=== PATIENT | female | born 1990 | race Caucasian/White ===

== ENCOUNTER 2016-12-13 04:47 | Observation (INO) | payer OTHER, MEDICARE, MEDICAID ==
[~2016-12-13] VITALS: Ht 167.6 cm; Wt 111.0 kg
[~2016-12-13 04:47] MED LIST: AC325T PO; ACHD5005 PO; ALBU17AE23 IH; ALBU17AE3 IH; ALPR.25T PO; ALPR.5T; ALPR.5T PO; AMOX1TAB10 PO; AMOX400S7 PO; AMOX500C2; AMOX500C2 PO; AZIT250T PO; AZTH250C PO; BACL10TA; BARIATRIC VITAMIN PO; BIRTH CONTROL; CEFP500T4 PO; CEFU500T5 PO; CEPH500C PO; CLON0.5T3; CYCL10TA9 PO; DCS100C PO; DOXY100C2 PO; ESCI5SOL PO; ESOM20SU PO; FAMO1TAB21 PO; FLC100T1 PO; FLC150T PO; FLUC200T45 PO; HCT25T PO; HCTZ12.5T PO; HYDR-3454 PO; HYDR-3812; HYDR118S10 PO; HYDR1TAB PO; HYOS0.1216 PO; LEVO500T69 PO; LEXAPRO; LORA10TA7; LSNP10T PO; MDR10T PO; METF-380 PO; METH4TAB PO; METR500T PO; MTF500T PO; NAPR-243 PO; NEOM10SO20 RIGHT EAR; NFMET1000; NYST1000; NYST1POW15 TOP; ONDA-42 SL; ONDA4TAB8 PO; PANT40TA PO; PRCD5U PO; PRD20T PO; PRM25T PO; PROM25SU10 PR; ROBITUSSIN; RT-ALBUINH IH; SCR1T PO; SMV10T PO; SSD50T TOP; SULF1TAB38 PO; TOPAMAX; TRAM-21 PO; TRIA16.5 NSEACH; TRM50T PO; [UNRECOGNIZED DRUG - OTHER]
[2016-12-13 05:14] LABS: BILIRUBIN,URINE NEGATIVE (NEGATIVE); KETONES,URINE NEGATIVE (NEGATIVE); LEUKOCYTE ESTERASE ,URINE 3+ (NEGATIVE); NITRITE,URINE NEGATIVE (NEGATIVE); PH,URINE 5 (5-9); PROTEIN,URINE 2+ (NEGATIVE); UROBILINOGEN,URINE 1 MG/DL (NORMAL)
[2016-12-13 05:31] LABS: MEAN PLATELET VOLUME 10.8 FL (7.4-10.4); RED BLOOD COUNT 4.61 10^6/uL (4.35-5.85); RED CELL DISTRIBUTION WIDTH 12.9 % (10.0-14.5); WHITE BLOOD COUNT 9.3 10^3/uL (4.3-11.0)
[2016-12-13] MEDS ORDERED: NS IV 1000 ML 1,000 ML ONE (05:33)
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
[2016-12-13 05:34] LABS: WBC,URINE 25-50 /HPF
[2016-12-13] MEDS ORDERED: NS IV 1000 ML 1,000 ML IV ONE (05:36)
[2016-12-13] MEDS ORDERED: BUSP10TA95 (05:39)
[2016-12-13] MEDS ORDERED: TRAZODONE (05:39)
[2016-12-13 05:49] LABS: ALANINE AMINOTRANSFERASE 54 U/L (0-55); ALBUMIN 3.9 G/DL (3.2-4.5); ALCOHOL 30 MG/DL (<10); ANION GAP 11 MMOL/L (5-14); ASPARTATE AMINO TRANSFERASE 67 U/L (5-34); BILIRUBIN,DIRECT 0.2 MG/DL (0.0-0.3); BILIRUBIN,INDIRECT 0.3 MG/DL; BILIRUBIN,TOTAL 0.5 MG/DL (0.1-1.0); BLOOD UREA NITROGEN 8 MG/DL (7-18); BUN/CREATININE RATIO 12; CALCIUM 8.9 MG/DL (8.5-10.1); CARBON DIOXIDE 22 MMOL/L (21-32); CHLORIDE 107 MMOL/L (98-107); CREATININE SERUM 0.67 MG/DL (0.60-1.30); GFR ESTIMATED > 60; GLUCOSE 78 MG/DL (70-105); POTASSIUM 4.2 MMOL/L (3.6-5.0); SODIUM 140 MMOL/L (135-145); TOTAL PROTEIN 7.9 G/DL (6.4-8.2)
[2016-12-13 05:55] LABS: TROPONIN I < 0.30 NG/ML (<0.30)
[2016-12-13] MEDS ORDERED: fentaNYL INJECTION 100 MCG/2 ML AMP IVP ONE (06:30)
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
[2016-12-13 07:45] VITALS: BP 130/84
[2016-12-13] MEDS ORDERED: BUSP5TAB59 PO (08:09)
[2016-12-13] MEDS ORDERED: TRAZ150T72 PO (08:09)
[2016-12-13] MEDS ORDERED: BACL10TA PO (08:09)
[2016-12-13] MEDS ORDERED: DULO60CA6 PO (08:09)
[2016-12-13] MEDS ORDERED: HYDR-3812 PO (08:09)
[2016-12-13] MEDS ORDERED: fentaNYL INJECTION 100 MCG/2 ML AMP IV PRN (08:15)
[2016-12-13] MEDS ORDERED: CATHETER FLUSH 10 ML SYR IV PRN (08:15)
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
[2016-12-13] MEDS ORDERED: cefTRIAXone INJECTION 1,000 MG in NS (IVPB) 50 ML IV SCH (09:00)
[2016-12-13] MEDS ORDERED: ACET-2267 PO (09:04)
[2016-12-13] MEDS ORDERED: BARIATRIC ADVANTAGE PO (09:04)
[2016-12-13] MEDS ORDERED: BUSP10TA95 PO (09:04)
[2016-12-13] MEDS ORDERED: HYDROcodone/APAP 5 MG/325 MG (LORTAB) TAB PO PRN (09:45)
[2016-12-13] MEDS ORDERED: DULoxetine 30 MG (CYMBALTA) CAP PO SCH (10:00)
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
[2016-12-13] MEDS ORDERED: busPIRone 5 MG (BUSPAR) TAB PO SCH (13:00)
[2016-12-13] MEDS ORDERED: BACLOFEN 10 MG (LIORESAL) TAB PO SCH (13:00)
[2016-12-13] MEDS ORDERED: busPIRone 10 MG (BUSPAR) TAB PO SCH (13:00)
[2016-12-13] MEDS ORDERED: CATHETER FLUSH 10 ML SYR IV SCH (14:00)
[2016-12-13] MEDS ORDERED: traZODone 150 MG (DESYREL) TABLET PO SCH (21:00)
== END 2016-12-13 14:33 | disposition home or self-care (01) ==
LOC: EDUNIT# 04:47 → ER 04:49 → UNDOADMOB 07:15 → ICU 07:15 → UNDODISOB 14:55
PROVIDERS: ADMIT Family Medicine; ATTEND Family Medicine
DX: S30.1XXA Contusion of abdominal wall, initial encounter (principal); S80.02XA Contusion of left knee, initial encounter; S20.212A Contusion of left front wall of thorax, initial encounter; S20.211A Contusion of right front wall of thorax, initial encounter; J45.909 Unspecified asthma, uncomplicated; G47.30 Sleep apnea, unspecified; I10 Essential (primary) hypertension; E11.9 Type 2 diabetes mellitus without complications; E66.01 Morbid (severe) obesity due to excess calories; E03.9 Hypothyroidism, unspecified; F31.9 Bipolar disorder, unspecified; F20.9 Schizophrenia, unspecified; Z68.39 Body mass index [BMI] 39.0-39.9, adult; V48.5XXA Car driver injured in noncollision transport accident in traffic accident, initial encounter
CPT/HCPCS: 36415; 70450; 71010; 71260; 72125; 74177; 80048; 80076; 80320; 81000; 84484; 84703; 85027; 86850; 86900; 86901; 87088; 87186; 93005; 93041

== ENCOUNTER 2017-01-05 11:06 | Emergency (ER) | payer MEDICARE, MEDICAID ==
[~2017-01-05] VITALS: Ht 167.6 cm; Wt 111.0 kg
[~2017-01-05 11:06] MED LIST changes: +ACET-2267 PO; +BACL10TA PO; +BARIATRIC ADVANTAGE PO; +BUSP10TA95; +BUSP10TA95 PO; +BUSP5TAB59 PO; +DULO60CA6 PO; +HYDR-3812 PO; +TRAZ150T72 PO; +TRAZODONE
[2017-01-05] MEDS ORDERED: KETOROLAC 30 MG/ML VIAL ONE (11:32)
--- NOTE | 2017-01-05 11:37 | ED GU-Female ---
General Chief Complaint: -Female Stated Complaint: UTI, FEVER Nursing Triage Note: States having pain with urination times3 days, nausea vomiting. pain to low back and bilat flank area. Unable to give urine sample Nursing Sepsis Screen: Possible Sepsis Risk Source: patient Exam Limitations: no limitations History of Present Illness Time seen by provider: 11:36 Initial Comments To ER with a three-day history of nausea vomiting, midline low back pain, chills , urinary hesitancy and frequency. Timing/Duration: just prior to arrival Severity/Quality: moderate Radiation: none Activities at Onset: none Prior Genitourinary Problems: none Associated Symptoms: dysuria Allergies and Home Medications Allergies Coded Allergies: levofloxacin (Unverified Allergy, Mild, N/V, 01/05/17) Home Medications Acetaminophen 500 Mg Tablet, 500-1,000 MG PO Q4H PRN for PAIN-MILD, (Reported) Baclofen 10 Mg Tablet, 10 MG PO TID, (Reported) Buspirone HCl 5 Mg Tablet, 5 MG PO TID, (Reported) TAKES ALONG WITH 10MG TABLET FOR TOTAL DOSE OF 15MG Buspirone HCl 10 Mg Tablet, 10 MG PO TID, (Reported) TAKES ALONG WITH 5MG TABLET FOR TOTAL DAILY DOSE OF 15MG Duloxetine HCl 60 Mg Capsule.dr, 120 MG PO DAILY, (Reported) TAKES 2 (60MG) CAPSULES Hydrocodone/Acetaminophen 1 Each Tablet, 1 TAB PO BID PRN for PAIN-MODERATE, ( Reported) Ondansetron 8 Mg Tab.rapdis, 8 MG PO Q6H PRN for NAUSEA/VOMITING-1ST LINE, #10 Prescribed by: SHALINI POON on 01/05/17 1256 Sulfamethoxazole/Trimethoprim 1 Each Tablet, 1 EACH PO BID, #14 Prescribed by: SHALINI POON on 01/05/17 1256 Trazodone HCl 150 Mg Tablet, 300 MG PO HS, (Reported) TAKES 2 (150MG) TABLETS [Bariatric Advantage] , 1 TAB PO TID, (Reported) Constitutional: see HPI, chills, No fever, malaise EENTM: see HPI Respiratory: no symptoms reported Cardiovascular: no symptoms reported Gastrointestinal: nausea, vomiting Genitourinary: see HPI, burning, dysuria, frequency, flank pain Musculoskeletal: no symptoms reported Skin: no symptoms reported Psychiatric/Neurological: No Symptoms Reported Past [place]-Hwqexb-Awgnjh Hx Patient Social History Alcohol Use: Rarely Uses Recreational Drug Use: No Smoking Status: Never a Smoker 2nd Hand Smoke Exposure: No Recent Foreign Travel: No Contact w/Someone Who Travel: No Recent Infectious Disease Expo: No Recent Hopitalizations: No Immunizations Up To Date Tetanus Booster (TDap): Less than 5yrs PED Vaccines UTD: No Date of Influenza Vaccine: May 06, 2014 Seasonal Allergies Seasonal Allergies: No Surgeries HX Surgeries: Yes (LAP BAND , EAR TUBES, lap band removed, duodenal switch, EGD) Surgeries: Abdominal, Appendectomy, Ear Surgery, Gallbladder Respiratory Hx Respiratory Disorders: Yes (cpap at night) Respiratory Disorders: Asthma Cardiovascular Hx Cardiac Disorders: Yes Cardiac Disorders: Hypertension Neurological Hx Neurological Disorders: No Reproductive System Hx Reproductive Disorders: Yes (IRREGULAR PERIODS) Female Reproductive Disorders: Menstrual Problems Genitourinary Hx Genitourinary Disorders: Yes Genitourinary Disorders: UTI-Chronic Gastrointestinal Hx Gastrointestinal Disorders: Yes (03/25/14 Biliopancreatic Diversion with Duodenal Switch) Musculoskeletal Hx Musculoskeletal Disorders: No Endocrine Hx Endocrine Disorders: Yes (morbid obesity) Endocrine Disorders: Hypothyroidsim, Diabetes, Non-Insulin dep HEENT HX ENT Disorders: No Cancer Hx Cancer: No Psychosocial Hx Psychiatric Problems: Yes Behavioral Health Disorders: Bipolar, Schizophrenia, Depression Integumentary HX Skin/Integumentary Disorder: No Blood Transfusions Hx Blood Disorders: No Family Medical History Family Medial History: Family history: Arthritis 03 MOTHER Family history: Asthma 03 FATHER Family history: Diabetes mellitus 03 MOTHER HALF SISTER Family history: Glaucoma 03 MOTHER Family history: Hypertension 03 FATHER Family history: Osteoporosis 03 MOTHER Family history: Thyroid disorder 09 SISTER (THYROIDECTOMY) Headache 03 MOTHER 09 SISTER Hearing loss 03 MOTHER History of - respiratory disease 03 FATHER Hypercholesterolemia 03 FATHER No Family History of: Abdominal aortic aneurysm [place]'s disease Alcoholism Aphasia Cancer Cancer of colon Cataract Chest pain Congenital heart disease Congestive heart failure Cystic fibrosis Dementia Dysphagia Family history: Allergy Family history: Alzheimer's disease Family history: Breast disease Family history: Cardiovascular disease Family history: Coronary thrombosis Family history: Gastrointestinal disease Heart disease Hereditary disease History of - anemia History of - disorder History of drug abuse Human immunodeficiency virus (HIV) seropositivity Infertile Kidney disease Malignant neoplasm of lung Myocardial infarction Parkinson's disease Prostate cancer Psychotic disorder Seizure disorder Stroke Tuberculosis Visual impairment Physical Exam Vital Signs Vital Sign - Last 12Hours 01/05/17 11:15 Temp 99.2 Pulse 98 Resp 20 B/P (MAP) 129/69 Pulse Ox 96 Capillary Refill : Less Than 3 Seconds General Appearance: WD/WN, no apparent distress HEENT: PERRL/EOMI, normal ENT inspection Neck: non-tender, full range of motion Cardiovascular: regular rate, rhythm, no murmur Respiratory: no respiratory distress, no accessory muscle use Gastrointestinal: normal bowel sounds, non tender, soft Back: CVA tenderness (R), CVA tenderness (L) Extremities: normal range of motion, non-tender Neurologic/Psychiatric: alert, normal mood/affect, oriented x 3 Skin: normal color, warm/dry Progress/Results/Core Measures Results/Orders Lab Results Laboratory Tests Test 01/05/17 11:17 01/05/17 11:29 Range/Units Urine Color BROWN H Urine Clarity VERY CLOUDY H Urine pH 6 5-9 Urine Specific [place] 1.020 1.016-1.022 Urine Protein 2+ H NEGATIVE Urine Glucose (UA) NEGATIVE NEGATIVE Urine Ketones 1+ H NEGATIVE Urine Nitrite POSITIVE H NEGATIVE Urine Bilirubin NEGATIVE NEGATIVE Urine Urobilinogen NORMAL NORMAL MG/DL Urine Leukocyte Esterase 2+ H NEGATIVE Urine RBC (Auto) 1+ H NEGATIVE Urine RBC NONE /HPF Urine WBC 10-25 H /HPF Urine Squamous Epithelial Cells 2-5 /HPF Urine Crystals NONE /LPF Urine Bacteria LARGE H /HPF Urine Casts NONE /LPF Urine Mucus MODERATE H /LPF Urine Culture Indicated YES White Blood Count 15.2 H 4.3-11.0 10^3/uL Red Blood Count 4.10 L 4.35-5.85 10^6/uL Hemoglobin 12.6 11.5-16.0 G/DL Hematocrit 38 35-52 % Mean Corpuscular Volume 92 80-99 FL Mean Corpuscular Hemoglobin 31 25-34 PG Mean Corpuscular Hemoglobin Concent 33 32-36 G/DL Red Cell Distribution Width 12.9 10.0-14.5 % Platelet Count 125 L 130-400 10^3/uL Mean Platelet Volume 11.2 H 7.4-10.4 FL Neutrophils (%) (Auto) 90 H 42-75 % Lymphocytes (%) (Auto) 5 L 12-44 % Monocytes (%) (Auto) 5 0-12 % Eosinophils (%) (Auto) 0 0-10 % Basophils (%) (Auto) 0 0-10 % Neutrophils # (Auto) 13.8 H 1.8-7.8 X 10^3 Lymphocytes # (Auto) 0.8 L 1.0-4.0 X 10^3 Monocytes # (Auto) 0.7 0.0-1.0 X 10^3 Eosinophils # (Auto) 0.0 0.0-0.3 10^3/uL Basophils # (Auto) 0.0 0.0-0.1 10^3/uL Neutrophils % (Manual) 80 % Lymphocytes % (Manual) 5 % Monocytes % (Manual) 4 % Band Neutrophils 11 % Dohle Bodies SLIGHT Blood Morphology Comment NORMAL Sodium Level 135 135-145 MMOL/L Potassium Level 3.2 L 3.6-5.0 MMOL/L Chloride Level 104 98-107 MMOL/L Carbon Dioxide Level 22 21-32 MMOL/L Anion Gap 9 5-14 MMOL/L Blood Urea Nitrogen 8 7-18 MG/DL Creatinine 0.65 0.60-1.30 MG/DL Estimat Glomerular Filtration Rate > 60 BUN/Creatinine Ratio 12 Glucose Level 110 H 70-105 MG/DL Calcium Level 8.5 8.5-10.1 MG/DL Total Bilirubin 0.9 0.1-1.0 MG/DL Aspartate Amino Transf (AST/SGOT) 39 H 5-34 U/L Alanine Aminotransferase (ALT/SGPT) 34 0-55 U/L Alkaline Phosphatase 57 40-136 U/L Total Protein 6.5 6.4-8.2 GM/DL Albumin 3.1 L 3.2-4.5 GM/DL Serum Test, Qualitative NEGATIVE NEGATIVE My Orders Orders - SHALINI POON APRN Ua Culture If Indicated (01/05/17 11:14) Urine Bedside (01/05/17 11:14) Cbc With Automated Diff (01/05/17 11:31) Comprehensive Metabolic Panel (01/05/17 11:31) Hcg,Qualitative Serum (01/05/17 11:31) Ns Iv 1000 Ml (Sodium Chloride 0.9%) (01/05/17 11:45) Ondansetron Injection (Zofran Injectio (01/05/17 11:45) Ketorolac Injection (Toradol Injection) (01/05/17 11:45) Ketorolac Injection (Toradol Injection) (01/05/17 11:32) Manual Differential (01/05/17 11:29) Fentanyl Injection (Sublimaze Injection (01/05/17 12:15) Ns Iv 1000 Ml (Sodium Chloride 0.9%) (01/05/17 12:45) Urine Culture (01/05/17 11:17) Ceftriaxone Injection (Rocephin Injectio (01/05/17 13:00) Medications Given in ED Current Medications Medications Dose Ordered Sig/Tulio Route Start Time Stop Time Status Last Admin Dose Admin Ceftriaxone Sodium 1000 mg/ Sodium Chloride 50 ml @ 100 mls/hr ONCE ONCE IV 01/05/17 13:00 01/05/17 13:29 01/05/17 13:00 100 MLS/HR Fentanyl Citrate 50 mcg ONCE ONCE IVP 01/05/17 12:15 01/05/17 12:16 DC 01/05/17 12:07 50 MCG Ketorolac Tromethamine 30 mg STK-MED ONCE .ROUTE 01/05/17 11:32 01/05/17 11:38 DC 01/05/17 11:40 30 MG Ondansetron HCl 4 mg ONCE ONCE IVP 01/05/17 11:45 01/05/17 11:46 DC 01/05/17 11:37 4 MG Vital Signs/I&O Vital Sign - Last 12Hours 01/05/17 11:15 Temp 99.2 Pulse 98 Resp 20 B/P (MAP) 129/69 Pulse Ox 96 Blood Pressure Mean: 89 Departure Impression Impression: Primary Impression: Urinary tract infection Disposition: 01 HOME, SELF-CARE Condition: Stable Departure-Patient Inst. Decision time for Depature: 12:55 Referrals: GABINO GARCIA DO (PCP/Family) Primary Care Physician Patient Instructions: Urinary Tract Infection, Adult (DC) Add. Discharge Instructions: 1. Return to ER for any concerns 2. Follow-up with your doctor next week 3.antibiotics and nausea medication as directed All discharge instructions reviewed with patient and/or family. Voiced understanding. Scripts Sulfamethoxazole/Trimethoprim (Bactrim Ds Tablet) 1 Each Tablet 1 EACH PO BID, #14 TAB Prov: SHALINI POON APRN 01/05/17 Ondansetron (Zofran Odt) 8 Mg Tab.rapdis 8 MG PO Q6H Y for NAUSEA/VOMITING-1ST LINE, #10 TAB Prov: SHALINI POON APRN 01/05/17 SHALINI POON APRN Jan 05, 2017 11:37
[2017-01-05 11:39] LABS: BASOPHILS % (AUTO) 0 % (0-10); EOSINOPHILS % (AUTO) 0 % (0-10); LYMPHOCYTES # (AUTO) 0.8 X 10^3 (1.0-4.0); LYMPHOCYTES % (AUTO) 5 % (12-44); MEAN CORPUSCULAR HEMOGLOBIN 31 PG (25-34); MEAN CORPUSCULAR HGB CONC 33 G/DL (32-36); MEAN CORPUSCULAR VOLUME 92 FL (80-99); MEAN PLATELET VOLUME 11.2 FL (7.4-10.4); MONOCYTES # (AUTO) 0.7 X 10^3 (0.0-1.0); MONOCYTES % (AUTO) 5 % (0-12); NEUTROPHILS # (AUTO) 13.8 X 10^3 (1.8-7.8); NEUTROPHILS % (AUTO) 90 % (42-75); PLATELET COUNT 125 10^3/uL (130-400); RED CELL DISTRIBUTION WIDTH 12.9 % (10.0-14.5); WHITE BLOOD COUNT 15.2 10^3/uL (4.3-11.0)
[2017-01-05] MEDS ORDERED: ONDANSETRON 4 MG/2 ML (SDV) Z0FRAN IVP ONE (11:45)
[2017-01-05] MEDS ORDERED: KETOROLAC 30 MG/ML VIAL IVP ONE (11:45)
[2017-01-05] MEDS ORDERED: NS IV 1000 ML 1,000 ML IV SCH ×2 (11:45→12:45)
[2017-01-05 11:59] LABS: ALANINE AMINOTRANSFERASE 34 U/L (0-55); ALBUMIN 3.1 GM/DL (3.2-4.5); ANION GAP 9 MMOL/L (5-14); ASPARTATE AMINO TRANSFERASE 39 U/L (5-34); BILIRUBIN,TOTAL 0.9 MG/DL (0.1-1.0); BLOOD UREA NITROGEN 8 MG/DL (7-18); BUN/CREATININE RATIO 12; CALCIUM 8.5 MG/DL (8.5-10.1); CARBON DIOXIDE 22 MMOL/L (21-32); CHLORIDE 104 MMOL/L (98-107); CREATININE SERUM 0.65 MG/DL (0.60-1.30); GFR ESTIMATED > 60; GLUCOSE 110 MG/DL (70-105); POTASSIUM 3.2 MMOL/L (3.6-5.0); SODIUM 135 MMOL/L (135-145); TOTAL PROTEIN 6.5 GM/DL (6.4-8.2)
[2017-01-05] MEDS ORDERED: fentaNYL INJECTION 100 MCG/2 ML AMP IVP ONE (12:15)
[2017-01-05 12:33] LABS: BILIRUBIN,URINE NEGATIVE (NEGATIVE); KETONES,URINE 1+ (NEGATIVE); LEUKOCYTE ESTERASE ,URINE 2+ (NEGATIVE); NITRITE,URINE POSITIVE (NEGATIVE); PH,URINE 6 (5-9); PROTEIN,URINE 2+ (NEGATIVE); UROBILINOGEN,URINE NORMAL (NORMAL)
[2017-01-05 12:50] LABS: BAND NEUTROPHILS 11 %; LYMPHOCYTES % (MANUAL) 5 %; NEUTROPHILS % (MANUAL) 80 %
[2017-01-05] MEDS ORDERED: SULF1TAB35 PO (12:56)
[2017-01-05] MEDS ORDERED: ONDA8TAB9 PO (12:56)
[2017-01-05] MEDS ORDERED: cefTRIAXone INJECTION 1,000 MG in NS (IVPB) 50 ML IV ONE (13:00)
[2017-01-05 13:10] VITALS: BP 108/63
--- OUTSIDE RECORDS SUMMARY | 2017-01-08 04:13 | XMS REPORT | Continuity of Care Document ---
Author Author [facility] Organization [facility] Address Unknown Phone Unavailable Care Team Providers Care Oxygen Equipment Technician Name Role Phone Doug Tafoya PCP [phone] Source Comments Some departments are not documenting in the electronic medical record. If you do not see the information that you expected, contact Release of Information in the Health Information Management department at [phone] for further assistance in locating additional records.[facility] Active Allergies and Adverse Reactions No Known Allergies Current Medications Prescription Sig. Disp. Refills Start End Date Status Date LEXAPRO PO 08/12/19 Active 08 ABILIFY PO 08/12/19 Active 08 METFORMIN PO 08/12/19 Active 08 LASIX PO 08/12/19 Active 08 LAMICTAL PO 08/12/19 Active 08 ENALAPRIL MALEATE PO 08/12/19 Active 08 Active Problems Not on file Social History Tobacco Use Types Packs/Day Years Used Date Never Smoker Alcohol Use Drinks/Week oz/Week Comments No Last Filed Vital Signs Vital Sign Reading Time Taken Blood Pressure 172/94 08/12/2007 1:38 PM [employer] [employer] Pulse 122 08/12/2007 1:38 PM [employer] Temperature 38.2 C (100.8 F) 08/12/2007 1:37 PM [employer] [employer] Respiratory Rate - - Height - - Weight - - Body Mass Index - - Oxygen Saturation 97% 08/12/2007 1:37 PM [facility] [employer] Plan of Care Health Maintenance Due Date Last Done Comments Physical (Comprehensive) 12/17/1995 Exam Pertussis Vaccine 12/17/1999 Tetanus Vaccine 2005 Cervical Cancer Screening 2009 Influenza Vaccine 03/08/2017 Results from Last 3 Months Not on file
== END 2017-01-05 13:10 | disposition home or self-care (01) ==
LOC: EDUNIT# 11:06 → ER 11:07
DX: N39.0 Urinary tract infection, site not specified (principal); J45.909 Unspecified asthma, uncomplicated; I10 Essential (primary) hypertension; E03.9 Hypothyroidism, unspecified; F30.9 Manic episode, unspecified; F20.9 Schizophrenia, unspecified; E11.9 Type 2 diabetes mellitus without complications; Z90.49 Acquired absence of other specified parts of digestive tract
CPT/HCPCS: 36415; 80053; 81000; 84703; 85007; 85027; 87088; 87186; 96361; 96374; 96375

== ENCOUNTER 2017-05-07 15:22 | Emergency (ER) | payer MEDICARE, MEDICAID ==
[~2017-05-07] VITALS: Ht 167.6 cm; Wt 90.7 kg
[~2017-05-07 15:22] MED LIST changes: +ONDA8TAB9 PO; +SULF1TAB35 PO
[2017-05-07] MEDS ORDERED: ORPHENADRINE 60 MG/2 ML (NORFLEX) AMP IM ONE (15:45)
[2017-05-07] MEDS ORDERED: KETOROLAC 60 MG/2 ML VIAL IM ONE (15:45)
--- NOTE | 2017-05-07 15:46 | ED General ---
General Chief Complaint: General Problems/Pain Stated Complaint: BACK/HEAD/NECK PAIN Source of Information: Patient Exam Limitations: No Limitations History of Present Illness Time Seen by Provider: 15:45 Initial Comments To ER with head neck and back pain. This began 3-4 days ago. The pain seems to originate in the low back, go up her spine and terminates behind her eyes. No injury. No fevers or chills. No nausea or vomiting. No recent illness. She ran out of her hydrocodone yesterday. Timing/Duration: 3-4 Days Severity: Moderate Associated Systoms: Headaches Allergies and Home Medications Allergies Coded Allergies: levofloxacin (Unverified Allergy, Mild, N/V, 01/05/17) Home Medications Acetaminophen 500 Mg Tablet, 500-1,000 MG PO Q4H PRN for PAIN-MILD, (Reported) Baclofen 10 Mg Tablet, 10 MG PO TID, (Reported) Buspirone HCl 5 Mg Tablet, 5 MG PO TID, (Reported) TAKES ALONG WITH 10MG TABLET FOR TOTAL DOSE OF 15MG Buspirone HCl 10 Mg Tablet, 10 MG PO TID, (Reported) TAKES ALONG WITH 5MG TABLET FOR TOTAL DAILY DOSE OF 15MG Cyclobenzaprine HCl 5 Mg Tablet, 5 MG PO TID, #21 Prescribed by: SHALINI POON on 05/07/17 1629 Duloxetine HCl 60 Mg Capsule.dr, 120 MG PO DAILY, (Reported) TAKES 2 (60MG) CAPSULES Hydrocodone/Acetaminophen 1 Each Tablet, 1 TAB PO BID PRN for PAIN-MODERATE, ( Reported) Ondansetron 8 Mg Tab.rapdis, 8 MG PO Q6H PRN for NAUSEA/VOMITING-1ST LINE, #10 Prescribed by: SHALINI POON on 01/05/17 1256 Sulfamethoxazole/Trimethoprim 1 Each Tablet, 1 EACH PO BID, #14 Prescribed by: SHALINI POON on 01/05/17 1256 Trazodone HCl 150 Mg Tablet, 300 MG PO HS, (Reported) TAKES 2 (150MG) TABLETS [Bariatric Advantage] , 1 TAB PO TID, (Reported) Constitutional: see HPI EENTM: see HPI Respiratory: no symptoms reported Cardiovascular: no symptoms reported Genitourinary: no symptoms reported Musculoskeletal: see HPI, back pain Skin: no symptoms reported Psychiatric/Neurological: No Symptoms Reported Hematologic/Lymphatic: No Symptoms Reported Past Oxgfkmj-Mtktkt-Anrlyu Hx Patient Social History 2nd Hand Smoke Exposure: No Recent Foreign Travel: No Contact w/Someone Who Travel: No Recent Hopitalizations: No Immunizations Up To Date Tetanus Booster (TDap): Less than 5yrs PED Vaccines UTD: No Date of Influenza Vaccine: May 06, 2014 Seasonal Allergies Seasonal Allergies: No Surgeries History of Surgeries: Yes (LAP BAND , EAR TUBES, LAP BAND REMOVED, DUODENAL SWITCH, EGD) Surgeries: Abdominal, Appendectomy, Ear Surgery, Gallbladder Respiratory History of Respiratory Disorde: Yes Respiratory Disorders: Asthma Cardiovascular History of Cardiac Disorders: No Cardiac Disorders: Hypertension Neurological History of Neurological Disord: No Reproductive System Hx Reproductive Disorders: Yes (IRREGULAR PERIODS) Female Reproductive Disorders: Menstrual Problems Genitourinary Genitourinary Disorders: UTI-Chronic Gastrointestinal History of Gastrointestinal Di: Yes (03/25/14 Biliopancreatic Diversion with Duodenal Switch, hx feeding tube) Musculoskeletal History of Musculoskeletal Dis: No Endocrine History of Endocrine Disorders: No (prior to lap band) Endocrine Disorders: Hypothyroidsim, Diabetes, Non-Insulin dep HEENT History of HEENT Disorders: No Cancer History of Cancer: No Psychosocial History of Psychiatric Problem: Yes Behavioral Health Disorders: Bipolar, Schizophrenia, Depression Integumentary History of Skin or Integumenta: No Blood Transfusions History of Blood Disorders: No Family Medical History Family Medial History: Family history: Arthritis 03 MOTHER Family history: Asthma 03 FATHER Family history: Diabetes mellitus 03 MOTHER HALF SISTER Family history: Glaucoma 03 MOTHER Family history: Hypertension 03 FATHER Family history: Osteoporosis 03 MOTHER Family history: Thyroid disorder 09 SISTER (THYROIDECTOMY) Headache 03 MOTHER 09 SISTER Hearing loss 03 MOTHER History of - respiratory disease 03 FATHER Hypercholesterolemia 03 FATHER No Family History of: Abdominal aortic aneurysm Cristian's disease Alcoholism Aphasia Cancer Cancer of colon Cataract Chest pain Congenital heart disease Congestive heart failure Cystic fibrosis Dementia Dysphagia Family history: Allergy Family history: Alzheimer's disease Family history: Breast disease Family history: Cardiovascular disease Family history: Coronary thrombosis Family history: Gastrointestinal disease Heart disease Hereditary disease History of - anemia History of - disorder History of drug abuse Human immunodeficiency virus (HIV) seropositivity Infertile Kidney disease Malignant neoplasm of lung Myocardial infarction Parkinson's disease Prostate cancer Psychotic disorder Seizure disorder Stroke Tuberculosis Visual impairment Physical Exam Vital Signs Vital Sign - Last 12Hours 05/07/17 15:43 Temp 98.2 Pulse 88 Resp 16 B/P (MAP) 103/57 Pulse Ox 98 Capillary Refill : General Appearance: No Apparent Distress, WD/WN Eyes: Bilateral Eye Normal Inspection, Bilateral Eye PERRL, Bilateral Eye EOMI HEENT: PERRL/EOMI, TMs Normal Neck: Full Range of Motion, Normal Inspection Respiratory: Normal Breath Sounds, No Accessory Muscle Use, No Respiratory Distress Cardiovascular: Regular Rate, Rhythm, Normal Peripheral Pulses Gastrointestinal: Normal Bowel Sounds, Non Tender, Soft Extremity: Normal Capillary Refill, Normal Inspection Neurologic/Psychiatric: Alert, Oriented x3, No Motor/Sensory Deficits Skin: Normal Color, Warm/Dry Progress/Results/Core Measures Results/Orders Lab Results Laboratory Tests Test 05/07/17 15:35 05/07/17 16:11 Range/Units White Blood Count 5.5 4.3-11.0 10^3/uL Red Blood Count 4.33 L 4.35-5.85 10^6/uL Hemoglobin 13.1 11.5-16.0 G/DL Hematocrit 40 35-52 % Mean Corpuscular Volume 92 80-99 FL Mean Corpuscular Hemoglobin 30 25-34 PG Mean Corpuscular Hemoglobin Concent 33 32-36 G/DL Red Cell Distribution Width 13.1 10.0-14.5 % Platelet Count 177 130-400 10^3/uL Mean Platelet Volume 11.5 H 7.4-10.4 FL Neutrophils (%) (Auto) 47 42-75 % Lymphocytes (%) (Auto) 46 H 12-44 % Monocytes (%) (Auto) 6 0-12 % Eosinophils (%) (Auto) 1 0-10 % Basophils (%) (Auto) 1 0-10 % Neutrophils # (Auto) 2.5 1.8-7.8 X 10^3 Lymphocytes # (Auto) 2.5 1.0-4.0 X 10^3 Monocytes # (Auto) 0.3 0.0-1.0 X 10^3 Eosinophils # (Auto) 0.1 0.0-0.3 10^3/uL Basophils # (Auto) 0.0 0.0-0.1 10^3/uL Sodium Level 141 135-145 MMOL/L Potassium Level 4.1 3.6-5.0 MMOL/L Chloride Level 110 H 98-107 MMOL/L Carbon Dioxide Level 23 21-32 MMOL/L Anion Gap 8 5-14 MMOL/L Blood Urea Nitrogen 10 7-18 MG/DL Creatinine 0.60 0.60-1.30 MG/DL Estimat Glomerular Filtration Rate > 60 BUN/Creatinine Ratio 17 Glucose Level 91 70-105 MG/DL Calcium Level 8.5 8.5-10.1 MG/DL Urine Color YELLOW Urine Clarity SLIGHTLY CLOUDY Urine pH 6.5 5-9 Urine Specific Dalton 1.010 L 1.016-1.022 Urine Protein NEGATIVE NEGATIVE Urine Glucose (UA) NEGATIVE NEGATIVE Urine Ketones NEGATIVE NEGATIVE Urine Nitrite NEGATIVE NEGATIVE Urine Bilirubin NEGATIVE NEGATIVE Urine Urobilinogen NORMAL NORMAL MG/DL Urine Leukocyte Esterase NEGATIVE NEGATIVE Urine RBC (Auto) NEGATIVE NEGATIVE Urine RBC NONE /HPF Urine WBC NONE /HPF Urine Squamous Epithelial Cells 10-25 H /HPF Urine Crystals NONE /LPF Urine Bacteria NONE /HPF Urine Casts NONE /LPF Urine Mucus NEGATIVE /LPF Urine Culture Indicated NO My Orders Orders - SHALINI POON APRN Cbc With Automated Diff (05/07/17 15:43) Basic Metabolic Panel (05/07/17 15:43) Ua Culture If Indicated (05/07/17 15:43) Urine Bedside (05/07/17 15:43) Ketorolac Injection (Toradol Injection) (05/07/17 15:45) Orphenadrine Injection (Norflex Injectio (05/07/17 15:45) Medications Given in ED Current Medications Medications Dose Ordered Sig/Tulio Route Start Time Stop Time Status Last Admin Dose Admin Ketorolac Tromethamine 60 mg ONCE ONCE IM 05/07/17 15:45 05/07/17 15:46 DC 05/07/17 16:15 60 MG Orphenadrine Citrate 60 mg ONCE ONCE IM 05/07/17 15:45 05/07/17 15:46 DC 05/07/17 16:16 60 MG Vital Signs/I&O Vital Sign - Last 12Hours 05/07/17 05/07/17 05/07/17 15:43 16:15 16:16 Temp 98.2 98.2 98.2 Pulse 88 Resp 16 B/P (MAP) 103/57 Pulse Ox 98 Departure Impression Impression: Primary Impression: Musculoskeletal back pain Disposition: 01 HOME, SELF-CARE Condition: Stable Departure-Patient Inst. Decision time for Depature: 16:28 Referrals: GABINO GARCIA DO (PCP/Family) Primary Care Physician Patient Instructions: Low Back Pain (DC) Add. Discharge Instructions: 1. Medication as directed 2. Return to ER for any concerns 3. All discharge instructions reviewed with patient and/or family. Voiced understanding. Scripts Cyclobenzaprine HCl (Cyclobenzaprine HCl) 5 Mg Tablet 5 MG PO TID, #21 TAB Prov: SHALINI POON APRN 05/07/17 SHALINI POON APRN May 07, 2017 15:46
[2017-05-07 15:59] LABS: BASOPHILS % (AUTO) 1 % (0-10); EOSINOPHILS # (AUTO) 0.1 10^3/uL (0.0-0.3); EOSINOPHILS % (AUTO) 1 % (0-10); LYMPHOCYTES # (AUTO) 2.5 X 10^3 (1.0-4.0); LYMPHOCYTES % (AUTO) 46 % (12-44); MEAN CORPUSCULAR HEMOGLOBIN 30 PG (25-34); MEAN CORPUSCULAR HGB CONC 33 G/DL (32-36); MEAN CORPUSCULAR VOLUME 92 FL (80-99); MEAN PLATELET VOLUME 11.5 FL (7.4-10.4); MONOCYTES # (AUTO) 0.3 X 10^3 (0.0-1.0); MONOCYTES % (AUTO) 6 % (0-12); NEUTROPHILS # (AUTO) 2.5 X 10^3 (1.8-7.8); NEUTROPHILS % (AUTO) 47 % (42-75); PLATELET COUNT 177 10^3/uL (130-400); RED BLOOD COUNT 4.33 10^6/uL (4.35-5.85); RED CELL DISTRIBUTION WIDTH 13.1 % (10.0-14.5); WHITE BLOOD COUNT 5.5 10^3/uL (4.3-11.0)
[2017-05-07 16:10] LABS: ANION GAP 8 MMOL/L (5-14); BLOOD UREA NITROGEN 10 MG/DL (7-18); BUN/CREATININE RATIO 17; CALCIUM 8.5 MG/DL (8.5-10.1); CARBON DIOXIDE 23 MMOL/L (21-32); CHLORIDE 110 MMOL/L (98-107); GFR ESTIMATED > 60; GLUCOSE 91 MG/DL (70-105); POTASSIUM 4.1 MMOL/L (3.6-5.0); SODIUM 141 MMOL/L (135-145)
[2017-05-07 16:18] LABS: BILIRUBIN,URINE NEGATIVE (NEGATIVE); KETONES,URINE NEGATIVE (NEGATIVE); LEUKOCYTE ESTERASE ,URINE NEGATIVE (NEGATIVE); NITRITE,URINE NEGATIVE (NEGATIVE); PH,URINE 6.5 (5-9); PROTEIN,URINE NEGATIVE (NEGATIVE); UROBILINOGEN,URINE NORMAL (NORMAL)
[2017-05-07] MEDS ORDERED: CYCL5TAB PO (16:29)
[2017-05-07 16:35] VITALS: BP 118/70
== END 2017-05-07 16:35 | disposition home or self-care (01) ==
LOC: EDUNIT# 15:22 → ER 15:24
DX: M79.1 Myalgia (principal); M54.2 Cervicalgia; M54.5 Low back pain; E03.9 Hypothyroidism, unspecified; E11.9 Type 2 diabetes mellitus without complications; F31.9 Bipolar disorder, unspecified; F20.9 Schizophrenia, unspecified; Z90.49 Acquired absence of other specified parts of digestive tract; Z96.22 Myringotomy tube(s) status
CPT/HCPCS: 36415; 80048; 81000; 84703; 85025; 96372; 99284

== ENCOUNTER 2017-07-01 22:03 | Emergency (ER) | payer MEDICARE, MEDICAID ==
[~2017-07-01] VITALS: Ht 167.6 cm; Wt 108.9 kg
[~2017-07-01 22:03] MED LIST changes: +ACHD5005; +CYCL5TAB PO; -HYDR-3812; -HYDR-3812 PO
--- NOTE | 2017-07-01 22:19 | ED Back Pain ---
General Stated Complaint: BACK/LT SHOULDER PAIN AFTER FALL Source of Information: Patient Exam Limitations: No Limitations History of Present Illness Time Seen by Provider: 22:17 Initial Comments To ER with pain down her entire back from her neck to her low back and the left scapula. This began 5 days ago after she fell landing on this side. No shortness of breath or cough. No abdominal pain. Did not strike her head. No other injury. Location: C-Spine, Paraspinous Muscles Timing/Duration: 1 Week Severity: Moderate Allergies and Home Medications Allergies Coded Allergies: levofloxacin (Unverified Allergy, Mild, N/V, 01/05/17) Home Medications Acetaminophen 500 Mg Tablet, 500-1,000 MG PO Q4H PRN for PAIN-MILD, (Reported) Baclofen 10 Mg Tablet, 10 MG PO TID, (Reported) Buspirone HCl 5 Mg Tablet, 5 MG PO TID, (Reported) TAKES ALONG WITH 10MG TABLET FOR TOTAL DOSE OF 15MG Buspirone HCl 10 Mg Tablet, 10 MG PO TID, (Reported) TAKES ALONG WITH 5MG TABLET FOR TOTAL DAILY DOSE OF 15MG Cyclobenzaprine HCl 5 Mg Tablet, 5 MG PO TID, #21 Prescribed by: SHALINI POON on 05/07/17 1629 Duloxetine HCl 60 Mg Capsule.dr, 120 MG PO DAILY, (Reported) TAKES 2 (60MG) CAPSULES Hydrocodone/Acetaminophen 1 Each Tablet, 1 TAB PO BID PRN for PAIN-MODERATE, ( Reported) Ondansetron 8 Mg Tab.rapdis, 8 MG PO Q6H PRN for NAUSEA/VOMITING-1ST LINE, #10 Prescribed by: SHALINI POON on 01/05/17 1256 Sulfamethoxazole/Trimethoprim 1 Each Tablet, 1 EACH PO BID, #14 Prescribed by: SHALINI POON on 01/05/17 1256 Trazodone HCl 150 Mg Tablet, 300 MG PO HS, (Reported) TAKES 2 (150MG) TABLETS [Bariatric Advantage] , 1 TAB PO TID, (Reported) Constitutional: see HPI EENTM: see HPI Respiratory: no symptoms reported Cardiovascular: no symptoms reported Genitourinary: no symptoms reported Musculoskeletal: see HPI, back pain, muscle pain Skin: no symptoms reported Psychiatric/Neurological: No Symptoms Reported Past Yxqyczx-Tiokal-Sqoobo Hx Patient Social History 2nd Hand Smoke Exposure: No Recent Foreign Travel: No Contact w/Someone Who Travel: No Recent Hopitalizations: No Immunizations Up To Date Tetanus Booster (TDap): Less than 5yrs PED Vaccines UTD: No Date of Influenza Vaccine: May 06, 2014 Seasonal Allergies Seasonal Allergies: No Surgeries History of Surgeries: Yes (LAP BAND , EAR TUBES, LAP BAND REMOVED, DUODENAL SWITCH, EGD) Surgeries: Abdominal, Appendectomy, Ear Surgery, Gallbladder Respiratory History of Respiratory Disorde: Yes Respiratory Disorders: Asthma Cardiovascular History of Cardiac Disorders: No Cardiac Disorders: Hypertension Neurological History of Neurological Disord: Yes Neurological Disorders: Headaches /Migraines Reproductive System Hx Reproductive Disorders: Yes (IRREGULAR PERIODS) Female Reproductive Disorders: Menstrual Problems Genitourinary History of Genitourinary Disor: Yes Genitourinary Disorders: UTI-Chronic Gastrointestinal History of Gastrointestinal Di: Yes (03/25/14 Biliopancreatic Diversion with Duodenal Switch, hx feeding tube) Musculoskeletal History of Musculoskeletal Dis: No Endocrine History of Endocrine Disorders: No (prior to lap band) Endocrine Disorders: Hypothyroidsim, Diabetes, Non-Insulin dep HEENT History of HEENT Disorders: No Cancer History of Cancer: No Psychosocial History of Psychiatric Problem: Yes Behavioral Health Disorders: Bipolar, Schizophrenia, Depression Integumentary History of Skin or Integumenta: No Blood Transfusions History of Blood Disorders: No Family Medical History Family Medial History: Family history: Arthritis 03 MOTHER Family history: Asthma 03 FATHER Family history: Diabetes mellitus 03 MOTHER HALF SISTER Family history: Glaucoma 03 MOTHER Family history: Hypertension 03 FATHER Family history: Osteoporosis 03 MOTHER Family history: Thyroid disorder 09 SISTER (THYROIDECTOMY) Headache 03 MOTHER 09 SISTER Hearing loss 03 MOTHER History of - respiratory disease 03 FATHER Hypercholesterolemia 03 FATHER No Family History of: Abdominal aortic aneurysm Oracle's disease Alcoholism Aphasia Cancer Cancer of colon Cataract Chest pain Congenital heart disease Congestive heart failure Cystic fibrosis Dementia Dysphagia Family history: Allergy Family history: Alzheimer's disease Family history: Breast disease Family history: Cardiovascular disease Family history: Coronary thrombosis Family history: Gastrointestinal disease Heart disease Hereditary disease History of - anemia History of - disorder History of drug abuse Human immunodeficiency virus (HIV) seropositivity Infertile Kidney disease Malignant neoplasm of lung Myocardial infarction Parkinson's disease Prostate cancer Psychotic disorder Seizure disorder Stroke Tuberculosis Visual impairment Physical Exam Vital Signs Capillary Refill : General Appearance: No Apparent Distress, WD/WN HEENT: PERRL/EOMI, TMs Normal Neck: Full Range of Motion, Normal Inspection Respiratory: No Accessory Muscle Use, No Respiratory Distress Gastrointestinal: Non Tender, Soft Back: Normal Inspection Extremity: Normal Capillary Refill, Normal Inspection, Normal Range of Motion, Non Tender, Other (full range of motion to the left arm and shoulder. The scapula is nontender to palpation. There is tenderness to palpation to the medial border of the scapula between the medial border of the scapula and the thoracic spine. Pain to the left side of the cervical spine but no midline pain. No paresthesias.) Neurologic/Psychiatric: Alert, Oriented x3, No Motor/Sensory Deficits Skin: Normal Color Progress/Results/Core Measures Results/Orders My Orders Orders - SHALINI POON APRN Rx-Hydrocodone/Apap 5-325 Mg (Rx-Vicodin (07/01/17 22:30) Departure Impression Impression: Primary Impression: Muscle strain Additional Impression: Thoracic back pain Disposition: 01 HOME, SELF-CARE Condition: Stable Departure-Patient Inst. Decision time for Depature: 22:18 Referrals: GABINO GARCIA DO (PCP/Family) Primary Care Physician Patient Instructions: Upper Back Pain Add. Discharge Instructions: 1. Medication as directed. Follow-up with your doctor tomorrow for any persistent pain. Return to the emergency room for any worsening pain. SHALINI POON APRN Jul 01, 2017 22:19
[2017-07-01 22:24] VITALS: BP 172/72
[2017-07-01] MEDS ORDERED: RX-HYDROCODONE/APAP 5/325 MG #4 TAB PK PO PRN (22:30)
== END 2017-07-01 22:23 | disposition home or self-care (01) ==
LOC: EDUNIT# 22:03 → ER 22:06
DX: S23.3XXA Sprain of ligaments of thoracic spine, initial encounter (principal); J45.909 Unspecified asthma, uncomplicated; I10 Essential (primary) hypertension; G40.909 Epilepsy, unspecified, not intractable, without status epilepticus; E11.9 Type 2 diabetes mellitus without complications; F41.9 Anxiety disorder, unspecified; F31.9 Bipolar disorder, unspecified; F20.9 Schizophrenia, unspecified; E03.9 Hypothyroidism, unspecified; Z87.440 Personal history of urinary (tract) infections; Z98.84 Bariatric surgery status; Z90.49 Acquired absence of other specified parts of digestive tract; W18.30XA Fall on same level, unspecified, initial encounter
CPT/HCPCS: 99283

== ENCOUNTER 2017-11-01 13:15 | Emergency (ER) | payer MEDICARE, MEDICAID ==
[~2017-11-01] VITALS: Ht 167.6 cm; Wt 113.4 kg
--- NOTE | 2017-11-01 15:25 | ED GI ---
General Chief Complaint: Rect Problems Stated Complaint: RECTAL PAIN Nursing Triage Note: pt reports rectal pain x 2 days. Pt reports has hx of hemrroids but never pain this bad. Pt reports she fluctuates between constipation and diahrrea. Sepsis Screen: No Definite Risk Source of Information: Patient Exam Limitations: No Limitations History of Present Illness Date Seen by Provider: Nov 01, 2017 Time Seen by Provider: 15:19 Initial Comments To ER with reports of rectal pain mostly with bowel movements. This is been going on for about 2 days. She denies any blood in the toilet. She has a history of hemorrhoids. She states that she had gastric bypass surgery and temporarily had a PEG tube placed. She has had subsequent troubles with constipation. She states that when she has a bowel movement she does have a protrusion from the anus which she believes to be a hemorrhoid. Timing/Duration: 1-2 Days Severity/Quality: Moderate Radiation: No Radiation Activities at Onset: None Allergies and Home Medications Allergies Coded Allergies: levofloxacin (Unverified Allergy, Mild, N/V, 01/05/17) Home Medications Acetaminophen 500 Mg Tablet, 500-1,000 MG PO Q4H PRN for PAIN-MILD, (Reported) Baclofen 10 Mg Tablet, 10 MG PO TID, (Reported) Buspirone HCl 5 Mg Tablet, 5 MG PO TID, (Reported) TAKES ALONG WITH 10MG TABLET FOR TOTAL DOSE OF 15MG Buspirone HCl 10 Mg Tablet, 10 MG PO TID, (Reported) TAKES ALONG WITH 5MG TABLET FOR TOTAL DAILY DOSE OF 15MG Cyclobenzaprine HCl 5 Mg Tablet, 5 MG PO TID Prescribed by: SHALINI POON on 05/07/17 1629 Duloxetine HCl 60 Mg Capsule.dr, 120 MG PO DAILY, (Reported) TAKES 2 (60MG) CAPSULES Hydrocodone Bit/Acetaminophen 1 Each Tablet, 1 TAB PO BID PRN for PAIN-MODERATE, (Reported) Hydrocortisone Acetate 25 Mg Supp.rect, 25 MG RC BID Prescribed by: SHALINI POON on 11/01/17 1529 Ondansetron 8 Mg Tab.rapdis, 8 MG PO Q6H PRN for NAUSEA/VOMITING-1ST LINE Prescribed by: SHALINI POON on 01/05/17 1256 Sulfamethoxazole/Trimethoprim 1 Each Tablet, 1 EACH PO BID Prescribed by: SHALINI POON on 01/05/17 1256 Trazodone HCl 150 Mg Tablet, 300 MG PO HS, (Reported) TAKES 2 (150MG) TABLETS [Bariatric Advantage] , 1 TAB PO TID, (Reported) Patient Home Medication List Home Medication List Reviewed: Yes Review of Systems Constitutional: see HPI EENTM: No Symptoms Reported Respiratory: No Symptoms Reported Cardiovascular: No Symptoms Reported Gastrointestinal: See HPI, Constipated Genitourinary: No Symptoms Reported Musculoskeletal: no symptoms reported Skin: no symptoms reported Psychiatric/Neurological: No Symptoms Reported Endocrine: No Symptoms Reported Past Wyiuyfp-Jrkoof-Qoybgq Hx Patient Social History Alcohol Use: Rarely Uses Recreational Drug Use: No Smoking Status: Never a Smoker 2nd Hand Smoke Exposure: No Recent Foreign Travel: No Contact w/Someone Who Travel: No Recent Infectious Disease Expo: No Recent Hopitalizations: No Physical Abuse: No Sexual Abuse: No Mistreated: No Fear: No Immunizations Up To Date Tetanus Booster (TDap): Less than 5yrs PED Vaccines UTD: No Date of Influenza Vaccine: May 06, 2014 Seasonal Allergies Seasonal Allergies: No Past Medical History Surgeries: Yes (LAP BAND , EAR TUBES, LAP BAND REMOVED, DUODENAL SWITCH, EGD) Abdominal, Appendectomy, Ear Surgery, Gallbladder Respiratory: Yes Asthma Cardiac: No Hypertension Neurological: Yes Headaches /Migraines Reproductive Disorders: Yes (IRREGULAR PERIODS) Female Reproductive Disorders: Menstrual Problems Genitourinary: Yes UTI-Chronic Gastrointestinal: Yes (03/25/14 Biliopancreatic Diversion with Duodenal Switch , hx feeding tube) Musculoskeletal: No Endocrine: No (prior to lap band) Hypothyroidsim, Diabetes, Non-Insulin dep HEENT: No Cancer: No Psychosocial: Yes Bipolar, Schizophrenia, Depression Nursing Suicide Risk Score: 0 Integumentary: No Blood Disorders: No Family Medical History Family history: Arthritis 03 MOTHER Family history: Asthma 03 FATHER Family history: Diabetes mellitus 03 MOTHER HALF SISTER Family history: Glaucoma 03 MOTHER Family history: Hypertension 03 FATHER Family history: Osteoporosis 03 MOTHER Family history: Thyroid disorder 09 SISTER (THYROIDECTOMY) Headache 03 MOTHER 09 SISTER Hearing loss 03 MOTHER History of - respiratory disease 03 FATHER Hypercholesterolemia 03 FATHER No Family History of: Abdominal aortic aneurysm Cristian's disease Alcoholism Aphasia Cancer Cancer of colon Cataract Chest pain Congenital heart disease Congestive heart failure Cystic fibrosis Dementia Dysphagia Family history: Allergy Family history: Alzheimer's disease Family history: Breast disease Family history: Cardiovascular disease Family history: Coronary thrombosis Family history: Gastrointestinal disease Heart disease Hereditary disease History of - anemia History of - disorder History of drug abuse Human immunodeficiency virus (HIV) seropositivity Infertile Kidney disease Malignant neoplasm of lung Myocardial infarction Parkinson's disease Prostate cancer Psychotic disorder Seizure disorder Stroke Tuberculosis Visual impairment Physical Exam Vital Signs Vital Signs - First Documented 11/01/17 14:18 Temp 97.3 Pulse 75 Resp 20 B/P (MAP) 137/91 (106) Pulse Ox 99 Capillary Refill : Less Than 3 Seconds General Appearance: WD/WN HEENT: PERRL/EOMI, normal ENT inspection Neck: non-tender, full range of motion Cardiovascular: regular rate, rhythm Gastrointestinal: normal bowel sounds, non tender, soft Rectal: other (Rectal exam done with female vocational nursing instructor Yanira at the bedside. There is no external hemorrhoid visualized, there is question of a shallow fissure at the anterior midline of the anus.) Extremities: normal range of motion, non-tender Neurologic/Psychiatric: alert, normal mood/affect, oriented x 3 Skin: normal color, warm/dry Progress/Results/Core Measures My Orders Orders - SHALINI POON APRN Lidocaine 2% Viscous 15 Ml (Xylocaine Vi (11/01/17 15:45) Medications Given in ED Current Medications Medications Dose Ordered Sig/Tulio Route Start Time Stop Time Status Last Admin Dose Admin Lidocaine HCl 15 ml ONCE ONCE MM 11/01/17 15:45 11/01/17 15:46 DC 11/01/17 14:40 15 ML Vital Signs/I&O 11/01/17 14:18 Temp 97.3 Pulse 75 Resp 20 B/P (MAP) 137/91 (106) Pulse Ox 99 Blood Pressure Mean: 106 Departure Communication (Admissions) Her description of something protruding from her anus with bowel movements would support a thrombosed internal hemorrhoid as possibility. Impression Primary Impression: Anal pain Disposition: 01 HOME, SELF-CARE Condition: Stable Departure-Patient Inst. Decision time for Depature: 15:23 Referrals: GABINO GARCIA DO (PCP/Family) Primary Care Physician Patient Instructions: Anal Fissure (DC), Hemorrhoids (DC) Add. Discharge Instructions: 1. Apply a topical lidocaine cream as necessary for pain control, call Dr. Recinos or Dr. Del Rosario today to make an appointment to be seen as soon as they can schedule U next week for further evaluation. Return to ER for any intolerable pain. Start taking a Colace stool softener 2 tablets with at least 2 bottles of water daily All discharge instructions reviewed with patient and/ or family. Voiced understanding. Scripts Hydrocortisone Acetate (Anusol-Hc) 25 Mg Supp.rect 25 MG RC BID, #10 SUPP.RECT Prov: SHALINI POON APRN 11/01/17 Copy Copies To 1: ELLIOT DIAZ DO; HALLE RECINOS DO SHALINI POON APRN Nov 01, 2017 15:25
[2017-11-01] MEDS ORDERED: HYDR25SU28 RC (15:29)
[2017-11-01] MEDS ORDERED: LIDOCAINE 2% VISCOUS 15 ML UDC MM ONE (15:45)
[2017-11-01 15:47] VITALS: BP 135/71
== END 2017-11-01 15:47 | disposition home or self-care (01) ==
LOC: EDUNIT# 13:15 → ER 13:20
DX: J45.909 Unspecified asthma, uncomplicated (principal); I10 Essential (primary) hypertension; K62.89 Other specified diseases of anus and rectum; G43.909 Migraine, unspecified, not intractable, without status migrainosus; E03.9 Hypothyroidism, unspecified; E11.9 Type 2 diabetes mellitus without complications; F31.9 Bipolar disorder, unspecified; F20.9 Schizophrenia, unspecified; Z82.49 Family history of ischemic heart disease and other diseases of the circulatory system; Z87.440 Personal history of urinary (tract) infections; Z87.19 Personal history of other diseases of the digestive system; Z98.84 Bariatric surgery status; Z88.1 Allergy status to other antibiotic agents; Z79.52 Long term (current) use of systemic steroids; Z90.49 Acquired absence of other specified parts of digestive tract
CPT/HCPCS: 99282

== ENCOUNTER 2018-01-19 13:28 | Emergency (ER) | payer MEDICARE, MEDICAID ==
[~2018-01-19] VITALS: Ht 167.6 cm; Wt 113.4 kg
[~2018-01-19 13:28] MED LIST changes: +CLON0.5T13; -CLON0.5T3; +HYDR25SU28 RC
[2018-01-19] MEDS ORDERED: HYDROcodone/APAP 5 MG/325 MG (LORTAB) TAB PO ONE (13:45)
--- NOTE | 2018-01-19 13:48 | ED Upper Extremity ---
General Chief Complaint: Upper Extremity Stated Complaint: INJ HAND SWOLLEN Source: patient Exam Limitations: no limitations History of Present Illness Date Seen by Provider: Jan 19, 2018 Time Seen by Provider: 13:45 Initial Comments This 27-year-old white female presents after she sustained an injury to her right hand when she punched the ground last night. She is complaining of pain and swelling over the lateral aspect of the right hand suggestive of a boxer's fracture. She denies other injury. Allergies and Home Medications Allergies Coded Allergies: levofloxacin (Unverified Allergy, Mild, N/V, 01/19/18) Home Medications Acetaminophen 500 Mg Tablet, 500-1,000 MG PO Q4H PRN for PAIN-MILD, (Reported) Baclofen 10 Mg Tablet, 10 MG PO TID, (Reported) Buspirone HCl 5 Mg Tablet, 5 MG PO TID, (Reported) TAKES ALONG WITH 10MG TABLET FOR TOTAL DOSE OF 15MG Buspirone HCl 10 Mg Tablet, 10 MG PO TID, (Reported) TAKES ALONG WITH 5MG TABLET FOR TOTAL DAILY DOSE OF 15MG Cyclobenzaprine HCl 5 Mg Tablet, 5 MG PO TID Prescribed by: SHALINI POON on 05/07/17 1629 Duloxetine HCl 60 Mg Capsule.dr, 120 MG PO DAILY, (Reported) TAKES 2 (60MG) CAPSULES Hydrocodone Bit/Acetaminophen 1 Each Tablet, 1 TAB PO BID PRN for PAIN-MODERATE, (Reported) Hydrocortisone Acetate 25 Mg Supp.rect, 25 MG RC BID Prescribed by: SHALINI POON on 11/01/17 1529 Ondansetron 8 Mg Tab.rapdis, 8 MG PO Q6H PRN for NAUSEA/VOMITING-1ST LINE Prescribed by: SHALINI POON on 01/05/17 1256 Sulfamethoxazole/Trimethoprim 1 Each Tablet, 1 EACH PO BID Prescribed by: SHALINI POON on 01/05/17 1256 Trazodone HCl 150 Mg Tablet, 300 MG PO HS, (Reported) TAKES 2 (150MG) TABLETS [Bariatric Advantage] , 1 TAB PO TID, (Reported) Patient Home Medication List Home Medication List Reviewed: Yes Constitutional: No chills EENTM: No ear pain Respiratory: No dyspnea on exertion Cardiovascular: No chest pain Gastrointestinal: No abdominal pain Genitourinary: no symptoms reported Musculoskeletal: see HPI; No back pain; joint pain Skin: No rash Psychiatric/Neurological: No Symptoms Reported Past Earuxhg-Jwleti-Aryjbk Hx Past Med/Social Hx: Reviewed Nursing Past Med/Soc Hx Patient Social History 2nd Hand Smoke Exposure: No Recent Foreign Travel: No Contact w/Someone Who Travel: No Recent Hopitalizations: No Immunizations Up To Date Tetanus Booster (TDap): Less than 5yrs PED Vaccines UTD: No Date of Influenza Vaccine: May 06, 2014 Seasonal Allergies Seasonal Allergies: No Past Medical History Surgeries: Yes (LAP BAND , EAR TUBES, LAP BAND REMOVED, DUODENAL SWITCH, EGD) Abdominal, Appendectomy, Ear Surgery, Gallbladder Respiratory: Yes Asthma Cardiac: No Hypertension Neurological: Yes Headaches /Migraines Reproductive Disorders: Yes (IRREGULAR PERIODS) Female Reproductive Disorders: Menstrual Problems Genitourinary: Yes UTI-Chronic Gastrointestinal: Yes (03/25/14 Biliopancreatic Diversion with Duodenal Switch , hx feeding tube) Musculoskeletal: No Endocrine: No (prior to lap band) Hypothyroidsim, Diabetes, Non-Insulin dep HEENT: No Cancer: No Psychosocial: Yes Bipolar, Schizophrenia, Depression Integumentary: No Blood Disorders: No Family Medical History Family history: Arthritis 03 MOTHER Family history: Asthma 03 FATHER Family history: Diabetes mellitus 03 MOTHER HALF SISTER Family history: Glaucoma 03 MOTHER Family history: Hypertension 03 FATHER Family history: Osteoporosis 03 MOTHER Family history: Thyroid disorder 09 SISTER (THYROIDECTOMY) Headache 03 MOTHER 09 SISTER Hearing loss 03 MOTHER History of - respiratory disease 03 FATHER Hypercholesterolemia 03 FATHER No Family History of: Abdominal aortic aneurysm [place]'s disease Alcoholism Aphasia Cancer Cancer of colon Cataract Chest pain Congenital heart disease Congestive heart failure Cystic fibrosis Dementia Dysphagia Family history: Allergy Family history: Alzheimer's disease Family history: Breast disease Family history: Cardiovascular disease Family history: Coronary thrombosis Family history: Gastrointestinal disease Heart disease Hereditary disease History of - anemia History of - disorder History of drug abuse Human immunodeficiency virus (HIV) seropositivity Infertile Kidney disease Malignant neoplasm of lung Myocardial infarction Parkinson's disease Prostate cancer Psychotic disorder Seizure disorder Stroke Tuberculosis Visual impairment Physical Exam Vital Signs Vital Signs - First Documented 01/19/18 13:36 Pulse 81 Resp 14 B/P (MAP) 148/79 (102) Pulse Ox 97 Capillary Refill : Height, Weight, BMI Height: 5'6.00" Weight: 250lbs. 0oz. 113.525607np; 39.5 BMI Method:Stated General Appearance: WD/WN, mild distress HEENT: normal ENT inspection Neck: normal inspection Cardiovascular: regular rate, rhythm Respiratory: lungs clear Gastrointestinal: non tender Back: normal inspection Shoulder: normal inspection Elbow/Forearm: normal inspection Wrist: Yes normal inspection Hand: Right, soft tissue tenderness, swelling Neurologic/Psychiatric: no motor/sensory deficits, alert, normal mood/affect Skin: normal color, warm/dry Progress/Results/Core Measures Results/Orders My Orders Orders - CHRISTOPHE ESPITIA MD Hydrocodone/Apap 5/325 Tablet (Lortab 5 (01/19/18 13:45) Hand, Right, 3 Views (01/19/18 13:43) Hand, Right, 3 Views (01/19/18 15:42) Fentanyl Injection (Sublimaze Injection (01/19/18 15:45) Medications Given in ED Current Medications Medications Dose Ordered Sig/Tulio Route Start Time Stop Time Status Last Admin Dose Admin Acetaminophen/ Hydrocodone Bitart 2 tab ONCE ONCE PO 01/19/18 13:45 01/19/18 13:46 DC 01/19/18 13:50 2 TAB Fentanyl Citrate 50 mcg ONCE ONCE IVP 01/19/18 15:45 01/19/18 15:46 DC 01/19/18 15:47 50 MCG Vital Signs/I&O 01/19/18 13:36 Pulse 81 Resp 14 B/P (MAP) 148/79 (102) Pulse Ox 97 Progress Progress Note : Time: 16:26 Progress Note The patient's injury was treated acutely on arrival with hydrocodone. X-ray demonstrated a mildly angulated fracture of the little finger metacarpal head. After discussion with patient and her of treatment options the patient agreed to an attempted reduction. A short arm fiberglass splint was applied with 4 inch OCL. The fracture was reduced and splint was applied. Post reduction film demonstrated satisfactory alignment of the fifth metacarpal fracture of the right hand. Patient received 50 g of fentanyl IM prior to discharge. Departure Impression Primary Impression: Fracture of metacarpal of right hand, closed Qualified Codes: S62.366A - Nondisplaced fracture of neck of fifth metacarpal bone, right hand, initial encounter for closed fracture Disposition: 01 HOME, SELF-CARE Condition: Improved Departure-Patient Inst. Decision time for Depature: 16:29 Referrals: GABINO GARCIA DO (PCP/Family) Primary Care Physician MADISON,ANDREW F DO Patient Instructions: Hand Fracture (DC) Add. Discharge Instructions: Follow-up with Dr. Michelle this week. Call Dr. Michelle's office in the morning. Vicodin for pain. Ice and elevate hand. Return of any problems or questions. Discharge instructions reviewed with patient and/or family. Voiced understanding. CHRISTOPHE ESPITIA MD Jan 19, 2018 13:48
--- NOTE | 2018-01-19 14:31 | Diagnostic Imaging Report ---
INDICATION: Injury to right hand. Time of exam 2:02 PM 3 views of the right hand demonstrate an acute fracture of the distal fifth metacarpal. There is mild volar angulation of the distal fracture fragment. No significant displacement is seen. Remaining metacarpals and phalanges are intact. IMPRESSION: Mildly angulated distal fifth metacarpal fracture. Dictated by: Dictated on workstation # [id number]
[2018-01-19] MEDS ORDERED: fentaNYL INJECTION 100 MCG/2 ML AMP IVP ONE (15:45)
--- NOTE | 2018-01-19 16:46 | Diagnostic Imaging Report ---
INDICATION: Post reduction. TECHNIQUE: Three views of the right hand, 4:20 p.m. CORRELATION STUDY: 01/19/2018. FINDINGS: Splint material has been placed along the ulnar aspect of the hand. A fracture involving the distal fifth metacarpal shaft is again demonstrated. Alignment appears to be nearly anatomic apart from mild unchanged volar angulation. No new bony abnormality. IMPRESSION: Splint material has been placed transfixing the mildly angulated distal fifth metacarpal fracture. Dictated by: Dictated on workstation # [id number]
[2018-01-19 19:14] VITALS: BP 131/81
== END 2018-01-19 16:47 | disposition home or self-care (01) ==
LOC: EDUNIT# 13:28 → ER 13:30
DX: S62.366A Nondisplaced fracture of neck of fifth metacarpal bone, right hand, initial encounter for closed fracture (principal); J45.909 Unspecified asthma, uncomplicated; I10 Essential (primary) hypertension; G43.909 Migraine, unspecified, not intractable, without status migrainosus; E03.9 Hypothyroidism, unspecified; E11.9 Type 2 diabetes mellitus without complications; F31.9 Bipolar disorder, unspecified; F20.9 Schizophrenia, unspecified; Z88.1 Allergy status to other antibiotic agents; Z90.49 Acquired absence of other specified parts of digestive tract; Z87.19 Personal history of other diseases of the digestive system; W22.09XA Striking against other stationary object, initial encounter
CPT/HCPCS: 29125; 73130; 96374

== ENCOUNTER 2018-01-21 10:20 | Emergency (ER) | payer MEDICARE, MEDICAID ==
[~2018-01-21] VITALS: Ht 167.6 cm; Wt 113.4 kg
[2018-01-21] MEDS ORDERED: HYDROcodone/APAP 7.5 MG/325 MG (LORTAB, LORCET PLUS) TABLET PO ONE (11:15)
--- NOTE | 2018-01-21 11:23 | ED Upper Extremity ---
General Chief Complaint: Upper Extremity Stated Complaint: RT ARM STILL HURTING Nursing Triage Note: pt presents to ed with complaints of r arm pain increasing since last night. pt reports injury to r arm/hand on saturday. pt was seen in ed and placed in temporary splint. pt has appt with coty tomorrow at 2:30. Pt reports she ran out of her Hydrocodone this morning. Nursing Sepsis Screen: No Definite Risk Source: patient, family Exam Limitations: no limitations History of Present Illness Date Seen by Provider: Jan 21, 2018 Time Seen by Provider: 11:17 Initial Comments Patient is a 27-year-old female who presents to emergency room with complaints of increasing right hand/wrist pain that started last night. She was seen on in the emergency room for a boxer's fracture of the right hand, she states that last night she felt a popping sensation in the wrist and the pain has become worse ever since. She also reports that she took her last hydrocodone 11/07/24 this morning at 0600. Onset: yesterday Pain/Injury Location: right wrist Method of Injury: direct blow Modifying Factors: Improves With Immobilization; Worse With Movement; Improves With Pain Medication Allergies and Home Medications Allergies Coded Allergies: levofloxacin (Unverified Allergy, Mild, N/V, 01/19/18) Home Medications Acetaminophen 500 Mg Tablet, 500-1,000 MG PO Q4H PRN for PAIN-MILD, (Reported) Baclofen 10 Mg Tablet, 10 MG PO TID, (Reported) Buspirone HCl 5 Mg Tablet, 5 MG PO TID, (Reported) TAKES ALONG WITH 10MG TABLET FOR TOTAL DOSE OF 15MG Buspirone HCl 10 Mg Tablet, 10 MG PO TID, (Reported) TAKES ALONG WITH 5MG TABLET FOR TOTAL DAILY DOSE OF 15MG Cyclobenzaprine HCl 5 Mg Tablet, 5 MG PO TID Prescribed by: SHALINI POON on 05/07/17 1629 Duloxetine HCl 60 Mg Capsule.dr, 120 MG PO DAILY, (Reported) TAKES 2 (60MG) CAPSULES Hydrocodone Bit/Acetaminophen 1 Each Tablet, 1 TAB PO BID PRN for PAIN-MODERATE, (Reported) Hydrocodone Bit/Acetaminophen 1 Tab Tab, 1 EACH PO Q4H PRN for PAIN Prescribed by: SILVER CONTI on 01/21/18 1149 Hydrocortisone Acetate 25 Mg Supp.rect, 25 MG RC BID Prescribed by: SHALINI POON on 11/01/17 1529 Ondansetron 8 Mg Tab.rapdis, 8 MG PO Q6H PRN for NAUSEA/VOMITING-1ST LINE Prescribed by: SHALINI POON on 01/05/17 1256 Sulfamethoxazole/Trimethoprim 1 Each Tablet, 1 EACH PO BID Prescribed by: SHALINI POON on 01/05/17 1256 Trazodone HCl 150 Mg Tablet, 300 MG PO HS, (Reported) TAKES 2 (150MG) TABLETS [Bariatric Advantage] , 1 TAB PO TID, (Reported) Patient Home Medication List Home Medication List Reviewed: Yes Constitutional: see HPI; No chills, No diaphoresis EENTM: see HPI; No no symptoms reported, No ear discharge, No hearing loss, No ear pain, No blurred vision Respiratory: see HPI; No cough, No dyspnea on exertion Cardiovascular: see HPI; No chest pain, No edema Gastrointestinal: see HPI; No abdominal pain, No constipation Genitourinary: see HPI; No decreased output, No discharge, No dysuria, No frequency Musculoskeletal: see HPI, joint pain (right wrist) Skin: see HPI, change in color Psychiatric/Neurological: See HPI; Denies Anxiety, Denies Depressed, Denies Emotional Problems All Other Systems Reviewed Negative Unless Noted: Yes Past Yotkesd-Vnnhor-Ckyqnc Hx Past Med/Social Hx: Reviewed Nursing Past Med/Soc Hx Patient Social History Alcohol Use: Occasionally Uses Recreational Drug Use: No Drug of Choice: THC Smoking Status: Never a Smoker 2nd Hand Smoke Exposure: No Recent Foreign Travel: No Contact w/Someone Who Travel: No Recent Infectious Disease Expo: No Recent Hopitalizations: No Physical Abuse: No Sexual Abuse: No Mistreated: No Fear: No Immunizations Up To Date Tetanus Booster (TDap): Less than 5yrs PED Vaccines UTD: No Date of Influenza Vaccine: May 06, 2014 Seasonal Allergies Seasonal Allergies: No Past Medical History Surgeries: Yes (LAP BAND 2006/JANUARY, EAR TUBES, LAP BAND REMOVED, DUODENAL SWITCH, EGD) Abdominal, Appendectomy, Ear Surgery, Gallbladder, Tonsillectomy Respiratory: Yes Asthma Cardiac: No (hx of hypertension-no meds since loosing weight) Hypertension Neurological: Yes Headaches /Migraines Reproductive Disorders: Yes (IRREGULAR PERIODS) Female Reproductive Disorders: Menstrual Problems Genitourinary: Yes UTI-Chronic Gastrointestinal: Yes (03/25/14 Biliopancreatic Diversion with Duodenal Switch , hx feeding tube) Musculoskeletal: No Endocrine: No (prior to lap band) Hypothyroidsim, Diabetes, Non-Insulin dep HEENT: No Cancer: No Psychosocial: Yes Bipolar, Schizophrenia, Depression Nursing Suicide Risk Score: 0 Integumentary: No Blood Disorders: No Family Medical History Reviewed Nursing Family Hx Family history: Arthritis 03 MOTHER Family history: Asthma 03 FATHER Family history: Diabetes mellitus 03 MOTHER HALF SISTER Family history: Glaucoma 03 MOTHER Family history: Hypertension 03 FATHER Family history: Osteoporosis 03 MOTHER Family history: Thyroid disorder 09 SISTER (THYROIDECTOMY) Headache 03 MOTHER 09 SISTER Hearing loss 03 MOTHER History of - respiratory disease 03 FATHER Hypercholesterolemia 03 FATHER No Family History of: Abdominal aortic aneurysm Cristian's disease Alcoholism Aphasia Cancer Cancer of colon Cataract Chest pain Congenital heart disease Congestive heart failure Cystic fibrosis Dementia Dysphagia Family history: Allergy Family history: Alzheimer's disease Family history: Breast disease Family history: Cardiovascular disease Family history: Coronary thrombosis Family history: Gastrointestinal disease Heart disease Hereditary disease History of - anemia History of - disorder History of drug abuse Human immunodeficiency virus (HIV) seropositivity Infertile Kidney disease Malignant neoplasm of lung Myocardial infarction Parkinson's disease Prostate cancer Psychotic disorder Seizure disorder Stroke Tuberculosis Visual impairment Physical Exam Vital Signs Vital Signs - First Documented 01/21/18 10:36 Temp 96.1 Pulse 75 Resp 20 B/P (MAP) 126/59 (81) Pulse Ox 96 Capillary Refill : Less Than 3 Seconds Height, Weight, BMI Height: 5'6.00" Weight: 250lbs. 0oz. 113.545655yn; 39.5 BMI Method:Stated General Appearance: WD/WN, no apparent distress HEENT: PERRL/EOMI, normal ENT inspection, TMs normal Neck: non-tender, full range of motion, supple Cardiovascular: regular rate, rhythm, no edema, no gallop, no JVD, no murmur Respiratory: chest non-tender, lungs clear, normal breath sounds, no respiratory distress, no accessory muscle use Gastrointestinal: normal bowel sounds, non tender, soft, no organomegaly, no pulsatile mass Back: normal inspection, no CVA tenderness, no vertebral tenderness Shoulder: normal inspection, non-tender, no evidence of injury, normal ROM Elbow/Forearm: normal inspection, non-tender, no evidence of injury, normal ROM , Bilateral Wrist: Yes ecchymosis (to the right wrist), Yes pain (right wrist), Yes soft tissue tenderness (right wrist) Hand: Right, ecchymosis, soft tissue tenderness Neurologic/Tendon: normal sensation, normal motor functions, normal tendon functions, responds to pain Neurologic/Psychiatric: alert, normal mood/affect, oriented x 3 Skin: normal color, warm/dry Lymphatic: no adenopathy Progress/Results/Core Measures Results/Orders My Orders Orders - SILVER CONTI Hydrocodone/Apap 7.5/325 Tab (Lortab 7. (01/21/18 11:15) Wrist, Right, 3 Views Or More (01/21/18 11:14) Vital Signs/I&O 01/21/18 10:36 Temp 96.1 Pulse 75 Resp 20 B/P (MAP) 126/59 (81) Pulse Ox 96 Blood Pressure Mean: 81 Departure Impression Primary Impression: Fracture of hand Disposition: 01 HOME, SELF-CARE Condition: Stable/Unchanged Departure-Patient Inst. Decision time for Depature: 11:47 Referrals: GABINO GARCIA DO (PCP/Family) Primary Care Physician ANDREW MICHELLE DO Patient Instructions: Hand Fracture (DC) Add. Discharge Instructions: Wear the splint at all times. Keep your appointment with Dr. Michelle tomorrow morning. Take medications as directed. Return back to emergency room for any increased pain, numbness, swelling, or any other concerns as needed. All discharge instructions reviewed with patient and/or family. Voiced understanding. Scripts Hydrocodone Bit/Acetaminophen (Hydrocodone/Acetaminophen 5/325mg Tablet) 1 Tab Tab 1 EACH PO Q4H PRN for PAIN, #10 TAB Prov: SILVER CONTI 01/21/18 SILVER CONTI Jan 21, 2018 11:23
[2018-01-21] MEDS ORDERED: ACHD5005 PO (11:49)
--- NOTE | 2018-01-21 12:13 | Diagnostic Imaging Report ---
INDICATION: Fall. Pain. COMPARISON: 01/19/2018. FINDINGS: Three views of the right wrist are obtained. There is a comminuted mild angulated fracture of the distal fifth metacarpal which appears fairly similar in alignment to the prior study with slight increase in callus. The cast seen on the prior exam has been removed. No new discrete fracture is seen. IMPRESSION: Fracture of the distal fifth metacarpal is again demonstrated. No new or acute abnormality is seen when compared to the prior exam. Dictated by: Dictated on workstation # [id number]
[2018-01-21 12:16] VITALS: BP 132/78
== END 2018-01-21 12:16 | disposition home or self-care (01) ==
LOC: EDUNIT# 10:20 → ER 10:21
DX: S62.396A Other fracture of fifth metacarpal bone, right hand, initial encounter for closed fracture (principal); J45.909 Unspecified asthma, uncomplicated; I10 Essential (primary) hypertension; G43.909 Migraine, unspecified, not intractable, without status migrainosus; E03.9 Hypothyroidism, unspecified; E11.9 Type 2 diabetes mellitus without complications; F31.9 Bipolar disorder, unspecified; F20.9 Schizophrenia, unspecified; Z87.440 Personal history of urinary (tract) infections; Z90.49 Acquired absence of other specified parts of digestive tract; Z90.89 Acquired absence of other organs; Z88.1 Allergy status to other antibiotic agents; W22.8XXA Striking against or struck by other objects, initial encounter
CPT/HCPCS: 73110

== ENCOUNTER 2018-06-15 01:51 | Emergency (ER) | payer MEDICARE, MEDICAID ==
[~2018-06-15] VITALS: Ht 167.6 cm; Wt 112.5 kg
--- NOTE | 2018-06-15 02:48 | ED Cough/URI ---
General Chief Complaint: Cough/Cold/Flu Symptoms Stated Complaint: SINSUS;CHEST CONGESTION;COUGH Nursing Triage Note: PT AMB TO ROOM #5 W/O DIFFICULTY. A&OX4. C/O COUGH, CONGESTION, BODY ACHES, NAUSEA, AND DIARRHEA FOR APPROX 3 DAYS. PT REPORTS TO BE TREATING SYMTPOMS WITH MUCINEX WITH NO RELIEF. DRY/HACKING COUGH NOTED. DENIES SPUTUM PRODUCTION WITH COUGH. Source: patient, family Exam Limitations: no limitations History of Present Illness Date Seen by Provider: Jun 15, 2018 Time Seen by Provider: 02:28 Initial Comments Patient presents to ER by private conveyance with her significant other chief complaint for 3 days now she's had cough nonproductive and upper respiratory tract congestion. She denies any fevers chills. She does have a history of asthma and has tried her albuterol inhaler but said it did not help. She went to the urgent care and was given some Tessalon Perles which she said also did not help. She has to work today. She has a history of tonsils and adenoids removed as well as ear tubes when she was much younger. Allergies and Home Medications Allergies Coded Allergies: levofloxacin (Unverified Allergy, Mild, N/V, 01/19/18) Home Medications Acetaminophen 500 Mg Tablet, 500-1,000 MG PO Q4H PRN for PAIN-MILD, (Reported) Baclofen 10 Mg Tablet, 10 MG PO TID, (Reported) Buspirone HCl 5 Mg Tablet, 5 MG PO TID, (Reported) TAKES ALONG WITH 10MG TABLET FOR TOTAL DOSE OF 15MG Buspirone HCl 10 Mg Tablet, 10 MG PO TID, (Reported) TAKES ALONG WITH 5MG TABLET FOR TOTAL DAILY DOSE OF 15MG Cyclobenzaprine HCl 5 Mg Tablet, 5 MG PO TID Prescribed by: SHALINI POON on 05/07/17 1629 Duloxetine HCl 60 Mg Capsule.dr, 120 MG PO DAILY, (Reported) TAKES 2 (60MG) CAPSULES Hydrocodone Bit/Acetaminophen 1 Each Tablet, 1 TAB PO BID PRN for PAIN-MODERATE, (Reported) Hydrocodone Bit/Acetaminophen 1 Tab Tab, 1 EACH PO Q4H PRN for PAIN Prescribed by: SILVER CONTI on 01/21/18 1149 Hydrocortisone Acetate 25 Mg Supp.rect, 25 MG RC BID Prescribed by: SHALINI POON on 11/01/17 1529 Ondansetron 8 Mg Tab.rapdis, 8 MG PO Q6H PRN for NAUSEA/VOMITING-1ST LINE Prescribed by: SHALINI POON on 01/05/17 1256 Sulfamethoxazole/Trimethoprim 1 Each Tablet, 1 EACH PO BID Prescribed by: SHALINI POON on 01/05/17 1256 Trazodone HCl 150 Mg Tablet, 300 MG PO HS, (Reported) TAKES 2 (150MG) TABLETS [Bariatric Advantage] , 1 TAB PO TID, (Reported) Patient Home Medication List Home Medication List Reviewed: Yes Review of Systems Review of Systems Constitutional: No chills, No diaphoresis, No fever EENTM: No ear discharge, No hearing loss Respiratory: cough; No phlegm, No short of breath Cardiovascular: No chest pain, No Hx of Intervention, No palpitations Gastrointestinal: No abdominal pain, No constipation, No nausea Genitourinary: No discharge, No dysuria Past Fbkpktu-Nvbrav-Dbsmhd Hx Patient Social History Alcohol Use: Occasionally Uses Recreational Drug Use: No Drug of Choice: THC Smoking Status: Never a Smoker 2nd Hand Smoke Exposure: No Recent Foreign Travel: No Contact w/Someone Who Travel: No Recent Infectious Disease Expo: No Recent Hopitalizations: No Immunizations Up To Date Tetanus Booster (TDap): Less than 5yrs PED Vaccines UTD: No Date of Influenza Vaccine: May 06, 2014 Seasonal Allergies Seasonal Allergies: No Past Medical History Surgeries: Yes (LAP BAND 2006/JANUARY, EAR TUBES, LAP BAND REMOVED, DUODENAL SWITCH, EGD) Abdominal, Appendectomy, Ear Surgery, Gallbladder, Tonsillectomy Respiratory: Yes Asthma Cardiac: No (hx of hypertension-no meds since loosing weight) Hypertension Neurological: Yes Headaches /Migraines Reproductive Disorders: Yes (IRREGULAR PERIODS) Female Reproductive Disorders: Menstrual Problems Genitourinary: Yes UTI-Chronic Gastrointestinal: Yes (03/25/14 Biliopancreatic Diversion with Duodenal Switch , hx feeding tube) Musculoskeletal: No Endocrine: No (prior to lap band) Hypothyroidsim, Diabetes, Non-Insulin dep HEENT: No Cancer: No Psychosocial: Yes Bipolar, Schizophrenia, Depression Integumentary: No Blood Disorders: No Family Medical History Family history: Arthritis 03 MOTHER Family history: Asthma 03 FATHER Family history: Diabetes mellitus 03 MOTHER HALF SISTER Family history: Glaucoma 03 MOTHER Family history: Hypertension 03 FATHER Family history: Osteoporosis 03 MOTHER Family history: Thyroid disorder 09 SISTER (THYROIDECTOMY) Headache 03 MOTHER 09 SISTER Hearing loss 03 MOTHER History of - respiratory disease 03 FATHER Hypercholesterolemia 03 FATHER No Family History of: Abdominal aortic aneurysm Porter's disease Alcoholism Aphasia Cancer Cancer of colon Cataract Chest pain Congenital heart disease Congestive heart failure Cystic fibrosis Dementia Dysphagia Family history: Allergy Family history: Alzheimer's disease Family history: Breast disease Family history: Cardiovascular disease Family history: Coronary thrombosis Family history: Gastrointestinal disease Heart disease Hereditary disease History of - anemia History of - disorder History of drug abuse Human immunodeficiency virus (HIV) seropositivity Infertile Kidney disease Malignant neoplasm of lung Myocardial infarction Parkinson's disease Prostate cancer Psychotic disorder Seizure disorder Stroke Tuberculosis Visual impairment Physical Exam Vital Signs - First Documented 06/15/18 01:58 Temp 98.1 Pulse 82 Resp 20 B/P (MAP) 118/73 (88) Pulse Ox 98 O2 Delivery Room Air Capillary Refill : Less Than 3 Seconds Height: 5'6.00" Weight: 248lbs. 0oz. 112.659690to; 39.5 BMI Method:Stated General Appearance: WD/WN, no apparent distress Eyes: Bilateral Eye Normal Inspection, Bilateral Eye PERRL, Bilateral Eye EOMI HEENT: PERRL/EOMI, normal ENT inspection, TMs normal, pharynx normal, other ( bilateral TM otosclerosis without loss of landmarks, erythema, injection or exudate) Neck: non-tender, full range of motion, supple, normal inspection Respiratory: chest non-tender, lungs clear, normal breath sounds, no respiratory distress, no accessory muscle use Cardiovascular: normal peripheral pulses, regular rate, rhythm Neurologic/Psychiatric: alert, oriented x 3 Progress/Results/Core Measures Suspected Sepsis Recent Fever Within 48 Hours: No Infection Criteria Present: Suspected New Infection New/Unexplained Altered Menta: No Sepsis Screen: No Definite Risk SIRS Temperature:98.1 Pulse: 82 Respiratory Rate: 20 Blood Pressure 118 /73 Mean: 88 Results/Orders Lab Results Laboratory Tests Test 06/15/18 02:24 Range/Units Group A Streptococcus Screen NEGATIVE NEGATIVE My Orders Orders - RICARDO PHAN Rapid Strep A Screen (06/15/18 02:23) Vital Signs/I&O 06/15/18 01:58 Temp 98.1 Pulse 82 Resp 20 B/P (MAP) 118/73 (88) Pulse Ox 98 O2 Delivery Room Air Capillary Refill : Less Than 3 Seconds Blood Pressure Mean: 88 Departure Impression Primary Impression: Bronchitis Additional Impression: Cough Disposition: 01 HOME, SELF-CARE Condition: Stable Departure-Patient Inst. Decision time for Depature: 02:46 Referrals: PATRICE DURÁN APRN (PCP) Primary Care Physician [facility] (Family) Primary Care Physician Patient Instructions: Acute Bronchitis, Adult (DC) Add. Discharge Instructions: Humidifiers, vapor rubs such as Vicks as well as drink plenty fluids. 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 Tylenol and Motrin for body aches or fever. Follow-up if her symptoms have not improved by Saturday or of this week. All discharge instructions reviewed with patient and/or family. Voiced understanding. Scripts Codeine Phosphate/Guaifenesin (Guaifen-Codeine 200-20 mg/10Ml) 10 Ml Liquid 10 ML PO Q6H PRN for COUGH, #200 ML 0 Refills Prov: RICARDO PHAN 06/15/18 Work/School Note: Work Release Form Date Seen in the Emergency Department: Jun 15, 2018 Return to Work: Jun 16, 2018 Restrictions: No Restrictions RICARDO PHAN Jun 15, 2018 02:48
[2018-06-15] MEDS ORDERED: CODE10LI PO (02:50)
[2018-06-15 02:56] VITALS: BP 118/73
== END 2018-06-15 02:56 | disposition home or self-care (01) ==
LOC: EDUNIT# 01:51 → ER 01:53
DX: J45.909 Unspecified asthma, uncomplicated (principal); I10 Essential (primary) hypertension; G43.909 Migraine, unspecified, not intractable, without status migrainosus; E11.9 Type 2 diabetes mellitus without complications; E03.9 Hypothyroidism, unspecified; F31.9 Bipolar disorder, unspecified; F20.9 Schizophrenia, unspecified; F32.9 Major depressive disorder, single episode, unspecified; Z82.49 Family history of ischemic heart disease and other diseases of the circulatory system; Z87.440 Personal history of urinary (tract) infections; Z98.84 Bariatric surgery status; Z98.890 Other specified postprocedural states; Z90.49 Acquired absence of other specified parts of digestive tract; Z90.89 Acquired absence of other organs; Z79.51 Long term (current) use of inhaled steroids; Z88.8 Allergy status to other drugs, medicaments and biological substances
CPT/HCPCS: 87430; 99284

== ENCOUNTER 2018-07-02 17:19 | Emergency (ER) | payer MEDICARE, MEDICAID ==
[~2018-07-02 17:19] MED LIST changes: +CODE10LI PO
== END 2018-07-02 17:50 | disposition left against medical advice (07) ==
LOC: EDUNIT# 17:19 → ER 17:20
DX: S31.159A Open bite of abdominal wall, unspecified quadrant without penetration into peritoneal cavity, initial encounter (principal); R11.0 Nausea; W57.XXXA Bitten or stung by nonvenomous insect and other nonvenomous arthropods, initial encounter

== ENCOUNTER 2018-07-04 01:50 | Emergency (ER) | payer MEDICARE, MEDICAID ==
[~2018-07-04] VITALS: Ht 167.6 cm; Wt 110.7 kg
[2018-07-04] MEDS ORDERED: ALBU18HF2 (02:18)
[2018-07-04] MEDS ORDERED: SERT50TA9 (02:18)
[2018-07-04] MEDS ORDERED: cefTRIAXone 1,000 MG/2.86 ml vial (IM ONLY) IM STA (02:26)
[2018-07-04] MEDS ORDERED: LIDOCAINE 1% INJ 20 ML 20 ML VIAL INJ ONE ×2 (02:30→03:30)
[2018-07-04] MEDS ORDERED: cefTRIAXone 1 GM/10 ML for IV (ROCEPHIN) ONE (02:32)
--- NOTE | 2018-07-04 02:33 | ED Integumentary General ---
General Chief Complaint: Skin/Wound Problems Stated Complaint: RT SIDE ABCESS Nursing Triage Note: right lower abdominal abcess Source: patient, spouse Exam Limitations: no limitations History of Present Illness Date Seen by Provider: Jul 04, 2018 Time Seen by Provider: 02:21 Initial Comments Patient presents to ER by private conveyance with chief complaint that 3 days ago she had an abscess lanced on her right anterior abdomen at [place] repacked it put her on Bactrim DS twice a day and she been taking that antibiotic but now she's having more redness around the base of the abscess and a new abscess is informed about 5 cm superior to the old abscess. She's not having any fevers chills nausea vomiting or systemic symptoms. Allergies and Home Medications Allergies Coded Allergies: levofloxacin (Unverified Allergy, Mild, N/V, 01/19/18) Home Medications Baclofen 10 Mg Tablet, 10 MG PO TID, (Reported) Patient Home Medication List Home Medication List Reviewed: Yes Review of Systems Review of Systems Constitutional: No chills, No diaphoresis EENTM: No ear discharge, No ear pain Respiratory: No cough, No short of breath Cardiovascular: No chest pain, No edema Gastrointestinal: No abdominal pain, No constipation, No diarrhea Genitourinary: No discharge, No dysuria Past Ujqfsda-Rfwucg-Tyxvih Hx Patient Social History Alcohol Use: Occasionally Uses Recreational Drug Use: Yes Drug of Choice: cannibus Smoking Status: Never a Smoker 2nd Hand Smoke Exposure: No Recent Foreign Travel: No Contact w/Someone Who Travel: No Recent Infectious Disease Expo: No Recent Hopitalizations: No Immunizations Up To Date Tetanus Booster (TDap): Less than 5yrs PED Vaccines UTD: No Date of Influenza Vaccine: May 06, 2014 Seasonal Allergies Seasonal Allergies: No Past Medical History Surgeries: Yes (LAP BAND , EAR TUBES, LAP BAND REMOVED, DUODENAL SWITCH, EGD) Abdominal, Appendectomy, Ear Surgery, Gallbladder, Tonsillectomy Respiratory: Yes Asthma Cardiac: No Hypertension Neurological: Yes Headaches /Migraines : No Reproductive Disorders: Yes (IRREGULAR PERIODS) Female Reproductive Disorders: Menstrual Problems Genitourinary: Yes UTI-Chronic Gastrointestinal: Yes (03/25/14 Biliopancreatic Diversion with Duodenal Switch , hx feeding tube) Musculoskeletal: No Endocrine: No Hypothyroidsim, Diabetes, Non-Insulin dep HEENT: No Cancer: No Psychosocial: Yes Bipolar, Schizophrenia, Depression Integumentary: No Blood Disorders: No Family Medical History Family history: Arthritis 03 MOTHER Family history: Asthma 03 FATHER Family history: Diabetes mellitus 03 MOTHER HALF SISTER Family history: Glaucoma 03 MOTHER Family history: Hypertension 03 FATHER Family history: Osteoporosis 03 MOTHER Family history: Thyroid disorder 09 SISTER (THYROIDECTOMY) Headache 03 MOTHER 09 SISTER Hearing loss 03 MOTHER History of - respiratory disease 03 FATHER Hypercholesterolemia 03 FATHER No Family History of: Abdominal aortic aneurysm [place]ning[place]'s disease Alcoholism Aphasia Cancer Cancer of colon Cataract Chest pain Congenital heart disease Congestive heart failure Cystic fibrosis Dementia Dysphagia Family history: Allergy Family history: Alzheimer's disease Family history: Breast disease Family history: Cardiovascular disease Family history: Coronary thrombosis Family history: Gastrointestinal disease Heart disease Hereditary disease History of - anemia History of - disorder History of drug abuse Human immunodeficiency virus (HIV) seropositivity Infertile Kidney disease Malignant neoplasm of lung Myocardial infarction Parkinson's disease Prostate cancer Psychotic disorder Seizure disorder Stroke Tuberculosis Visual impairment Physical Exam Vital Signs Vital Signs - First Documented 07/04/18 02:05 Temp 98.1 Pulse 62 Resp 16 B/P (MAP) 144/88 (106) Pulse Ox 99 O2 Delivery Room Air Capillary Refill : Less Than 3 Seconds General Appearance: WD/WN, no apparent distress Cardiovascular: normal peripheral pulses, regular rate, rhythm Respiratory: no respiratory distress, no accessory muscle use Gastrointestinal: normal bowel sounds, non tender, soft Neurologic/Psychiatric: alert, normal mood/affect, oriented x 3 Skin: other (faint erythematous base around the site of a recent abscess I&D packed with 1/8 inch iodoform. 5 cm superior to this site is another small 2 cm base of erythema with about a 5 mm induration and white pointing consistent with early abscess.) Procedures/Interventions I&D : Blade Size: 11 Progress the wound was cleansed with alcohol thoroughly and then infiltrated with 1-1/2 cc of 1% lidocaine without epinephrine. When the skin was ascertained to be numb we used an 11 blade scapula make a half centimeter by half centimeter cross bautista incision over the pointing area of the upper abscess. Approximately 2 -3 cc of purulent drainage was expressed easily. The wound was then thoroughly flushed with 50 cc of sterile saline. The previous wound was unpacked and had a good granulation base without any significant purulence so was flushed thoroughly using 50 cc of normal saline. The patient tolerated the procedure well. We will put light gauze dressings over the wound and have her follow-up primary care. Progress/Results/Core Measures Results/Orders My Orders Orders - RICARDO PHAN Urine Bedside (07/04/18 02:26) Lidocaine 1% Inj 20 Ml (Xylocaine 1% Inj (07/04/18 02:30) Ceftriaxone For Im Use (Rocephin For Im (07/04/18 02:26) Ceftriaxone For Iv Use (Rocephin For I (07/04/18 02:32) Lidocaine 1% Inj 20 Ml (Xylocaine 1% Inj (07/04/18 03:30) Medications Given in ED Current Medications Medications Dose Ordered Sig/Tulio Route Start Time Stop Time Status Last Admin Dose Admin Ceftriaxone Sodium 1,000 mg STK-MED ONCE .ROUTE 07/04/18 02:32 07/04/18 02:35 DC 07/04/18 02:52 1,000 MG Lidocaine HCl 20 ml ONCE ONCE INJ 07/04/18 02:30 07/04/18 02:31 DC 07/04/18 02:51 2.1 ML Lidocaine HCl 20 ml ONCE ONCE INJ 07/04/18 03:30 07/04/18 03:31 DC 07/04/18 03:34 20 ML Vital Signs/I&O 07/04/18 02:05 Temp 98.1 Pulse 62 Resp 16 B/P (MAP) 144/88 (106) Pulse Ox 99 O2 Delivery Room Air Blood Pressure Mean: 106 Progress Progress Note : Time: 02:33 Progress Note Plan to I&D the second abscess, obtain culture and double her Bactrim up. We'll have her discontinue packing the first abscess. Rocephin 1 g IM. Departure Impression Primary Impression: Abscess Disposition: 01 HOME, SELF-CARE Condition: Stable Departure-Patient Inst. Decision time for Depature: 03:39 Referrals: [facility] (PCP) Primary Care Physician PATRICE DURÁN APRN (Family) Primary Care Physician Patient Instructions: Abscess Incision and Drainage (DC) Add. Discharge Instructions: Keep the wound clean with regular soap and water. Allow them to drain and slowly heal from the inside out. Double up on your antibiotics 2 capsules of Bactrim twice a day with food. Follow-up with primary care if your symptoms are not improving. Expect improvement in 3-4 days. All discharge instructions reviewed with patient and/or family. Voiced understanding. Scripts Sulfamethoxazole/Trimethoprim (Bactrim Ds Tablet) 1 Each Tablet 2 EACH PO BID for 7 Days, #14 TAB 0 Refills Prov: RICARDO PHAN 07/04/18 RICARDO PHAN Jul 04, 2018 02:33
[2018-07-04] MEDS ORDERED: SULF1TAB35 PO (03:41)
[2018-07-04 03:46] VITALS: BP 136/84
== END 2018-07-04 03:46 | disposition home or self-care (01) ==
LOC: EDUNIT# 01:50 → ER 01:52
DX: L02.211 Cutaneous abscess of abdominal wall (principal); J45.909 Unspecified asthma, uncomplicated; I10 Essential (primary) hypertension; E03.9 Hypothyroidism, unspecified; E11.9 Type 2 diabetes mellitus without complications; F41.9 Anxiety disorder, unspecified; F31.9 Bipolar disorder, unspecified; G43.909 Migraine, unspecified, not intractable, without status migrainosus; Z87.440 Personal history of urinary (tract) infections; Z88.8 Allergy status to other drugs, medicaments and biological substances; Z82.49 Family history of ischemic heart disease and other diseases of the circulatory system; Z77.22 Contact with and (suspected) exposure to environmental tobacco smoke (acute) (chronic); Z98.890 Other specified postprocedural states; Z90.49 Acquired absence of other specified parts of digestive tract; Z90.89 Acquired absence of other organs; Z98.84 Bariatric surgery status
CPT/HCPCS: 10060; 84703

== ENCOUNTER 2018-07-31 08:42 | Emergency (ER) | payer MEDICARE, MEDICAID | END 2018-07-31 09:09 | disposition home or self-care (01) | LOC: ER 08:42 ==

== ENCOUNTER 2018-09-22 11:17 | Emergency (ER) | payer MEDICARE, MEDICAID ==
[~2018-09-22] VITALS: Ht 167.6 cm; Wt 106.6 kg
[~2018-09-22 11:17] MED LIST changes: +ALBU18HF2; +BENZ-13 PO; +SERT50TA9
--- NOTE | 2018-09-22 12:04 | ED Abdominal Pain ---
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 Stated Complaint: 7 WEEKS ;VAGINAL BLEEDING Source of Information: Patient Exam Limitations: No Limitations History of Present Illness Date Seen by Provider: Sep 22, 2018 Time Seen by Provider: 11:50 Allergies and Home Medications Allergies Coded Allergies: levofloxacin (Unverified Allergy, Mild, N/V, 01/19/18) Home Medications Baclofen 10 Mg Tablet, 10 MG PO TID, (Reported) Benzonatate 100 Mg Capsule, 100 MG PO Q6H PRN for COUGH Prescribed by: RICARDO PHAN on 07/31/18 0858 Sulfamethoxazole/Trimethoprim 1 Each Tablet, 2 EACH PO BID Prescribed by: RICARDO PHAN on 07/04/18 0341 Past Vijdmqp-Vpoqza-Bpaint Hx Patient Social History Drug of Choice: cannibus 2nd Hand Smoke Exposure: No Recent Foreign Travel: No Contact w/Someone Who Travel: No Recent Hopitalizations: No Immunizations Up To Date Tetanus Booster (TDap): Less than 5yrs PED Vaccines UTD: No Date of Influenza Vaccine: May 06, 2014 Seasonal Allergies Seasonal Allergies: No Past Medical History Surgeries: Yes (LAP BAND , EAR TUBES, LAP BAND REMOVED, DUODENAL SWITCH, EGD) Abdominal, Appendectomy, Ear Surgery, Gallbladder, Tonsillectomy Respiratory: Yes Asthma Cardiac: No Hypertension Neurological: Yes Headaches /Migraines Reproductive Disorders: Yes (IRREGULAR PERIODS) Female Reproductive Disorders: Menstrual Problems Genitourinary: Yes UTI-Chronic Gastrointestinal: Yes (03/25/14 Biliopancreatic Diversion with Duodenal Switch , hx feeding tube) Musculoskeletal: No Endocrine: No Hypothyroidsim, Diabetes, Non-Insulin dep HEENT: No Cancer: No Psychosocial: Yes Bipolar, Schizophrenia, Depression Integumentary: No Blood Disorders: No Family Medical History Family history: Arthritis 03 MOTHER Family history: Asthma 03 FATHER Family history: Diabetes mellitus 03 MOTHER HALF SISTER Family history: Glaucoma 03 MOTHER Family history: Hypertension 03 FATHER Family history: Osteoporosis 03 MOTHER Family history: Thyroid disorder 09 SISTER (THYROIDECTOMY) Headache 03 MOTHER 09 SISTER Hearing loss 03 MOTHER History of - respiratory disease 03 FATHER Hypercholesterolemia 03 FATHER No Family History of: Abdominal aortic aneurysm Cristian's disease Alcoholism Aphasia Cancer Cancer of colon Cataract Chest pain Congenital heart disease Congestive heart failure Cystic fibrosis Dementia Dysphagia Family history: Allergy Family history: Alzheimer's disease Family history: Breast disease Family history: Cardiovascular disease Family history: Coronary thrombosis Family history: Gastrointestinal disease Heart disease Hereditary disease History of - anemia History of - disorder History of drug abuse Human immunodeficiency virus (HIV) seropositivity Infertile Kidney disease Malignant neoplasm of lung Myocardial infarction Parkinson's disease Prostate cancer Psychotic disorder Seizure disorder Stroke Tuberculosis Visual impairment Physical Exam Vital Signs Vital Signs - First Documented 09/22/18 11:50 Temp 97.9 Pulse 71 Resp 18 B/P (MAP) 128/77 (94) Pulse Ox 100 Capillary Refill : Height/Weight/BMI Height: 5'6.00" Weight: 243lbs. 0oz. 110.626565yx; 39.5 BMI Method:Stated Progress/Results/Core Measures Results/Orders Lab Results Laboratory Tests Test 09/22/18 12:05 09/22/18 12:15 Range/Units Urine Color PINK Urine Clarity CLEAR Urine pH 6.5 5-9 Urine Specific [place] 1.010 L 1.016-1.022 Urine Protein 2+ H NEGATIVE Urine Glucose (UA) NEGATIVE NEGATIVE Urine Ketones NEGATIVE NEGATIVE Urine Nitrite NEGATIVE NEGATIVE Urine Bilirubin NEGATIVE NEGATIVE Urine Urobilinogen NORMAL NORMAL MG/DL Urine Leukocyte Esterase 1+ H NEGATIVE Urine RBC (Auto) 5+ H NEGATIVE Urine RBC 25-50 H /HPF Urine WBC 2-5 /HPF Urine Squamous Epithelial Cells 5-10 /HPF Urine Crystals NONE /LPF Urine Bacteria TRACE /HPF Urine Casts NONE /LPF Urine Mucus NEGATIVE /LPF Urine Culture Indicated NO White Blood Count 4.7 4.3-11.0 10^3/uL Red Blood Count 4.10 L 4.35-5.85 10^6/uL Hemoglobin 12.0 11.5-16.0 G/DL Hematocrit 37 35-52 % Mean Corpuscular Volume 90 80-99 FL Mean Corpuscular Hemoglobin 29 25-34 PG Mean Corpuscular Hemoglobin Concent 33 32-36 G/DL Red Cell Distribution Width 15.2 H 10.0-14.5 % Platelet Count 200 130-400 10^3/uL Mean Platelet Volume 11.1 H 7.4-10.4 FL Neutrophils (%) (Auto) 53 42-75 % Lymphocytes (%) (Auto) 38 12-44 % Monocytes (%) (Auto) 8 0-12 % Eosinophils (%) (Auto) 1 0-10 % Basophils (%) (Auto) 0 0-10 % Neutrophils # (Auto) 2.5 1.8-7.8 X 10^3 Lymphocytes # (Auto) 1.8 1.0-4.0 X 10^3 Monocytes # (Auto) 0.4 0.0-1.0 X 10^3 Eosinophils # (Auto) 0.0 0.0-0.3 10^3/uL Basophils # (Auto) 0.0 0.0-0.1 10^3/uL Sodium Level 137 135-145 MMOL/L Potassium Level 4.0 3.6-5.0 MMOL/L Chloride Level 108 H 98-107 MMOL/L Carbon Dioxide Level 23 21-32 MMOL/L Anion Gap 6 5-14 MMOL/L Blood Urea Nitrogen 8 7-18 MG/DL Creatinine 0.62 0.60-1.30 MG/DL Estimat Glomerular Filtration Rate > 60 BUN/Creatinine Ratio 13 Glucose Level 69 L 70-105 MG/DL Calcium Level 8.6 8.5-10.1 MG/DL Corrected Calcium 8.7 8.5-10.1 MG/DL Total Bilirubin 0.4 0.1-1.0 MG/DL Aspartate Amino Transf (AST/SGOT) 22 5-34 U/L Alanine Aminotransferase (ALT/SGPT) 28 0-55 U/L Alkaline Phosphatase 78 40-136 U/L Total Protein 7.0 6.4-8.2 GM/DL Albumin 3.9 3.2-4.5 GM/DL Human Chorionic Gonadotropin, Quant 2833 H <5 MIU/ML My Orders Orders - SILVER CONTI Cbc With Automated Diff (09/22/18 11:57) Hcg,Quantitative (09/22/18 11:57) Abo Rh Type (09/22/18 11:57) Comprehensive Metabolic Panel (09/22/18 11:57) Ua Culture If Indicated (09/22/18 11:57) Us Ob Transvaginal [id number] (09/22/18 12:58) Vital Signs/I&O 09/22/18 11:50 Temp 97.9 Pulse 71 Resp 18 B/P (MAP) 128/77 (94) Pulse Ox 100 Departure Impression Primary Impression: Threatened miscarriage in early Disposition: 01 HOME, SELF-CARE Condition: Stable/Unchanged Departure-Patient Inst. Decision time for Depature: 15:20 Referrals: [facility] (PCP) Primary Care Physician PATRICE DURÁN APRN (Family) Primary Care Physician Patient Instructions: Threatened Miscarriage (DC) Add. Discharge Instructions: Call today to schedule an appointment time with [facility] to follow-up with ultrasound or repeat of your beta hCG levels. Return back to the emergency room for worsening symptoms, increased vaginal bleeding, pain, or any other concerns as needed. All discharge instructions reviewed with patient and/or family. Voiced understanding. SILVER CONTI Sep 22, 2018 12:04
[2018-09-22 12:12] LABS: BILIRUBIN,URINE NEGATIVE (NEGATIVE); CLARITY,URINE CLEAR; GLUCOSE, URINE (UA) NEGATIVE (NEGATIVE); KETONES,URINE NEGATIVE (NEGATIVE); LEUKOCYTE ESTERASE ,URINE 1+ (NEGATIVE); NITRITE,URINE NEGATIVE (NEGATIVE); PH,URINE 6.5 (5-9); PROTEIN,URINE 2+ (NEGATIVE); UROBILINOGEN,URINE NORMAL (NORMAL)
[2018-09-22 12:23] LABS: BACTERIA,URINE TRACE /HPF; COLOR,URINE PINK; RBC,URINE 25-50 /HPF
[2018-09-22 12:26] LABS: BASOPHILS % (AUTO) 0 % (0-10); EOSINOPHILS % (AUTO) 1 % (0-10); HEMATOCRIT 37 % (35-52); LYMPHOCYTES # (AUTO) 1.8 X 10^3 (1.0-4.0); LYMPHOCYTES % (AUTO) 38 % (12-44); MEAN CORPUSCULAR HEMOGLOBIN 29 PG (25-34); MEAN CORPUSCULAR HGB CONC 33 G/DL (32-36); MEAN CORPUSCULAR VOLUME 90 FL (80-99); MEAN PLATELET VOLUME 11.1 FL (7.4-10.4); MONOCYTES # (AUTO) 0.4 X 10^3 (0.0-1.0); MONOCYTES % (AUTO) 8 % (0-12); NEUTROPHILS # (AUTO) 2.5 X 10^3 (1.8-7.8); NEUTROPHILS % (AUTO) 53 % (42-75); PLATELET COUNT 200 10^3/uL (130-400); RED CELL DISTRIBUTION WIDTH 15.2 % (10.0-14.5); WHITE BLOOD COUNT 4.7 10^3/uL (4.3-11.0)
[2018-09-22 12:48] LABS: ALANINE AMINOTRANSFERASE 28 U/L (0-55); ALBUMIN 3.9 GM/DL (3.2-4.5); ALKALINE PHOSPHATASE 78 U/L (40-136); BILIRUBIN,TOTAL 0.4 MG/DL (0.1-1.0); BUN/CREATININE RATIO 13; CALCIUM 8.6 MG/DL (8.5-10.1); CARBON DIOXIDE 23 MMOL/L (21-32); CHLORIDE 108 MMOL/L (98-107); CREATININE SERUM 0.62 MG/DL (0.60-1.30); GFR ESTIMATED > 60; GLUCOSE 69 MG/DL (70-105); SODIUM 137 MMOL/L (135-145)
--- NOTE | 2018-09-22 15:08 | Diagnostic Imaging Report ---
INDICATION: 7 weeks . Patient has vaginal bleeding. FINDINGS: The uterus measures 8.8 x 4.2 x 5.4 cm. There is a tiny cystic structure within the endometrium suggestive of a very small gestational sac. No definite pole is seen at this time. No perigestational sac hemorrhage is detected. The right ovary measures 4.1 x 2.2 x 1.7 cm and the left ovary measures 3.3 x 2.0 x 2.0 cm. There is blood flow to the ovaries. No adnexal mass or free fluid is seen. IMPRESSION: There is a tiny intrauterine gestational sac without evidence of pole. A followup ultrasound and/or correlation with serial beta hCG levels could be performed to confirm viability. Dictated by: Dictated on workstation # [id number]
[2018-09-22 15:27] VITALS: BP 128/77
== END 2018-09-22 15:32 | disposition home or self-care (01) ==
LOC: EDUNIT# 11:17 → ER 11:19
DX: O20.0 Threatened abortion (principal); O99.511 Diseases of the respiratory system complicating pregnancy, first trimester; J45.909 Unspecified asthma, uncomplicated; O16.1 Unspecified maternal hypertension, first trimester; O99.351 Diseases of the nervous system complicating pregnancy, first trimester; G43.909 Migraine, unspecified, not intractable, without status migrainosus; O99.281 Endocrine, nutritional and metabolic diseases complicating pregnancy, first trimester; E03.9 Hypothyroidism, unspecified; O24.911 Unspecified diabetes mellitus in pregnancy, first trimester; O99.341 Other mental disorders complicating pregnancy, first trimester; F31.9 Bipolar disorder, unspecified; F20.9 Schizophrenia, unspecified; Z87.440 Personal history of urinary (tract) infections; Z82.49 Family history of ischemic heart disease and other diseases of the circulatory system; Z3A.01 Less than 8 weeks gestation of pregnancy; Z88.8 Allergy status to other drugs, medicaments and biological substances; Z90.49 Acquired absence of other specified parts of digestive tract; Z98.890 Other specified postprocedural states; Z90.89 Acquired absence of other organs; Z96.22 Myringotomy tube(s) status
CPT/HCPCS: 36415; 76817; 80053; 81000; 84702; 85025; 86900; 86901

== ENCOUNTER 2018-10-20 05:36 | Outpatient (CLI) | payer MEDICARE, MEDICAID ==
[~2018-10-20] VITALS: Ht 167.6 cm; Wt 106.6 kg
[~2018-10-20 05:36] MED LIST changes: -SERT50TA9; +SERT50TA9 PO
[2018-10-20] MEDS ORDERED: CHOL500049 PO (15:06)
== END 2018-10-20 15:31 | disposition home or self-care (01) ==
LOC: PREOP 05:36
PROVIDERS: ATTEND Surgery
DX: Z01.818 Encounter for other preprocedural examination (principal)

== ENCOUNTER 2018-10-22 07:46 | Day surgery (SDC) | payer MEDICAID, MEDICARE ==
[~2018-10-22] VITALS: Ht 167.6 cm; Wt 112.7 kg
[~2018-10-22 07:46] MED LIST changes: +CHOL500049 PO
[2018-10-22 07:58] VITALS: BP 125/65
[2018-10-22] MEDS ORDERED: ceFAZolin 2 GM IV Premixed 50 ML IV ONE (08:15)
[2018-10-22] MEDS: LACTATED RINGERS 1,000 ML IV PRN ×2 (08:18→10:12)
[2018-10-22] MEDS ORDERED: LIDOCAINE 1% INJ 20 ML 20 ML VIAL ONE (08:25)
[2018-10-22] MEDS ORDERED: BUP/EPI 0.5% 1:200,000 (SENSORCAINE) 30 ML VIAL ONE (08:25)
--- NOTE | 2018-10-22 08:28 | NUR ---
LUZ ELENA FROM LAB PHONED AND INFORMED URINE HCG WAS POSITIVE. AT [address] DIAZ AND ANDREW MCKEON. BLOOD HCG QN ORDERED. THIS RN PHONED GUADALUPE ROMAN AT DR. RAMOS OFFICE AT 0838 TO REQUEST RESULTS FROM LAST HCG TOTAL QN BE FAXED OVER. FAXED RECEIVED AND VALUE WAS 1320. GUADALUPE INMAN INFORMED THAT SHE WAS SUPPOSE TO RETURN 2 WEEKS AFTER 10/03 RESULT BUT HAD NOT RETURNED OF YET.
--- NOTE | 2018-10-22 08:40 | Progress Note-Pre Operative ---
Pre-Operative Progress Note H&P Reviewed The H&P was reviewed, patient examined and no changes noted. Time Seen by Provider: 08:26 Date H&P Reviewed: Oct 22, 2018 Time H&P Reviewed: 08:28 Pre-Operative Diagnosis: right lower quadrant abdominal mass ELLIOT DIAZ DO Oct 22, 2018 08:40
[2018-10-22] MEDS ORDERED: fentaNYL INJECTION 100 MCG/2 ML AMP ONE (09:42)
[2018-10-22] MEDS ORDERED: LIDOCAINE PF 2% 5 ML (XYLOCAINE) VIAL ONE (09:42)
[2018-10-22] MEDS ORDERED: ONDANSETRON 4 MG/2 ML (SDV) Z0FRAN ONE (09:42)
[2018-10-22] MEDS ORDERED: proPOfol 200 MG/20 ML (DIPRIVAN) VIAL IV ONE (09:42)
[2018-10-22] MEDS ORDERED: MIDAZOLAM 2 MG/2 ML (VERSED) VIAL ONE (09:43)
[2018-10-22] MEDS ORDERED: DEXAMETHASONE 10 MG/ML (DECADRON) 1 ML VIAL ONE (09:46)
[2018-10-22] MEDS ORDERED: SEVOFLURANE (ULTANE) 15 ML INHAL SOLN ONE ×4 (09:46→10:30)
[2018-10-22] MEDS ORDERED: morphine INJ 10 MG/ML 1ML (SYR OR VIAL) IVP ONE (10:00)
[2018-10-22] MEDS ORDERED: fentaNYL INJECTION 100 MCG/2 ML AMP IVP ONE (10:00)
[2018-10-22] MEDS ORDERED: ONDANSETRON 4 MG/2 ML (SDV) Z0FRAN IVP PRN (10:00)
--- NOTE | 2018-10-22 10:30 | Progress Note-Post Operative ---
Post-Operative Progess Note Surgeon (s)/Certified Physician Assistant (s) Surgeon ELLIOT DIAZ DO Certified Physician Assistant: none Pre-Operative Diagnosis right lower quadrant abdominal mass Post-Operative Diagnosis same pending pathology Procedure & Operative Findings Date of Procedure 10/22/18 Procedure Performed/Findings Exc RLQ mass, appx 8cm incision Anesthesia Type GET Estimated Blood Loss Estimated blood loss (mL): scant Specimens/Packing Specimens Removed skin and mass ELLIOT DIAZ DO Oct 22, 2018 10:30
[2018-10-22] MEDS ORDERED: ACHD5005 PO (10:32)
--- NOTE | 2018-10-22 10:33 | Discharge Inst-Surgical ---
Discharge Inst-Surgical Depart Medication/Instructions New, Converted or Re-Newed RX: RX Given to Pt/Family Patient Instructions Follow up Appt: Make appointment for 1 week. [phone] Instructions: No strenuous activity. May shower in 24 hours, no tub bath or soaking. Use incentive spirometer at home as directed. No Smoking Skin/Wound Care: May remove bandages in am. You need to leave the Dermabond on incision it will fall off on it's own. Symptoms to Report: Appetite Changes, Extremity Discoloration, Numbness/Tingling, Swelling Increased , Bleeding Excessive, Eyesight Changes, Pain Increased, Urine Color Change, Constipation(Persistent), Fever over 101 degree F, Pain/Pressure in chest, Urinating Difficulty, Cough Up/Vomit Blood, Heart Beat Irreg/Pounding, Pain/ Pressure in jaw, Cramps in feet or legs, Lightheadedness, Pain/Pressure in shoulder, Diarrhea(Persistent), Memory Changes Suddenly, Questions/Concerns, Weight gain consecutive days, Dizziness/Fainting, Nausea/Vomiting, Shortness of Breath, Weight gain over 2 pounds If questions or concerns contact your physician Or seek help at emergency department. Activity Activity as Tolerated: Yes Activity Instructions: Avoid Stress to Incision Driving Instructions: No Driving/Refer to Diet Discharge Diet: No Restrictions Diet After 24 Hours: Clear Liquid if Nauseous If Any Problems/Questions/Issu: Contact Your Physician, Go to Emergency Room Skin/Wound Care Infection Signs and Symptoms: Increased Redness, Foul Odor of Wound, Increased Drainage, Skin Itchy or Has a Rash, Increased Swelling, Temperature Above 101 F Bathing Instructions: Shower Stitches/Donny/Dermabond Dis: Dermabond Ice Pack: Ice On and Off Site (as needed for pain) ELLIOT DIAZ DO Oct 22, 2018 10:33
[2018-10-22 10:45] VITALS: BP 123/75
--- NOTE | 2018-10-22 11:45 | Anesthesia-General Post-Op ---
General Patient Condition Mental Status/LOC: Same as Preop Cardiovascular: Satisfactory Nausea/Vomiting: Absent Respiratory: Satisfactory Pain: Controlled Complications: Absent Post Op Complications Complications None Follow Up Care/Instructions Patient Instructions None needed. Anesthesia/Patient Condition Patient Condition Patient is doing well, no complaints, stable vital signs, no apparent adverse anesthesia problems. No complications reported per nursing. D/C home per [facility] [place] [facility] [place] Criteria: Yes LINDA VEGA CRNA Oct 22, 2018 11:45
[2018-10-22 11:50] VITALS: BP 116/68
[2018-10-22 12:20] VITALS: BP 109/62
--- NOTE | 2018-10-22 14:06 | OPERATIVE REPORT ---
DATE OF SERVICE: 10/22/2018 PREOPERATIVE DIAGNOSIS: Right lower quadrant abdominal mass. POSTOPERATIVE DIAGNOSIS: Right lower quadrant abdominal mass, pending pathology. PROCEDURE: Excision of right lower quadrant abdominal mass, approximately 8 cm incision into the subcutaneous tissue. SURGEON: David Regalado DO BROWNING PROCESSOR: None. ANESTHESIA: General endotracheal tube. BLOOD LOSS: Scant. FLUIDS: Per anesthesia. POSTOPERATIVE CONDITION: Stable. INDICATION FOR PROCEDURE: The patient is a 27-year-old female, who has a mass that drained, it was an abscess, but continues to drain in the right lower quadrant, came back as a MRSA, will not go away and she wants to get this removed. FINDINGS: The patient had a right lower quadrant abdominal mass removed and sent to pathology. PROCEDURE NOTE: After informed consent was obtained, the patient was brought to the operating room, placed on the operating table in supine position. She was sterilely prepped and draped in normal fashion. Local lidocaine was used to infiltrate around the right lower quadrant mass and open the tissue. We made an incision with a #15 blade an elliptical incision measuring about 8 cm, carried down through the skin into subcutaneous tissue, then deepened down to subcutaneous tissue with Bovie electrocautery, going down under this area of fullness and mass. Cut this completely out with Bovie electrocautery and hemostasis was obtained using Bovie electrocautery, then elected to close the incision in two layers, closing the subcutaneous tissue with 3-0 Vicryl, four interrupted subcutaneous stitches and then closed the skin with a 4-0 undyed Monocryl in running subcuticular fashion. The area was cleaned and dried. Dermabond was placed as well as a pressure dressing. The patient was then transferred to recovery room in stable condition. Sponge, instrument and needle counts were correct at the end of the case. Job ID: [id number] DocumentID: [id number] Dictated Date: 10/22/2018 10:35:22 Vocational Aide Date: 10/22/2018 14:05:48 Dictated By: DAVID REGALADO DO
== END 2018-10-22 12:40 | disposition home or self-care (01) ==
LOC: SDC 07:46
PROVIDERS: ATTEND Surgery
DX: L72.0 Epidermal cyst (principal); E66.01 Morbid (severe) obesity due to excess calories; Z68.41 Body mass index [BMI] 40.0-44.9, adult; I10 Essential (primary) hypertension; G47.33 Obstructive sleep apnea (adult) (pediatric); F41.9 Anxiety disorder, unspecified; F33.41 Major depressive disorder, recurrent, in partial remission; Z79.899 Other long term (current) drug therapy
CPT/HCPCS: 36415; 84702; 84703; 87081

== ENCOUNTER 2019-04-28 14:32 | Emergency (ER) | payer MEDICAID ==
[~2019-04-28] VITALS: Ht 167 cm; Wt 115.0 kg
--- NOTE | 2019-04-28 15:35 | NUR ---
NOTIFIED OF BUSY ER WITH POSSIBLE LONG WAIT TIME.
--- NOTE | 2019-04-28 17:07 | NUR ---
BROUGHT BACK INTO TRIAGE FOR VITALS CHECK. [id number]%RA- 117/79. NOTIFIED THAT ER CONTINUED TO BE BUSY AND SOMEONE WOULD BE TO GET HER SOON THEY COULD.
--- NOTE | 2019-04-28 17:38 | ED Headache ---
General Chief Complaint: Head/Cervical Problems Stated Complaint: HEAD PAIN;VISION ISSUES;7WKS PREG. Nursing Triage Note: ARRIVED VIA AMB TO TRIAGE WITH COMPAINTS OF A MIGRAINE STARTING 2 DAYS AGO ET NOW STATES ITS THE WORSE ONE SHE HAS EVER HAD. ALSO COMPLAINS OF N/V. PT IS 7 WEEKS GESTATION. Nursing Sepsis Screen: No Definite Risk Source: patient History of Present Illness Date Seen by Provider: Apr 28, 2019 Time Seen by Provider: 17:34 Initial Comments The patient is a 28-year-old white female known to me for some years. She reports that she got a headache beginning on Saturday. It is mostly posterior. She feels nauseated and has vomited. She has not taken any migraine-related me dications and she is 7 weeks . Severity/Quality: severe Location: occipital Prior Headaches/Recent Trauma: frequent headaches Modifying Factors: improves with exposure to light Associated Symptoms: nausea/vomiting Allergies and Home Medications Allergies Coded Allergies: levofloxacin (Unverified Allergy, Mild, N/V, 10/20/18) Home Medications Cholecalciferol (Vitamin D3) 50,000 Unit Capsule, 50,000 UNIT PO Mo, (Reported) Hydrocodone Bit/Acetaminophen 1 Tab Tab, 1 TAB PO Q6H PRN for PAIN-MODERATE Prescribed by: ELLIOT DIAZ on 10/22/18 1032 Sertraline HCl 50 Mg Tablet, 50 MG PO HS, (Reported) Patient Home Medication List Home Medication List Reviewed: Yes Review of Systems Review of Systems Constitutional: see HPI Eyes: No Symptoms Reported Ears, Nose, Mouth, Throat: no symptoms reported Respiratory: no symptoms reported Cardiovascular: no symptoms reported Expected Date of Delivery: Dec 18, 2019 Musculoskeletal: no symptoms reported Skin: no symptoms reported Psychiatric/Neurological: No Symptoms Reported Past Utzhyok-Kfjhdb-Taozlz Hx Patient Social History Alcohol Use: Denies Use Recreational Drug Use: No Drug of Choice: cannibus Smoking Status: Former Smoker 2nd Hand Smoke Exposure: Yes Recent Foreign Travel: No Contact w/Someone Who Travel: No Recent Infectious Disease Expo: No Recent Hopitalizations: No Immunizations Up To Date Tetanus Booster (TDap): Less than 5yrs PED Vaccines UTD: No Date of Influenza Vaccine: May 06, 2014 Seasonal Allergies Seasonal Allergies: No Past Medical History Surgeries: Yes (LAP BAND /REMOVAL, EAR TUBES, DUODENAL SWITCH, EGD, PEG TUBE/REMOVAL) Abdominal, Adenoidectomy, Appendectomy, Ear Surgery, Gallbladder, Tonsillectomy Respiratory: Yes (NO ISSUES UNLESS HAS A COLD) Asthma Cardiac: No Hypertension Neurological: Yes (SEIZURES AT FROM MENINGITIS) Headaches /Migraines, Seizure Disorder : Yes Expected Date of Delivery: Dec 18, 2019 Reproductive Disorders: Yes (IRREGULAR PERIODS) Female Reproductive Disorders: Menstrual Problems Sexually Transmitted Disease: No HIV/AIDS: No Genitourinary: No UTI-Chronic Gastrointestinal: Yes (03/25/14 Biliopancreatic Diversion with Duodenal Switch, hx feeding tube) Musculoskeletal: Yes (LUMBAR) Chronic Back Pain Endocrine: No Hypothyroidsim, Diabetes, Non-Insulin dep HEENT: No Loss of Vision: Denies Hearing Impairment: Denies Cancer: No Psychosocial: Yes Bipolar, Schizophrenia, Depression Integumentary: No Blood Disorders: No Adverse Reaction/Blood Tranf: No (N/A) Family Medical History Family history: Arthritis 03 MOTHER Family history: Asthma 03 FATHER Family history: Diabetes mellitus 03 MOTHER HALF SISTER Family history: Glaucoma 03 MOTHER Family history: Hypertension 03 FATHER Family history: Osteoporosis 03 MOTHER Family history: Thyroid disorder 09 SISTER (THYROIDECTOMY) Headache 03 MOTHER 09 SISTER Hearing loss 03 MOTHER History of - respiratory disease 03 FATHER Hypercholesterolemia 03 FATHER No Family History of: Abdominal aortic aneurysm Cristian's disease Alcoholism Aphasia Cancer Cancer of colon Cataract Chest pain Congenital heart disease Congestive heart failure Cystic fibrosis Dementia Dysphagia Family history: Allergy Family history: Alzheimer's disease Family history: Breast disease Family history: Cardiovascular disease Family history: Coronary thrombosis Family history: Gastrointestinal disease Heart disease Hereditary disease History of - anemia History of - disorder History of drug abuse Human immunodeficiency virus (HIV) seropositivity Infertile Kidney disease Malignant neoplasm of lung Myocardial infarction Parkinson's disease Prostate cancer Psychotic disorder Seizure disorder Stroke Tuberculosis Visual impairment Physical Exam Vital Signs Vital Signs - First Documented 04/28/19 15:01 Temp 36.8 Pulse 73 Resp 16 B/P (MAP) 113/78 (90) Pulse Ox 99 O2 Delivery Room Air Capillary Refill : Less Than 3 Seconds Height, Weight, BMI Height: 5'6.00" Weight: 248lbs. 8.0oz. [phone]; 41.00 BMI Method:Stated General Appearance: mild distress, moderate distress HEENT: normal ENT inspection Neck: full range of motion Cardiovascular: normal peripheral pulses, regular rate, rhythm, no edema, no gallop, no JVD, no murmur Respiratory: chest non-tender, lungs clear, normal breath sounds, no respiratory distress, no accessory muscle use Gastrointestinal: normal bowel sounds, non tender Extremities: normal range of motion, non-tender, normal inspection, no pedal edema, no calf tenderness, normal capillary refill, pelvis stable Comments No pedal edema by virtue of ophthalmoscopy Progress/Results/Core Measures Results/Orders My Orders Orders - YAJAIRA FLETCHER MD Iv 1000 Ml (Sodium Chloride 0.9%) (04/28/19 17:45) Ondansetron Injection (Zofran Injectio (04/28/19 17:45) Diphenhydramine Injection (Benadryl Inje (04/28/19 17:45) Promethazine Injection (Phenergan Injec (04/28/19 20:00) Medications Given in ED Current Medications Medications Dose Ordered Sig/Tulio Route Start Time Stop Time Status Last Admin Dose Admin Diphenhydramine HCl 25 mg ONCE ONCE IM 04/28/19 17:45 04/28/19 17:46 DC 04/28/19 18:35 25 MG Ondansetron HCl 8 mg ONCE ONCE IVP 04/28/19 17:45 04/28/19 17:46 DC 04/28/19 18:31 8 MG Promethazine HCl 25 mg ONCE ONCE IVP 04/28/19 20:00 04/28/19 20:01 DC 04/28/19 20:46 25 MG Vital Signs/I&O 04/28/19 15:01 Temp 36.8 Pulse 73 Resp 16 B/P (MAP) 113/78 (90) Pulse Ox 99 O2 Delivery Room Air Blood Pressure Mean: 90 Departure Communication (Admissions) 1929 reevaluated the patient she reported no real improvement. At that point she had received 1 L of normal saline 8 mg of Zofran and 25 mg of Benadryl 25 mg of Phenergan was ordered. 2129 patient reports that the Phenergan has been of some value and she believes this is all that she can expect in her state. Impression Primary Impression: migraine headache Disposition: HOME, SELF-CARE Condition: Stable/Unchanged Departure-Patient Inst. Decision time for Depature: 21:45 Referrals: [facility]/ (PCP) Primary Care Physician PATRICE DURÁN APRN (Family) Primary Care Physician Patient Instructions: Migraine Headache (DC) Add. Discharge Instructions: All discharge instructions reviewed with patient and/or family. Voiced understanding. Make contact with your provider and her OB to get a program for headache management and safety in . Scripts Ondansetron (Ondansetron Odt) 8 Mg Tab.rapdis 8 MG PO EVERY 4 HOURS, #20 TAB Prov: YAJAIRA FLETCHER MD 04/28/19 YAJAIRA FLETCHER MD Apr 28, 2019 17:38
[2019-04-28] MEDS ORDERED: NS IV 1000 ML 1,000 ML IV SCH (17:45)
[2019-04-28] MEDS ORDERED: ONDANSETRON 4 MG/2 ML (SDV) Z0FRAN IVP ONE (17:45)
[2019-04-28] MEDS ORDERED: diphenhydrAMINE 50 MG/ML INJ (BENADRYL) IM ONE (17:45)
--- NOTE | 2019-04-28 18:35 | NUR ---
Pt's benedryl given IV per Dr. Vazquez
--- NOTE | 2019-04-28 19:15 | NUR ---
Pt reports no change in symptoms at this time. Dr. Vazquez notified.
[2019-04-28] MEDS ORDERED: PROMETHAZINE INJ 25 MG/ML (PHENERGAN) AMP IVP ONE (20:00)
--- NOTE | 2019-04-28 21:26 | NUR ---
Pt reports feeling the best she thinks she's going to feel at this time. George notified.
[2019-04-28] MEDS ORDERED: ONDA8TAB13 PO (21:47)
[2019-04-28 22:15] VITALS: BP 104/54
== END 2019-04-28 22:15 | disposition home or self-care (01) ==
LOC: EDUNIT# 14:32 → ER 14:33
DX: O99.351 Diseases of the nervous system complicating pregnancy, first trimester (principal); G43.909 Migraine, unspecified, not intractable, without status migrainosus; O16.1 Unspecified maternal hypertension, first trimester; O99.511 Diseases of the respiratory system complicating pregnancy, first trimester; J45.909 Unspecified asthma, uncomplicated; G40.909 Epilepsy, unspecified, not intractable, without status epilepticus; O99.341 Other mental disorders complicating pregnancy, first trimester; F31.9 Bipolar disorder, unspecified; F20.9 Schizophrenia, unspecified; O24.911 Unspecified diabetes mellitus in pregnancy, first trimester; O99.281 Endocrine, nutritional and metabolic diseases complicating pregnancy, first trimester; E03.9 Hypothyroidism, unspecified; Z3A.01 Less than 8 weeks gestation of pregnancy; Z87.440 Personal history of urinary (tract) infections; Z88.1 Allergy status to other antibiotic agents; Z87.891 Personal history of nicotine dependence; Z77.22 Contact with and (suspected) exposure to environmental tobacco smoke (acute) (chronic); Z90.49 Acquired absence of other specified parts of digestive tract; Z90.89 Acquired absence of other organs; Z82.49 Family history of ischemic heart disease and other diseases of the circulatory system

== ENCOUNTER 2020-01-12 15:11 | Inpatient (IN) | payer BC ==
[~2020-01-12] VITALS: Ht 167.6 cm; Wt 126.0 kg
[~2020-01-12 15:11] MED LIST changes: -CLON0.5T13; +CLON0.5T4; +IBUP-1780 PO; +IRON18TA PO; +LORA5TAB9 PO; +ONDA8TAB13 PO; +OXYC1TAB12 PO; +PREN-53 PO
--- NOTE | 2020-01-12 15:30 | NUR ---
PT STATES HAD BABY 1 MONTH AGO
[2020-01-12 16:06] LABS: BASOPHILS % (AUTO) 0 % (0-10); EOSINOPHILS % (AUTO) 0 % (0-10); HEMATOCRIT 37 % (35-52); HEMOGLOBIN 11.3 G/DL (11.5-16.0); LYMPHOCYTES # (AUTO) 0.8 X 10^3 (1.0-4.0); LYMPHOCYTES % (AUTO) 9 % (12-44); MEAN CORPUSCULAR HEMOGLOBIN 25 PG (25-34); MEAN CORPUSCULAR HGB CONC 31 G/DL (32-36); MEAN CORPUSCULAR VOLUME 83 FL (80-99); MEAN PLATELET VOLUME 10.9 FL (7.4-10.4); MONOCYTES # (AUTO) 0.6 X 10^3 (0.0-1.0); MONOCYTES % (AUTO) 6 % (0-12); NEUTROPHILS # (AUTO) 7.5 X 10^3 (1.8-7.8); NEUTROPHILS % (AUTO) 84 % (42-75); PLATELET COUNT 216 10^3/uL (130-400); RED CELL DISTRIBUTION WIDTH 19.5 % (10.0-14.5); WHITE BLOOD COUNT 8.9 10^3/uL (4.3-11.0)
--- NOTE | 2020-01-12 16:13 | Diagnostic Imaging Report ---
CLINICAL INDICATION: Patient with Covid symptoms and shortness of air. EXAM: Portable chest x-ray upright view. COMPARISONS: Chest x-ray dated 12/11/2016. CT scan of the chest, abdomen, and pelvis with contrast dated 12/13/2016. FINDINGS: Lungs/pleura: There is minimal discoid atelectasis in the lingular region. Nodular area in the right lung base likely correlates to a partially calcified nodule seen on prior chest CT scan. There is no interval lung infiltrate. There is no pneumothorax. There is no pleural effusion. Mediastinum: Unremarkable. Pulmonary vasculature: Unremarkable. Heart: Unremarkable. Bones/extrathoracic soft tissue: Unremarkable. IMPRESSION: 1: There is no interval radiographic evidence of acute cardiopulmonary process. 2: Minimal discoid atelectasis in the lingular region. Dictated by: Dictated on workstation # [id number]
[2020-01-12 16:17] LABS: ALBUMIN 3.7 GM/DL (3.2-4.5)
[2020-01-12] MEDS ORDERED: ONDANSETRON 4 MG/2 ML (SDV) Z0FRAN ONE (16:17)
[2020-01-12 16:18] LABS: CHLORIDE 108 MMOL/L (98-107); POTASSIUM 3.9 MMOL/L (3.6-5.0); SODIUM 139 MMOL/L (135-145)
[2020-01-12 16:19] LABS: CALCIUM 8.1 MG/DL (8.5-10.1)
[2020-01-12 16:20] LABS: GLUCOSE 97 MG/DL (70-105); TOTAL PROTEIN 7.3 GM/DL (6.4-8.2)
[2020-01-12 16:21] LABS: CARBON DIOXIDE 19 MMOL/L (21-32)
[2020-01-12 16:22] LABS: BILIRUBIN,TOTAL 0.3 MG/DL (0.1-1.0)
[2020-01-12 16:23] LABS: ALKALINE PHOSPHATASE 104 U/L (40-136)
[2020-01-12 16:24] LABS: CREATININE SERUM 0.61 MG/DL (0.60-1.30); GFR ESTIMATED > 60
[2020-01-12 16:25] LABS: BUN/CREATININE RATIO 13
[2020-01-12 16:27] LABS: ALANINE AMINOTRANSFERASE 16 U/L (0-55)
[2020-01-12 16:29] LABS: BILIRUBIN,URINE NEGATIVE (NEGATIVE); CLARITY,URINE CLEAR; COLOR,URINE YELLOW; GLUCOSE, URINE (UA) NEGATIVE (NEGATIVE); KETONES,URINE TRACE (NEGATIVE); LEUKOCYTE ESTERASE ,URINE 1+ (NEGATIVE); NITRITE,URINE NEGATIVE (NEGATIVE); PH,URINE 5.5 (5-9); PROTEIN,URINE TRACE (NEGATIVE)
[2020-01-12 16:36] LABS: BACTERIA,URINE LARGE /HPF; RBC,URINE 0-2 /HPF; WBC,URINE 25-50 /HPF
--- NOTE | 2020-01-12 16:37 | ED General ---
General Chief Complaint: Fever-Adult/Adol Stated Complaint: FEVER Nursing Triage Note: PT TO ED PT CO OF FEVER UP TO 103 STARTED LAST PM. DENIES COUGH. STATES HAS CHILLS WEAKNESS AND BODY ACHES Nursing Sepsis Screen: Possible Sepsis Risk Source of Information: Patient Exam Limitations: No Limitations History of Present Illness Date Seen by Provider: Jan 12, 2020 Time Seen by Provider: 15:34 Initial Comments To ER with fever up to 103 that began during the night. No cough no shortness of breath. She does have weakness and general body aches and headache and diarrhea. Vaginal delivery 1 month ago. Timing/Duration: 1-2 Days Severity: Moderate Associated Systoms: No Cough Allergies and Home Medications Allergies Coded Allergies: levofloxacin (Unverified Allergy, Mild, N/V, 10/20/18) Home Medications Ibuprofen 800 Mg Tablet, 800 MG PO Q6H Prescribed by: JUAN ANTONIO ZHANG on 12/14/19 0756 Sertraline HCl 50 Mg Tablet, 50 MG PO HS, (Reported) Patient Home Medication List Home Medication List Reviewed: Yes Review of Systems Review of Systems Constitutional: see HPI EENTM: see HPI Respiratory: no symptoms reported Cardiovascular: no symptoms reported Genitourinary: no symptoms reported Musculoskeletal: no symptoms reported Skin: no symptoms reported Psychiatric/Neurological: No Symptoms Reported Past Edpvpcn-Ocflqg-Mnqsly Hx Patient Social History Alcohol Use: Denies Use Recreational Drug Use: No Drug of Choice: cannibus Smoking Status: Never a Smoker 2nd Hand Smoke Exposure: Yes Recent Foreign Travel: No Contact w/Someone Who Travel: No Recent Infectious Disease Expo: No Recent Hopitalizations: Yes ( DECEMBER 12) Physical Abuse: No Sexual Abuse: No Immunizations Up To Date Tetanus Booster (TDap): Less than 5yrs PED Vaccines UTD: No Date of Influenza Vaccine: May 06, 2014 Seasonal Allergies Seasonal Allergies: No Past Medical History Surgeries: Yes (LAP BAND /REMOVAL, EAR TUBES, DUODENAL SWITCH, EGD, PEG TUBE/REMOVAL) Abdominal, Adenoidectomy, Appendectomy, Ear Surgery, Gallbladder, Tonsillectomy Respiratory: Yes (NO ISSUES UNLESS HAS A COLD) Asthma Currently Using CPAP: No Currently Using BIPAP: No Cardiac: No Hypertension Neurological: Yes (SEIZURES AT FROM MENINGITIS) Headaches /Migraines, Seizure Disorder Reproductive Disorders: Yes (IRREGULAR PERIODS) Female Reproductive Disorders: Menstrual Problems Sexually Transmitted Disease: No HIV/AIDS: No Genitourinary: No UTI-Chronic Gastrointestinal: Yes (03/25/14 Biliopancreatic Diversion with Duodenal Switch, hx feeding tube) Musculoskeletal: Yes (LUMBAR) Chronic Back Pain Endocrine: No Hypothyroidsim, Diabetes, Non-Insulin dep HEENT: No Loss of Vision: Denies Hearing Impairment: Denies Cancer: No Psychosocial: Yes Bipolar, Schizophrenia, Depression Integumentary: No Blood Disorders: No Adverse Reaction/Blood Tranf: No (N/A) Family Medical History Family history: Arthritis 03 MOTHER Family history: Asthma 03 FATHER Family history: Diabetes mellitus 03 MOTHER HALF SISTER Family history: Glaucoma 03 MOTHER Family history: Hypertension 03 FATHER Family history: Osteoporosis 03 MOTHER Family history: Thyroid disorder 09 SISTER (THYROIDECTOMY) Headache 03 MOTHER 09 SISTER Hearing loss 03 MOTHER History of - respiratory disease 03 FATHER Hypercholesterolemia 03 FATHER No Family History of: Abdominal aortic aneurysm Lavaca's disease Alcoholism Aphasia Cancer Cancer of colon Cataract Chest pain Congenital heart disease Congestive heart failure Cystic fibrosis Dementia Dysphagia Family history: Allergy Family history: Alzheimer's disease Family history: Breast disease Family history: Cardiovascular disease Family history: Coronary thrombosis Family history: Gastrointestinal disease Heart disease Hereditary disease History of - anemia History of - disorder History of drug abuse Human immunodeficiency virus (HIV) seropositivity Infertile Kidney disease Malignant neoplasm of lung Myocardial infarction Parkinson's disease Prostate cancer Psychotic disorder Seizure disorder Stroke Tuberculosis Visual impairment Physical Exam Vital Signs Vital Signs - First Documented 01/12/20 16:04 Temp 37.5 Pulse 120 Resp 18 B/P (MAP) 137/70 (92) Pulse Ox 94 Capillary Refill : Less Than 3 Seconds Height, Weight, BMI Height: 5'6.00" Weight: 248lbs. 8.0oz. 112.785280ub; 39.00 BMI Method:Stated General Appearance: No Apparent Distress, WD/WN, Other (no distress oxygen 95- 97% on room air) Eyes: Bilateral Eye Normal Inspection, Bilateral Eye PERRL, Bilateral Eye EOMI HEENT: PERRL/EOMI, TMs Normal Neck: Full Range of Motion, Normal Inspection Respiratory: Normal Breath Sounds, No Accessory Muscle Use, No Respiratory Distress Cardiovascular: Normal Peripheral Pulses, Tachycardia Gastrointestinal: Normal Bowel Sounds, Non Tender, Soft Extremity: Normal Capillary Refill, Normal Inspection Neurologic/Psychiatric: Alert, Oriented x3 Skin: Normal Color, Warm/Dry Focused Exam Lactate Level 01/12/20 15:33: Lactic Acid Level 1.01 Lactic Acid Level Laboratory Tests Test 01/12/20 15:33 Lactic Acid Level 1.01 MMOL/L (0.50-2.00) Progress/Results/Core Measures Suspected Sepsis Recent Fever Within 48 Hours: Yes Infection Criteria Present: Suspected New Infection New/Unexplained Altered Menta: No Sepsis Screen: Possible Sepsis Risk SIRS Temperature: Pulse: 120 Respiratory Rate: 18 Laboratory Tests 01/12/20 15:33: White Blood Count 8.9 Blood Pressure 137 /70 Mean: 92 01/12/20 15:33: Lactic Acid Level 1.01 Laboratory Tests 01/12/20 15:33: Creatinine 0.61, Platelet Count 216, Total Bilirubin 0.3 Results/Orders Lab Results Laboratory Tests Test 01/12/20 15:33 01/12/20 16:14 01/12/20 16:15 Range/Units White Blood Count 8.9 4.3-11.0 10^3/uL Red Blood Count 4.47 4.35-5.85 10^6/uL Hemoglobin 11.3 L 11.5-16.0 G/DL Hematocrit 37 35-52 % Mean Corpuscular Volume 83 80-99 FL Mean Corpuscular Hemoglobin 25 25-34 PG Mean Corpuscular Hemoglobin Concent 31 L 32-36 G/DL Red Cell Distribution Width 19.5 H 10.0-14.5 % Platelet Count 216 130-400 10^3/uL Mean Platelet Volume 10.9 H 7.4-10.4 FL Neutrophils (%) (Auto) 84 H 42-75 % Lymphocytes (%) (Auto) 9 L 12-44 % Monocytes (%) (Auto) 6 0-12 % Eosinophils (%) (Auto) 0 0-10 % Basophils (%) (Auto) 0 0-10 % Neutrophils # (Auto) 7.5 1.8-7.8 X 10^3 Lymphocytes # (Auto) 0.8 L 1.0-4.0 X 10^3 Monocytes # (Auto) 0.6 0.0-1.0 X 10^3 Eosinophils # (Auto) 0.0 0.0-0.3 10^3/uL Basophils # (Auto) 0.0 0.0-0.1 10^3/uL Sodium Level 139 135-145 MMOL/L Potassium Level 3.9 3.6-5.0 MMOL/L Chloride Level 108 H 98-107 MMOL/L Carbon Dioxide Level 19 L 21-32 MMOL/L Anion Gap 12 5-14 MMOL/L Blood Urea Nitrogen 8 7-18 MG/DL Creatinine 0.61 0.60-1.30 MG/DL Estimat Glomerular Filtration Rate > 60 BUN/Creatinine Ratio 13 Glucose Level 97 70-105 MG/DL Lactic Acid Level 1.01 0.50-2.00 MMOL/L Calcium Level 8.1 L 8.5-10.1 MG/DL Corrected Calcium 8.3 L 8.5-10.1 MG/DL Total Bilirubin 0.3 0.1-1.0 MG/DL Aspartate Amino Transf (AST/SGOT) 19 5-34 U/L Alanine Aminotransferase (ALT/SGPT) 16 0-55 U/L Alkaline Phosphatase 104 40-136 U/L C-Reactive Protein High Sensitivity 1.64 H 0.00-0.50 MG/DL Total Protein 7.3 6.4-8.2 GM/DL Albumin 3.7 3.2-4.5 GM/DL Urine Color YELLOW Urine Clarity CLEAR Urine pH 5.5 5-9 Urine Specific [place] 1.025 H 1.016-1.022 Urine Protein TRACE H NEGATIVE Urine Glucose (UA) NEGATIVE NEGATIVE Urine Ketones TRACE H NEGATIVE Urine Nitrite NEGATIVE NEGATIVE Urine Bilirubin NEGATIVE NEGATIVE Urine Urobilinogen 0.2 < = 1.0 MG/DL Urine Leukocyte Esterase 1+ H NEGATIVE Urine RBC (Auto) TRACE-I NEGATIVE Urine RBC 0-2 /HPF Urine WBC 25-50 H /HPF Urine Squamous Epithelial Cells 5-10 /HPF Urine Crystals NONE /LPF Urine Bacteria LARGE H /HPF Urine Casts NONE /LPF Urine Mucus NEGATIVE /LPF Urine Culture Indicated YES My Orders Orders - SHALINI POON BUSINESS OPERATIONS SPECIALIST Cbc With Automated Diff (01/12/20 15:48) Hs C Reactive Protein (01/12/20 15:48) Comprehensive Metabolic Panel (01/12/20 15:48) Ed Iv/Invasive Line Start (01/12/20 15:48) Blood Culture (01/12/20 15:48) Lactic Acid Analyzer (01/12/20 15:48) Chest 1 View, Ap/Pa Only (01/12/20 15:56) Ondansetron Injection (Zofran Injectio (7/7/20 16:17) Urinalysis (01/12/20 16:23) Coronavirus Sars-Cov-2 So 2018 (01/12/20 16:29) Urine Culture (01/12/20 16:15) Ceftriaxone For Iv Use (Rocephin For I (01/12/20 16:45) Ct Angio Chest W (01/12/20 16:39) Iohexol Injection (Omnipaque 350 Mg/Ml 1 (01/12/20 17:15) Received Contrast (Hold Metformin- Contr (01/12/20 17:15) Ns (Ivpb) (Sodium Chloride 0.9% Ivpb Bag (01/12/20 17:15) Ibuprofen Tablet (Motrin Tablet) (01/12/20 17:15) Ns Iv 1000 Ml (Sodium Chloride 0.9%) (01/12/20 17:45) Medications Given in ED Current Medications Medications Dose Ordered Sig/Tulio Route Start Time Stop Time Status Last Admin Dose Admin Ceftriaxone Sodium 1000 mg/ Sterile Water 10 ml @ 200 mls/hr ONCE ONCE IV 01/12/20 16:45 01/12/20 16:47 DC 01/12/20 17:30 200 MLS/HR Ibuprofen 200 mg STK-MED ONCE PO 01/12/20 17:15 01/12/20 17:17 DC 01/12/20 17:15 200 MG Iohexol 100 ml ONCE ONCE IV 01/12/20 17:15 01/12/20 17:16 DC 01/12/20 17:51 83 ML Ondansetron HCl 4 mg STK-MED ONCE .ROUTE 01/12/20 16:17 01/12/20 16:19 DC 01/12/20 16:22 4 MG Sodium Chloride 100 ml ONCE ONCE IV 01/12/20 17:15 01/12/20 17:16 DC 01/12/20 17:51 100 ML Sodium Chloride 1,000 ml @ ud STK-MED ONCE .ROUTE 01/12/20 17:45 01/12/20 17:48 DC 01/12/20 17:49 1,000 MLS/HR Vital Signs/I&O 01/12/20 01/12/20 16:04 17:15 Temp 37.5 38.3 Pulse 120 Resp 18 B/P (MAP) 137/70 (92) Pulse Ox 94 Capillary Refill : Less Than 3 Seconds Blood Pressure Mean: 92 Diagnostic Imaging Diagonstic Imaging: CT Comments NAME: BANDAR KEATING [facility] REC#: [id number] PT STATUS: REG ER : 1990 PHYSICIAN: SHALINI POON BUSINESS OPERATIONS SPECIALIST ADMIT DATE: 01/12/20/ER Draft Date of Exam:01/12/20 CT ANGIO CHEST W PROCEDURE: CT angiography of the chest with contrast. TECHNIQUE: Multiple contiguous axial images were obtained through the chest after uneventful bolus administration of intravenous contrast. 3D reconstructed CTA MIP acquisitions were also performed. Auto Exposure Controls were utilized during the CT exam to meet ALARA standards for radiation dose reduction. INDICATION: Fever. COMPARISON: December 13, 2016 and radiograph dated January 12, 2020. FINDINGS: Multiple calcified mediastinal and hilar lymph nodes are present. No pathologically enlarged lymph nodes within the chest. No aneurysmal dilatation of thoracic aorta. The heart is within normal limits in size. No pericardial effusion. No pleural effusion. No pneumothorax. Calcified granuloma within the right middle lobe. The lungs otherwise appear clear. Evaluation for pulmonary emboli is limited secondary to patient's body habitus. No saddle pulmonary embolus. No embolus within the right or left pulmonary artery. However, segmental and subsegmental branches of the right and left pulmonary artery are limiting evaluation for underlying pulmonary emboli. Postsurgical changes involving the stomach. Cholecystectomy. 3.2 cm hypodense region is noted within the superior pole of the left kidney with poor corticomedullary differentiation and minimal adjacent fat stranding. This is new since the prior examination. Minimally visualized right kidney is unremarkable. No acute osseous abnormalities with mild scattered osseous degenerative changes. Hemangioma identified within the L1 vertebral body. No acute osseous abnormality. IMPRESSION: New 3.2 cm hypodensity within the superior pole of the left kidney. Given appearance, this is favored to relate to underlying pyelonephritis. Recommend correlation with urinary analysis. Mass lesion or infarction felt less likely. No large saddle pulmonary embolus. Evaluation for segmental and subsegmental pulmonary emboli is significantly limited. Evidence of chronic granulomatous disease. Postsurgical changes involving the bowel are partially visualized. Additional findings as above. Dictated on workstation # [id number] Dict: 01/12/20 1750 Trans: 01/12/20 1804 AIG [id number] Interpreted by: PASCALE FERRARI MD Electronically signed by: Departure Communication (Admissions) Time/Spoke to Admitting Phy: 18:16 1816-she is tachycardic with a rate of 120, normal white count, UTI with pyelonephritis on CT scan. She'll need admitted. Impression Primary Impression: Pyelonephritis Disposition: ADMITTED INPATIENT Condition: Stable Admissions Decision to Admit Reason: Admit from ER (General) Decision to Admit/Date: Jan 12, 2020 Time/Decision to Admit Time: 18:21 Departure-Patient Inst. Referrals: [facility] [place] (PCP) Primary Care Physician PATRICE DURÁN APRN (Family) Primary Care Physician SHALINI POON APRN Jan 12, 2020 16:36
[2020-01-12] MEDS ORDERED: cefTRIAXone FOR IV USE 1,000 MG in WATER (STERILE) FOR INJECTION 10 ML IV ONE (16:45)
[2020-01-12] MEDS ORDERED: IBUPROFEN TABLET 200 MG TAB PO ONE (17:15)
[2020-01-12] MEDS ORDERED: IOHEXOL 350 MG/ML 100 ML (OMNIPAQUE 350) VIAL IV ONE (17:15)
[2020-01-12] MEDS ORDERED: NS 100 ML (IVPB) BAG IV ONE (17:15)
[2020-01-12] MEDS: cefTRIAXone 1,000 MG/SWFI 10 ML IV PUSH IV SCH ×2 (17:15)
[2020-01-12] MEDS ORDERED: HOLD METFORMIN - RECEIVED CONTRAST 20 ML VIAL IV SCH (17:15)
--- NOTE | 2020-01-12 17:15 | NUR ---
MOTRIN 800MG PO GIVEN FOR TEMP 101.0
[2020-01-12] MEDS ORDERED: NS IV 1000 ML 1,000 ML ONE (17:45)
--- NOTE | 2020-01-12 18:06 | Diagnostic Imaging Report ---
PROCEDURE: CT angiography of the chest with contrast. TECHNIQUE: Multiple contiguous axial images were obtained through the chest after uneventful bolus administration of intravenous contrast. 3D reconstructed CTA MIP acquisitions were also performed. Auto Exposure Controls were utilized during the CT exam to meet ALARA standards for radiation dose reduction. INDICATION: Fever. COMPARISON: December 13, 2016 and radiograph dated January 12, 2020. FINDINGS: Multiple calcified mediastinal and hilar lymph nodes are present. No pathologically enlarged lymph nodes within the chest. No aneurysmal dilatation of thoracic aorta. The heart is within normal limits in size. No pericardial effusion. No pleural effusion. No pneumothorax. Calcified granuloma within the right middle lobe. The lungs otherwise appear clear. Evaluation for pulmonary emboli is limited secondary to patient's body habitus. No saddle pulmonary embolus. No embolus within the right or left pulmonary artery. However, segmental and subsegmental branches of the right and left pulmonary artery are limiting evaluation for underlying pulmonary emboli. Postsurgical changes involving the stomach. Cholecystectomy. 3.2 cm hypodense region is noted within the superior pole of the left kidney with poor corticomedullary differentiation and minimal adjacent fat stranding. This is new since the prior examination. Minimally visualized right kidney is unremarkable. No acute osseous abnormalities with mild scattered osseous degenerative changes. Hemangioma identified within the L1 vertebral body. No acute osseous abnormality. IMPRESSION: New 3.2 cm hypodensity within the superior pole of the left kidney. Given appearance, this is favored to relate to underlying pyelonephritis. Recommend correlation with urinary analysis. Mass lesion or infarction felt less likely. No large saddle pulmonary embolus. Evaluation for segmental and subsegmental pulmonary emboli is significantly limited. Evidence of chronic granulomatous disease. Postsurgical changes involving the bowel are partially visualized. Additional findings as above. Dictated by: Dictated on workstation # [id number]
[2020-01-12] MEDS ORDERED: CATHETER FLUSH 10 ML SYR IV PRN (19:00)
[2020-01-12] MEDS ORDERED: ONDANSETRON 4 MG/2 ML (SDV) Z0FRAN IV PRN (19:00)
[2020-01-12] MEDS: LACTATED RINGERS 1,000 ML IV SCH ×2 (19:03→21:03)
[2020-01-12] MEDS ORDERED: ACETAMINOPHEN 500 MG TAB (TYLENOL) ONE (19:04)
--- NOTE | 2020-01-12 19:04 | NUR ---
BANDAR KEATING admitted to room 426-1, with an admitting diagnosis of PYLEONEPHRITIS, on 01/12/20 from ED via WHEELCHAIR, accompanied by ED STAFF.BANDAR KEATING introduced to surroundings, call light, bed controls, phone, TV, temperature control, lights, meal times, smoking policy, visitor policy, side rail policy, bathrooms and showers. Patient Rights given to patient in the handbook. BANDAR KEATING verbalizes understanding that [facility] is not responsible for the loss or damage to any personal effects or valuables that are kept in the patients posession during their hospitalization. BANDAR KEATING verbalizes understanding of Interdisciplinary Patient Education. Patient and/or family were informed about the Rapid Response Team and its purpose.
[2020-01-12] MEDS ORDERED: ACETAMINOPHEN 325 MG TABLET PO ONE (19:15)
[2020-01-12 19:30] VITALS: BP 127/70
[2020-01-12 23:23] VITALS: BP 117/59
[2020-01-12] MEDS: ACETAMINOPHEN 325 MG TABLET PO PRN (23:24)
[2020-01-13 04:45] VITALS: BP 98/54
[2020-01-13] MEDS: LACTATED RINGERS 1,000 ML IV SCH ×4 (05:20→21:09)
[2020-01-13 05:42] LABS: BASOPHILS % (AUTO) 0 % (0-10); EOSINOPHILS % (AUTO) 0 % (0-10); HEMATOCRIT 32 % (35-52); HEMOGLOBIN 9.6 G/DL (11.5-16.0); LYMPHOCYTES # (AUTO) 0.9 X 10^3 (1.0-4.0); LYMPHOCYTES % (AUTO) 6 % (12-44); MEAN CORPUSCULAR HEMOGLOBIN 26 PG (25-34); MEAN CORPUSCULAR HGB CONC 30 G/DL (32-36); MEAN CORPUSCULAR VOLUME 84 FL (80-99); MEAN PLATELET VOLUME 10.6 FL (7.4-10.4); MONOCYTES % (AUTO) 7 % (0-12); NEUTROPHILS # (AUTO) 13.9 X 10^3 (1.8-7.8); NEUTROPHILS % (AUTO) 88 % (42-75); PLATELET COUNT 158 10^3/uL (130-400); RED CELL DISTRIBUTION WIDTH 19.3 % (10.0-14.5); WHITE BLOOD COUNT 15.9 10^3/uL (4.3-11.0)
[2020-01-13 06:00] LABS: ALBUMIN 2.7 GM/DL (3.2-4.5); CHLORIDE 109 MMOL/L (98-107); POTASSIUM 3.3 MMOL/L (3.6-5.0); SODIUM 139 MMOL/L (135-145)
[2020-01-13 06:01] LABS: CALCIUM 7.2 MG/DL (8.5-10.1)
[2020-01-13 06:02] LABS: GLUCOSE 83 MG/DL (70-105); TOTAL PROTEIN 5.4 GM/DL (6.4-8.2)
[2020-01-13 06:03] LABS: CARBON DIOXIDE 21 MMOL/L (21-32)
[2020-01-13 06:04] LABS: BILIRUBIN,TOTAL 0.3 MG/DL (0.1-1.0)
[2020-01-13 06:06] LABS: ALKALINE PHOSPHATASE 72 U/L (40-136); CREATININE SERUM 0.62 MG/DL (0.60-1.30); GFR ESTIMATED > 60
[2020-01-13 06:07] LABS: BUN/CREATININE RATIO 10
[2020-01-13 06:09] LABS: ALANINE AMINOTRANSFERASE 12 U/L (0-55)
[2020-01-13 06:24] LABS: BAND NEUTROPHILS 9 %; HYPOCHROMASIA SLIGHT; LYMPHOCYTES % (MANUAL) 6 %; MONOCYTES % (MANUAL) 5 %; NEUTROPHILS % (MANUAL) 80 %
[2020-01-13] MEDS: ACETAMINOPHEN 325 MG TABLET PO PRN ×3 (06:44→22:41)
--- NOTE | 2020-01-13 10:25 | NUR ---
THIS RN PULLED AND CHARTED ALL A.M. MEDICATIONS FOR PRIMARY RN Katherine MONROY. THIS RN WILL BE THE RUNNER FOR THIS PATIENT THROUGHOUT THE DAY.
[2020-01-13 10:37] VITALS: BP 117/57
[2020-01-13] MEDS: IBUPROFEN 600 MG (MOTRIN) TAB PO PRN (11:28)
[2020-01-13] MEDS: ENOXAPARIN 40 MG/0.4 ML (LOVENOX) SYR SC SCH (12:23)
[2020-01-13 12:51] VITALS: BP 110/51
--- NOTE | 2020-01-13 13:00 | NUR ---
DR CALVIN NOTIFIED OF CURRENT VS. HR 107. TEMP 104. PT REPORTS PAIN IN LEFT FLANK AREA 02/14. NEW ORDERS PLACED IN EMAR. X1 LR BOLUS STARTED
[2020-01-13] MEDS ORDERED: LACTATED RINGERS 1,000 ML IV SCH (13:15)
[2020-01-13] MEDS: fentaNYL INJECTION 100 MCG/2 ML AMP IVP PRN ×2 (13:23→22:46)
--- NOTE | 2020-01-13 14:43 | NUR ---
THIS RN PULLED LOVENOX BUT DID NOT SCAN THE ITEM BEFORE GIVING IT TO GUADALUPE LOPEZ. THIS RN WILL JUST CHART MEDICATION WITHOUT SCANNING THIS TIME.
[2020-01-13] MEDS ORDERED: IBUP-1780 PO (14:55)
[2020-01-13] MEDS ORDERED: SERT100T8 PO (14:55)
--- NOTE | 2020-01-13 14:57 | NUR ---
SPOKE WITH PATIENT (CALLED ON ROOM PHONE), WENT THROUGH EXTERNAL MED HISTORY AND CALLED [facility] IN [place] TO COMPLETE MED REC. SERTRALINE 100MG: DIRECTIONS SAY TO TAKE 1 TAB DAILY, BUT THE PATIENT STATES SHE TAKES TAB AT HS. TAKES NO OTC MEDS
[2020-01-13] MEDS: cefTRIAXone 1,000 MG/SWFI 10 ML IV PUSH IV SCH ×2 (16:30)
--- NOTE | 2020-01-13 16:51 | NUR ---
temperature after Tylenol was given is now 36.3
[2020-01-13 17:24] VITALS: BP 112/53
--- NOTE | 2020-01-13 17:51 | NUR ---
SPOKE WITH DR. CALVIN ABOUT NEGATIVE COVID RESULTS. NEW ORDERS TO MOVE PATIENT OFF THE COVID-19 UNIT, TO ROOM 419-1 AT THIS TIME.
--- NOTE | 2020-01-13 18:28 | History & Physical ---
HPI History of Present Illness: 29 yo F that is 4 week that is admitted for fever and abdominal pain. States that she had some pain with urination last week but that went away. Yesterday she started having chills and fever. Denies any cough or shortness of breath. No sick contacts and no travel. Patient has had decreased appetite for the last 2 days. She has had decreased urine output. CT scan in ER reveal pyelonephritis Source: patient Exam Limitations: no limitations Date seen by provider: Jan 13, 2020 Time Seen by Provider: 11:25 Attending Physician Lorena Welsh MD PCP [place] Consult Date of Admission Jan 12, 2020 at 18:13 Home Medications Home Medications Reviewed patient Home Medication Reconciliation performed by pharmacy medication reconciliations bench technician and/or nursing. Patients Allergies have been reviewed. Allergies Coded Allergies: levofloxacin (Unverified Allergy, Mild, N/V, 10/20/18) [id number]-[id number] Hx Patient Social History Living Status: Lives at home with and daughter Alcohol Use: Denies Use Recreational Drug Use: No Drug of Choice: cannibus Smoking Status: Never a Smoker 2nd Hand Smoke Exposure: Yes Recent Foreign Travel: No Contact w/other who traveled: No Recent Hopitalizations: Yes ( DECEMBER 12) Recent Infectious Disease Expo: No Immunizations Up To Date Tetanus Booster (TDap): Less than 5yrs Date of Influenza Vaccine: May 06, 2014 Past Medical History Anemia of morbid obesity s/p lab band and bariatric surgery Depression hx of DM type 2 and HTN prior to weight loss surgery hx of ear tubes, appendectomy, T&A, cholecystectomy Family Medical History Family History: Family history: Arthritis 03 MOTHER Family history: Asthma 03 FATHER Family history: Diabetes mellitus 03 MOTHER HALF SISTER Family history: Glaucoma 03 MOTHER Family history: Hypertension 03 FATHER Family history: Osteoporosis 03 MOTHER Family history: Thyroid disorder 09 SISTER (THYROIDECTOMY) Headache 03 MOTHER 09 SISTER Hearing loss 03 MOTHER History of - respiratory disease 03 FATHER Hypercholesterolemia 03 FATHER No Family History of: Abdominal aortic aneurysm Cristian's disease Alcoholism Aphasia Cancer Cancer of colon Cataract Chest pain Congenital heart disease Congestive heart failure Cystic fibrosis Dementia Dysphagia Family history: Allergy Family history: Alzheimer's disease Family history: Breast disease Family history: Cardiovascular disease Family history: Coronary thrombosis Family history: Gastrointestinal disease Heart disease Hereditary disease History of - anemia History of - disorder History of drug abuse Human immunodeficiency virus (HIV) seropositivity Infertile Kidney disease Malignant neoplasm of lung Myocardial infarction Parkinson's disease Prostate cancer Psychotic disorder Seizure disorder Stroke Tuberculosis Visual impairment Review of Systems (CHC) Constitutional: chills, fever, malaise EENTM: no symptoms reported; No mouth pain, No nose congestion, No throat pain Respiratory: no symptoms reported; No cough, No dyspnea on exertion, No short of breath Cardiovascular: no symptoms reported; No chest pain, No edema, No palpitations Gastrointestinal: abdominal pain, loss of appetite, nausea; No vomiting Genitourinary: dysuria; No frequency, No hematuria : No Musculoskeletal: back pain; No joint pain, No muscle pain Skin: no symptoms reported; No lesions, No rash Psychiatric/Neurological: No Symptoms Reported; Denies Headache, Denies Numbness Reviewed Test Results Reviewed Test Results Lab Laboratory Tests Test 01/13/20 05:29 01/13/20 14:23 Range/Units White Blood Count 15.9 H 4.3-11.0 10^3/uL Red Blood Count 3.77 L 4.35-5.85 10^6/uL Hemoglobin 9.6 L 11.5-16.0 G/DL Hematocrit 32 L 35-52 % Mean Corpuscular Volume 84 80-99 FL Mean Corpuscular Hemoglobin 26 25-34 PG Mean Corpuscular Hemoglobin Concent 30 L 32-36 G/DL Red Cell Distribution Width 19.3 H 10.0-14.5 % Platelet Count 158 130-400 10^3/uL Mean Platelet Volume 10.6 H 7.4-10.4 FL Neutrophils (%) (Auto) 88 H 42-75 % Lymphocytes (%) (Auto) 6 L 12-44 % Monocytes (%) (Auto) 7 0-12 % Eosinophils (%) (Auto) 0 0-10 % Basophils (%) (Auto) 0 0-10 % Neutrophils # (Auto) 13.9 H 1.8-7.8 X 10^3 Lymphocytes # (Auto) 0.9 L 1.0-4.0 X 10^3 Monocytes # (Auto) 1.0 0.0-1.0 X 10^3 Eosinophils # (Auto) 0.0 0.0-0.3 10^3/uL Basophils # (Auto) 0.0 0.0-0.1 10^3/uL Neutrophils % (Manual) 80 % Lymphocytes % (Manual) 6 % Monocytes % (Manual) 5 % Band Neutrophils 9 % Hypochromasia SLIGHT Sodium Level 139 135-145 MMOL/L Potassium Level 3.3 L 3.6-5.0 MMOL/L Chloride Level 109 H 98-107 MMOL/L Carbon Dioxide Level 21 21-32 MMOL/L Anion Gap 9 5-14 MMOL/L Blood Urea Nitrogen 6 L 7-18 MG/DL Creatinine 0.62 0.60-1.30 MG/DL Estimat Glomerular Filtration Rate > 60 BUN/Creatinine Ratio 10 Glucose Level 83 70-105 MG/DL Calcium Level 7.2 L 8.5-10.1 MG/DL Corrected Calcium 8.2 L 8.5-10.1 MG/DL Total Bilirubin 0.3 0.1-1.0 MG/DL Aspartate Amino Transf (AST/SGOT) 13 5-34 U/L Alanine Aminotransferase (ALT/SGPT) 12 0-55 U/L Alkaline Phosphatase 72 40-136 U/L Total Protein 5.4 L 6.4-8.2 GM/DL Albumin 2.7 L 3.2-4.5 GM/DL Lactic Acid Level 2.13 *H 0.50-2.00 MMOL/L Physical Exam-(CHC) Physical Exam Vital Signs VS - Last 72 Hours, by Label 01/12/20 01/12/20 01/12/20 01/12/20 16:04 17:15 18:50 19:08 Temp 37.5 38.3 38.9 Pulse 120 95 Resp 18 18 B/P (MAP) 137/70 (92) 126/64 (92) Pulse Ox 94 97 01/12/20 01/12/20 01/12/20 01/12/20 19:30 19:30 19:30 21:04 Temp 39.0 39.0 37.6 Pulse 97 97 Resp 18 18 B/P (MAP) 127/70 127/70 (89) Pulse Ox 94 92 94 O2 Delivery Room Air Room Air Room Air 01/12/20 01/12/20 01/13/20 01/13/20 21:04 23:23 04:45 09:00 Temp 37.6 37.4 37.0 Pulse 92 87 Resp 18 18 B/P (MAP) 117/59 (78) 98/54 (69) Pulse Ox 92 98 98 O2 Delivery Room Air Room Air Room Air 01/13/20 01/13/20 01/13/20 01/13/20 10:37 12:48 12:51 13:32 Temp 37.0 40.0 40.0 39.0 Pulse 92 107 94 Resp 20 B/P (MAP) 117/57 (77) 110/51 (70) Pulse Ox 98 97 96 O2 Delivery Room Air Room Air 01/13/20 17:24 Temp 36.6 Pulse 76 Resp 22 B/P (MAP) 112/53 (72) Pulse Ox 96 O2 Delivery Room Air Capillary Refill : Less Than 3 Seconds General Appearance: WD/WN, mild distress HEENT: PERRL/EOMI Neck: non-tender, full range of motion, supple, normal inspection Respiratory: chest non-tender, lungs clear, normal breath sounds, no respira tory distress, no accessory muscle use Cardiovascular: normal peripheral pulses, no edema, no murmur, tachycardia Gastrointestinal: normal bowel sounds, non tender, soft, no organomegaly Back: CVA tenderness (L) Extremities: normal range of motion, non-tender, normal inspection, no pedal edema, no calf tenderness, normal capillary refill Neurologic/Psychiatric: 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 as tested, no motor/sensory deficits, alert, normal mood/affect, oriented x 3 Skin: normal color, warm/dry Lymphatic: no adenopathy Assessment/Plan Assessment/Plan Admission Status: Inpatient Order (span 2 midnights) Reason for Inpatient Admission: Patient septic and requiring IVFs and IV antibiotics, unable to tolerate PO antibiotics at this time (1) Sepsis Status: Acute Assessment & Plan: - Sepsis upon admission, IVFs completed, bolus given today with fever, LA redrawn, Blood cultures pending, Urine cultures growing Klebsiella, Rocephin D2 Qualifiers: Qualified Codes: A41.9 - Sepsis, unspecified organism (2) Pyelonephritis Status: Acute (3) Normocytic anemia Status: Chronic Assessment & Plan: - Likely 2/2 post , will get iron studies (4) Hypokalemia Status: Acute Assessment & Plan: - Replace and repeat BMP in AM (5) DVT prophylaxis Status: Acute Assessment & Plan: - Lovenox (6) S/P bariatric surgery Status: Acute Clinical Quality Measures DVT/VTE Risk/Contraindication: Risk Factor Score Per Nursin RFS Level Per Nursing on Admit: 2=Moderate LORENA WELSH MD Jan 13, 2020 18:27
[2020-01-13] MEDS: POTASSIUM CL 10MEQ/50ML IVPB 50 ML IV SCH ×2 (18:54→21:05)
[2020-01-13 21:00] VITALS: BP 108/65
[2020-01-14] VITALS (7 sets, daily range): BP systolic 105–130; BP diastolic 53–80
[2020-01-14] MEDS: ENOXAPARIN 40 MG/0.4 ML (LOVENOX) SYR SC SCH ×2 (02:06→13:08)
[2020-01-14] MEDS: fentaNYL INJECTION 100 MCG/2 ML AMP IVP PRN (02:07)
[2020-01-14] MEDS: IBUPROFEN 600 MG (MOTRIN) TAB PO PRN ×2 (02:07→20:29)
[2020-01-14] MEDS: LACTATED RINGERS 1,000 ML IV SCH ×3 (03:22→18:33)
[2020-01-14] MEDS: HYDROcodone/APAP 7.5 MG/325 MG (LORTAB, LORCET PLUS) TABLET PO PRN ×2 (13:24→20:29)
--- NOTE | 2020-01-14 16:25 | Progress Note ---
Subjective Subjective/Events-last exam Patient states that she is still having quite a bit of pain. Tolerating some PO. Good UOP. Last fever this AM 0200 Review of Systems Pulmonary: No Dyspnea, No Cough Cardiovascular: No: Chest Pain, Palpitations, Edema Gastrointestinal: Nausea, Abdominal Pain; No: Diarrhea, Constipation Genitourinary: No Dysuria; Frequency; No Hematuria Musculoskeletal: back pain Neurological: Weakness Focused Exam Lactate Level 01/12/20 15:33: Lactic Acid Level 1.01 01/13/20 14:23: Lactic Acid Level 2.13*H 01/13/20 19:55: Lactic Acid Level 0.87 Objective Exam Last Set of Vital Signs Vital Signs Date Time Temp Pulse Resp B/P (MAP) Pulse Ox O2 Delivery O2 Flow Rate FiO2 01/14/20 13:55 36.2 01/14/20 12:00 75 18 118/69 (85) 97 Room Air Capillary Refill : Less Than 3 Seconds I&O Intake and Output 01/14/20 00:00 Intake Total 4535 ml Output Total 1875 ml Balance 2660 ml Intake Oral 1435 ml IV Total 3100 ml Output Urine Total 1875 ml General: Alert, Oriented X3, Cooperative, No Acute Distress HEENT: Mucous Memb Moist/[place] Lungs: Clear to Auscultation, Normal Air Movement Heart: Regular Rate, No Murmurs Abdomen: Normal Bowel Sounds, Other (LLQ and flank pain, + CVA ttp, no rebound or guarding) Extremities: No Edema, No Tenderness/Swelling Skin: No Rashes, No Breakdown Neuro: Normal Speech, Sensation Intact, Cranial Nerves 3-12 NL Results/Procedures Lab Laboratory Tests 01/13/20 19:55: Lactic Acid Level 0.87 Microbiology 01/13/20 Blood Culture - Preliminary, Resulted No growth 01/12/20 Urine Culture - Final, Complete Gram Pos Mixed Bacterial Radha Enterobacter cloacae complex Assessment/Plan Assessment/Plan (1) Sepsis Status: Resolved Assessment & Plan: - Sepsis upon admission, IVFs completed, bolus given today with fever, LA redrawn, Blood cultures pending, Urine cultures growing Klebsiella, Rocephin D2 01/13: Sepsis on admission, resolved today, LA resolved, HDS, blood culture NGTD, urine with Enterobacter S-Rocephin D3 Qualifiers: Qualified Codes: A41.9 - Sepsis, unspecified organism (2) Pyelonephritis Status: Acute (3) Normocytic anemia Status: Chronic Assessment & Plan: - Likely 2/2 post , will get iron studies (4) Hypokalemia Status: Acute Assessment & Plan: - Replace and repeat BMP in AM 01/13: Replace 40 mEq today, mag in AM (5) DVT prophylaxis Status: Acute Assessment & Plan: - Lovenox (6) S/P bariatric surgery Status: Acute Clinical Quality Measures DVT/VTE Risk/Contraindication: Risk Factor Score Per Nursin RFS Level Per Nursing on Admit: 2=Moderate LORENA CALVIN MD Jan 14, 2020 16:25
[2020-01-14] MEDS ORDERED: KCL 20 MEQ TAB (K-DUR) PO NR (16:30)
[2020-01-14] MEDS: cefTRIAXone 1,000 MG/SWFI 10 ML IV PUSH IV SCH ×2 (17:03)
[2020-01-15] MEDS: ENOXAPARIN 40 MG/0.4 ML (LOVENOX) SYR SC SCH (00:15)
[2020-01-15] MEDS: LACTATED RINGERS 1,000 ML IV SCH (00:16)
[2020-01-15 03:35] VITALS: BP 127/84
[2020-01-15] MEDS: HYDROcodone/APAP 7.5 MG/325 MG (LORTAB, LORCET PLUS) TABLET PO PRN ×2 (03:43→10:08)
[2020-01-15 06:25] LABS: BASOPHILS % (AUTO) 0 % (0-10); EOSINOPHILS # (AUTO) 0.1 10^3/uL (0.0-0.3); EOSINOPHILS % (AUTO) 2 % (0-10); HEMATOCRIT 29 % (35-52); HEMOGLOBIN 8.5 G/DL (11.5-16.0); LYMPHOCYTES # (AUTO) 1.5 X 10^3 (1.0-4.0); LYMPHOCYTES % (AUTO) 23 % (12-44); MEAN CORPUSCULAR HEMOGLOBIN 25 PG (25-34); MEAN CORPUSCULAR HGB CONC 30 G/DL (32-36); MEAN CORPUSCULAR VOLUME 85 FL (80-99); MONOCYTES # (AUTO) 0.7 X 10^3 (0.0-1.0); MONOCYTES % (AUTO) 10 % (0-12); NEUTROPHILS # (AUTO) 4.2 X 10^3 (1.8-7.8); NEUTROPHILS % (AUTO) 65 % (42-75); PLATELET COUNT 128 10^3/uL (130-400); RED CELL DISTRIBUTION WIDTH 19.5 % (10.0-14.5); WHITE BLOOD COUNT 6.4 10^3/uL (4.3-11.0)
[2020-01-15 06:50] LABS: ALBUMIN 2.6 GM/DL (3.2-4.5); CHLORIDE 109 MMOL/L (98-107)
[2020-01-15 06:51] LABS: POTASSIUM 3.7 MMOL/L (3.6-5.0); SODIUM 142 MMOL/L (135-145)
[2020-01-15 06:52] LABS: CALCIUM 7.9 MG/DL (8.5-10.1)
[2020-01-15 06:53] LABS: GLUCOSE 72 MG/DL (70-105); TOTAL PROTEIN 5.5 GM/DL (6.4-8.2)
[2020-01-15 06:54] LABS: CARBON DIOXIDE 24 MMOL/L (21-32)
[2020-01-15 06:55] LABS: BILIRUBIN,TOTAL 0.2 MG/DL (0.1-1.0)
[2020-01-15 06:56] LABS: ALKALINE PHOSPHATASE 72 U/L (40-136)
[2020-01-15 06:57] LABS: CREATININE SERUM 0.54 MG/DL (0.60-1.30); GFR ESTIMATED > 60
[2020-01-15 06:58] LABS: BUN/CREATININE RATIO 15
[2020-01-15 06:59] LABS: ALANINE AMINOTRANSFERASE 14 U/L (0-55); MAGNESIUM 1.6 MG/DL (1.6-2.4)
[2020-01-15 08:00] VITALS: BP 126/71
--- NOTE | 2020-01-15 09:12 | Discharge Summary ---
Diagnosis/Chief Complaint Date of Admission Jan 12, 2020 at 18:13 Date of Discharge 01/15/2020 Admission Diagnosis Admission Diagnosis Sepsis Pyelonephritis Morbid Obesity Normocytic Anemia Hypokalemia Discharge Diagnosis See Below Problems/Diagnosis: (1) Sepsis Assessment & Plan: - Sepsis upon admission, IVFs completed, bolus given today with fever, LA redrawn, Blood cultures pending, Urine cultures growing Klebsiella, Rocephin D2 01/13: Sepsis on admission, resolved today, LA resolved, HDS, blood culture NGTD, urine with Enterobacter S-Rocephin D3 Qualifiers: Qualified Codes: A41.9 - Sepsis, unspecified organism Status: Resolved Resolution Date/Time: 01/14/20 @ 16:23 (2) Pyelonephritis Assessment & Plan: 01/14: Fever curve improved, afebrile 24hrs, will sent home with PO antibiotics Status: Acute (3) Normocytic anemia Assessment & Plan: - Likely 2/2 post , will get iron studies Status: Chronic (4) Hypokalemia Assessment & Plan: - Replace and repeat BMP in AM 01/13: Replace 40 mEq today, mag in AM Status: Acute (5) DVT prophylaxis Assessment & Plan: - Lovenox Status: Acute (6) S/P bariatric surgery Status: Acute Chief Complaint/HPI Chief Complaint/HPI 29 yo F that is 4 week that is admitted for fever and abdominal pain. States that she had some pain with urination last week but that went away. Yesterday she started having chills and fever. Denies any cough or shortness of breath. No sick contacts and no travel. Patient has had decreased appetite for the last 2 days. She has had decreased urine output. CT scan in ER reveal pyelonephritis Discharge Summary-Simple/Stand Consultations Discharge Physical Examination Allergies: Coded Allergies: levofloxacin (Unverified Allergy, Mild, N/V, 10/20/18) Vitals & I&Os Vital Sign - Last 12Hours Date Time Temp Pulse Resp B/P (MAP) Pulse Ox O2 Delivery O2 Flow Rate FiO2 01/15/20 03:35 36.8 68 16 127/84 (98) 99 Room Air Intake and Output 01/15/20 00:00 Intake Total 2940 ml Output Total 2100 ml Balance 840 ml General Appearance: Alert, Oriented X3, Cooperative, No Acute Distress HEENT: Mucous Memb Moist/[place] Respiratory: Clear to Auscultation, Normal Air Movement Cardiovascular: Regular Rate, No Murmurs Abdominal: Normal Bowel Sounds, Soft, Other (Mild LLQ ttp and L flank pain: Improved) Extremities: No Edema, No Tenderness/Swelling Neuro: Normal Speech, Strength at 5/5 X4 Ext, Sensation Intact, Cranial Nerves 3-12 NL Hospital Course Was the Problem List Reviewed?: Yes See final discharge diagnosis. Discussion & Recommendations 29 yo F 4 week post that presented with left flank pain and found to have pyelonephritis. Treated with IV antibiotics. Cultures positive for klebsiella and enterococcus. Will transition to PO antibiotics and she will have close f.u in clinic next week. Discharge Condition at discharge stable Instructions to patient/family Please see electronic discharge instructions given to patient. Discharge Medications Reviewed and agree with Discharge Medication list on patient's Discharge Instruction sheet Clinical Quality Measures DVT/VTE Risk/Contraindication: Risk Factor Score Per Nursin RFS Level Per Nursing on Admit: 2=Moderate LORENA CALVIN MD Jan 15, 2020 09:11
[2020-01-15] MEDS ORDERED: HYDR-34 PO (09:14)
[2020-01-15] MEDS ORDERED: CEFD300C3 PO (09:14)
--- NOTE | 2020-01-15 09:16 | Discharge Summary ---
Discharge [facility] Reconcile Patient Problems Problems Reviewed?: Yes Discharge Medications New, Converted or Re-Newed RX: RX on Chart New Medications: Cefdinir (Cefdinir) 300 Mg Capsule 300 MG PO BID, #14 CAP Hydrocodone Bit/Acetaminophen (HYDROcodone/APAP 7.5/325 TAB) 1 Ea Tablet 1 EA PO Q6HR PRN for PAIN-MODERATE (5-7), #20 TAB Continued Medications: Ibuprofen (Ibuprofen) 800 Mg Tablet 800 MG PO Q6H PRN for PAIN-MILD, TAB Sertraline HCl (Sertraline HCl) 100 Mg Tablet 50 MG PO HS, TAB PATIENT TAKES OF A 100MG TAB Patient Instructions Goal/Follow Up Appt: F/u with Dr Welsh next week 01/20 @ 2362 Patient Instructions: - Make sure to complete antibiotics - Push oral hydration Return to The Hospital For: - Fever or increased pain Activity & Diet Discharge Diet: No Restrictions Activity as Tolerated: Yes LORENA WELSH MD Jan 15, 2020 09:16
[2020-01-15 10:11] VITALS: BP 126/71
== END 2020-01-15 10:47 | disposition home or self-care (01) | DRG 776 ==
LOC: EDUNIT# 15:11 → ER 15:13 → 4TH 18:13
PROVIDERS: ADMIT Family Medicine; ATTEND Family Medicine
DX: O85 Puerperal sepsis (principal); N12 Tubulo-interstitial nephritis, not specified as acute or chronic; D64.9 Anemia, unspecified; E87.6 Hypokalemia; O99.03 Anemia complicating the puerperium; O99.285 Endocrine, nutritional and metabolic diseases complicating the puerperium
CPT/HCPCS: 36415; 71045; 71275; 80053; 81000; 83605; 83735; 85007; 85025; 85027; 86141; 87040; 87077; 87088; 87186; 87635

== ENCOUNTER → 2021-01-20 | Outpatient (CLI) | payer BC ==
[~2021-01-20] MED LIST changes: +CEFD300C3 PO; +HYDR-34 PO; +SERT-413 PO; +SERT-414 PO; -SERT50TA9 PO; -SULF1TAB35 PO
--- NOTE | 2021-01-20 14:43 | Diagnostic Imaging Report ---
INDICATION: Evaluate position, size and amniotic fluid. TECHNIQUE: Multiple real-time grayscale images were obtained over the gravid uterus. COMPARISON: None FINDINGS: There is a single live fetus in a cephalic presentation. heart rate was recorded at 138 bpm. Placenta is posterior. Amniotic fluid index is 19.6 cm. Biometrical measurements are as follows: Biparietal 8.94 cm, age 36 weeks 2 days. Head circumference 33.28 cm, age 38 weeks 0 days. Abdominal circumference 33.97 cm, age 38 weeks 0 days. Femur length 7.04 cm, age 36 weeks 1 days. Sonographic estimate age: 37 weeks 1 days. Sonographic estimated date of delivery: 02/09/2021. Estimated Weight: 3162 gm (+/- 462 gm). LMP percentile: 31%. heart rate: 138 beats per minute. number: 1 of 1. IMPRESSION: Single live IUP at 37 weeks gestational age. No complicating features are detected. Dictated by: Dictated on workstation # [id number]
== END ==
LOC: RAD 13:30
PROVIDERS: ATTEND Obstetrics & Gynecology
DX: O09.893 Supervision of other high risk pregnancies, third trimester (principal); Z3A.37 37 weeks gestation of pregnancy
CPT/HCPCS: 76805

== ENCOUNTER 2021-01-26 06:49 | Outpatient (CLI) | payer BC ==
[~2021-01-26] VITALS: Ht 167.7 cm; Wt 145.0 kg
[2021-01-26] MEDS ORDERED: PNV1TABL81 PO (12:39)
[2021-01-28] MEDS ORDERED: DCS100C PO (08:41)
[2021-01-28] MEDS ORDERED: ACET-93 PO (08:41)
[2021-01-28] MEDS ORDERED: FERR325T24 PO (08:41)
[2021-01-28] MEDS ORDERED: ENOX60DI7 SQ (08:41)
[2021-01-28] MEDS ORDERED: OXC5T PO (08:41)
[2021-01-28] MEDS ORDERED: IBUP-844 PO (08:41)
[2021-01-29] MEDS ORDERED: FURO-125 PO (06:51)
== END 2021-01-26 12:54 | disposition home or self-care (01) ==
LOC: PREOP 06:49
PROVIDERS: ATTEND Obstetrics & Gynecology
DX: Z01.818 Encounter for other preprocedural examination (principal)

== ENCOUNTER 2021-01-27 10:08 | Inpatient (IN) | payer BC ==
[2021-01-27] VITALS (11 sets, daily range): BP systolic 131–169; BP diastolic 62–91
[~2021-01-27] VITALS: Ht 157.2 cm; Wt 145.0 kg
[~2021-01-27 10:08] MED LIST changes: +PNV1TABL81 PO
[2021-01-27] MEDS: LACTATED RINGERS 1,000 ML IV PRN ×2 (10:58→11:57)
[2021-01-27 11:11] LABS: EOSINOPHILS % (AUTO) 0 % (0-10); MONOCYTES # (AUTO) 0.5 10^3/uL (0.0-1.0); MONOCYTES % (AUTO) 6 % (0-12)
[2021-01-27 11:13] LABS: BASOPHILS # (AUTO) 0.1 10^3/uL (0.0-0.1); BASOPHILS % (AUTO) 1 % (0-10); HEMATOCRIT 31 % (35-52); HEMOGLOBIN 8.6 g/dL (11.5-16.0); LYMPHOCYTES # (AUTO) 2.4 10^3/uL (1.0-4.0); LYMPHOCYTES % (AUTO) 25 % (12-44); MEAN CORPUSCULAR HEMOGLOBIN 23 pg (25-34); MEAN CORPUSCULAR HGB CONC 28 g/dL (32-36); MEAN CORPUSCULAR VOLUME 81 fL (80-99); MEAN PLATELET VOLUME 11.8 fL (9.0-12.2); NEUTROPHILS # (AUTO) 6.4 10^3/uL (1.8-7.8); NEUTROPHILS % (AUTO) 67 % (42-75); PLATELET COUNT 149 10^3/uL (130-400); WHITE BLOOD COUNT 9.5 10^3/uL (4.3-11.0)
[2021-01-27] MEDS ORDERED: CITRIC ACID/SOB CIT (BICITRA) 30 ML UDC PO ONE ×6 (11:15→11:30)
[2021-01-27] MEDS ORDERED: FAMOTIDINE 20MG/2ML IV (PEPCID) IV ONE ×6 (11:15→11:30)
[2021-01-27] MEDS ORDERED: LACTATED RINGERS 1,000 ML IV PRN ×9 (11:15)
[2021-01-27] MEDS ORDERED: CATHETER FLUSH 10 ML SYR IV PRN (11:15)
[2021-01-27] MEDS ORDERED: METOCLOPRAMIDE INJ 10 MG/2 ML (REGLAN) IV ONE ×5 (11:15)
[2021-01-27] MEDS ORDERED: ceFAZolin 2 GM IV Premixed 50 ML ONE (11:19)
[2021-01-27] MEDS ORDERED: FAMOTIDINE 20MG/2ML IV (PEPCID) ONE (11:20)
[2021-01-27] MEDS ORDERED: CITRIC ACID/SOB CIT (BICITRA) 30 ML UDC ONE (11:20)
[2021-01-27 11:24] LABS: BILIRUBIN,URINE NEGATIVE (NEGATIVE); CLARITY,URINE CLEAR; COLOR,URINE YELLOW; GLUCOSE, URINE (UA) NEGATIVE (NEGATIVE); KETONES,URINE TRACE (NEGATIVE); LEUKOCYTE ESTERASE ,URINE NEGATIVE (NEGATIVE); NITRITE,URINE NEGATIVE (NEGATIVE); PROTEIN,URINE NEGATIVE (NEGATIVE)
[2021-01-27 11:31] LABS: ANISOCYTOSIS SLIGHT; BAND NEUTROPHILS 1 %; EOSINOPHILS % (MANUAL) 1 %; HYPOCHROMASIA SLIGHT; LYMPHOCYTES % (MANUAL) 29 %; MICROCYTOSIS SLIGHT; MONOCYTES % (MANUAL) 3 %; NEUTROPHILS % (MANUAL) 66 %; POIKILOCYTOSIS SLIGHT; POLYCHROMASIA SLIGHT; SMUDGE CELLS SLIGHT
[2021-01-27 11:37] LABS: BACTERIA,URINE NEGATIVE /HPF; SQUAMOUS EPITHELIAL CELL,UR 0-2 /HPF; WBC,URINE 0-2 /HPF
[2021-01-27] MEDS: ceFAZolin 2 GM IV Premixed 50 ML IV ONE ×2 (11:57→12:43)
[2021-01-27] MEDS ORDERED: OXYTOCIN PRE-MIX DRIP 1,000 ML IV ONE (12:30)
[2021-01-27] MEDS ORDERED: fentaNYL INJ 100 MCG/2 ML AMP ONE (12:30)
[2021-01-27] MEDS ORDERED: ONDANSETRON 4 MG/2 ML (SDV) Z0FRAN ONE (12:30)
[2021-01-27] MEDS ORDERED: KETOROLAC 30 MG/ML VIAL ONE (12:30)
--- NOTE | 2021-01-27 12:32 | History & Physical-OB ---
OB - Chief Complaint & HPI Date/Time Date of Admission: Date of Admission: Jan 27, 2021 at 10:08 Date seen by a Provider: Jan 27, 2021 Time Seen by a Provider: 12:15 Chief Complaint/History OB-Reason for Admission/Chief: Onset of Labor Hx : 3 Hx Para: 1 Expected Date of Delivery: Jan 29, 2021 Gestational Age in Weeks: 39 Gestational Age in Days: 4 Indication for : desires repeat , other (Planned for TOLAC but cervix is unfavorable. Had CS for malpresentation previously so she has never labored. States was vertex but when water broke fetus "flipped".) Admission Nurse Assessment Rev: Yes History of Labs A+,- HIV - HBsAg- Rub I VDRL NR GBS - Hgb 8.[address] Welsh referred due to previous section. She opts for TOLAC but cervix is unfavorable and she does not meet the requirements for TOLAC In addition previous delivery was for malpresentation and she has never labored. She has morbid obesity with rapid increase in weight the last few weeks. However, no preeclampsia. BP was elevated on arrival but she is asymptomatic (no headache/visual changes) She started having contractions today so she is in very early labor but cervix is not dilated nor effaced. Allergies and Home Medications Allergies Coded Allergies: levofloxacin (Unverified Allergy, Mild, N/V, 10/20/18) Home Medications Pnv No.122/Iron/Folic Acid 1 Each Tablet, 1 EACH PO DAILY, (Reported) Last Action: Reviewed Sertraline HCl 100 Mg Tablet, 50 MG PO HS, (Reported) PATIENT TAKES OF A 100MG TAB Last Action: Reviewed Patient Home Medication List Home Medication List Reviewed: Yes OB - History Hx of Present Ultrasounds: Normal mid trimester US Obstetrical Complications: None Medical Complications: None Information Induced Hypertension: No Maternal Gestational Diabetes: No Hemorrhage: No Obstetrical History Hx : 3 Hx Para: 1 Hx # Term Pregnancies: 1 Hx # Pregnancies: 0 Number of Living Children: 1 Hx Termination: No Hx Total # of Abortions (Spona: 1 Hx Multiple Gestation: No Hx Ectopic : No Hx Stillbirth: No Hx Complication: No Hx Induced Hypertens: No Hx Maternal Gestational Diabet: No Hx Hemorrhage: No Delivery History Hx Dystocia: No Hx Forceps Assisted Delivery: No Hx Vacuum Extraction Assisted: No Hx Placenta Abnormality: No Hx Distress: No Hx Large For Gestational Age I: No Hx Small for Gestational Age I: No Hx Section: Yes Hx Vaginal Delivery Post C-Sec: No Hx Blood Disorders: No Adverse Rxn to Tranfusion: No (N/A) Patient Past Medical History Anemia of morbid obesity s/p lab band and bariatric surgery Depression hx of DM type 2 and HTN prior to weight loss surgery hx of ear tubes, appendectomy, T&A, cholecystectomy Social History/Family History Smoking Cessation: Never smoker 2nd Hand Smoke Exposure: Yes Significant Family Hx diabetes mellitus Mother Father hypertensive disorder Mother Father Sister malignant neoplasm of liver Mother recurrent hepatitis Mother hyperlipidemia Sister Immunizations Hepatitis A: No Hepatitis B: Yes Tetanus Booster (TDap): Less than 5yrs Date of Influenza Vaccine: May 06, 2014 Rubella: immune RPR/VDRL: Negative GBS Status: Negative HBsAG: Negative OB - Admission Exam Physical Exam Vitals: 168/80 161/91 P -58 HEENT: NCAT Heart: Rhythm Normal Lungs: Clear Abdomen: Other (extensive lower abdominal edema. ) Extremities: Edema (3+) Reflexes: Normal Heart Rate: 140's Accelerations: Accelerations Present Decelerations: No Decelerations Short Term Variability: Present Fpc Variability: Average (6-25) Contractions on Admission: 6-10 Minutes Apart Labs Laboratory Tests Test 01/27/21 10:48 Range/Units White Blood Count 9.5 4.3-11.0 10^3/uL Red Blood Count 3.82 3.80-5.11 10^6/uL Hemoglobin 8.6 L 11.5-16.0 g/dL Hematocrit 31 L 35-52 % Mean Corpuscular Volume 81 80-99 fL Mean Corpuscular Hemoglobin 23 L 25-34 pg Mean Corpuscular Hemoglobin Concent 28 L 32-36 g/dL Red Cell Distribution Width 21.2 H 10.0-14.5 % Platelet Count 149 130-400 10^3/uL Mean Platelet Volume 11.8 9.0-12.2 fL Immature Granulocyte % (Auto) 2 % Neutrophils (%) (Auto) 67 42-75 % Lymphocytes (%) (Auto) 25 12-44 % Monocytes (%) (Auto) 6 0-12 % Eosinophils (%) (Auto) 0 0-10 % Basophils (%) (Auto) 1 0-10 % Neutrophils # (Auto) 6.4 1.8-7.8 10^3/uL Lymphocytes # (Auto) 2.4 1.0-4.0 10^3/uL Monocytes # (Auto) 0.5 0.0-1.0 10^3/uL Eosinophils # (Auto) 0.0 0.0-0.3 10^3/uL Basophils # (Auto) 0.1 0.0-0.1 10^3/uL Immature Granulocyte # (Auto) 0.1 0.0-0.1 10^3/uL Neutrophils % (Manual) 66 % Lymphocytes % (Manual) 29 % Monocytes % (Manual) 3 % Eosinophils % (Manual) 1 % Band Neutrophils 1 % Smudge Cells SLIGHT Percent Immature Platelet Fraction 10.4 H 0.0-7.6 % Polychromasia SLIGHT Hypochromasia SLIGHT Poikilocytosis SLIGHT Basophilic Stippling SLIGHT Anisocytosis SLIGHT Microcytosis SLIGHT Urine Color YELLOW Urine Clarity CLEAR Urine pH 6.0 5-9 Urine Specific Britt 1.025 H 1.016-1.022 Urine Protein NEGATIVE NEGATIVE Urine Glucose (UA) NEGATIVE NEGATIVE Urine Ketones TRACE H NEGATIVE Urine Nitrite NEGATIVE NEGATIVE Urine Bilirubin NEGATIVE NEGATIVE Urine Urobilinogen 1.0 < = 1.0 MG/DL Urine Leukocyte Esterase NEGATIVE NEGATIVE Urine RBC (Auto) NEGATIVE NEGATIVE Urine RBC NONE /HPF Urine WBC 0-2 /HPF Urine Squamous Epithelial Cells 0-2 /HPF Urine Crystals NONE /LPF Urine Bacteria NEGATIVE /HPF Urine Casts NONE /LPF Urine Mucus NEGATIVE /LPF Urine Culture Indicated NO OB - Assessment/Plan/Diagnosis Assessment Assessment: section, other (elevated blood pressures (no proteinuria); extensive LE edema; morbid obesity) Admission Dx Previous section Admission Status: Inpatient Order (span 2 midnights) Reason for Inpatient Admission: section Plan Plan: Section (consents signed. Risks, bleeding, infection, injury to bowel, bladder and ureter. Prophylactic antibiotics and SCDs. No current evidence of sever preeclampsia, but will repeat blood pressures and labs and start Magnesium sulfate as indicated. ) MINERVA MCBRIDE DO Jan 27, 2021 12:32
[2021-01-27] MEDS: KETOROLAC 30 MG/ML VIAL IV SCH ×2 (13:45→19:48)
[2021-01-27] MEDS ORDERED: NALOXONE 0.4 MG/ML 1 ML (NARCAN) VIAL IV PRN ×2 (14:15)
[2021-01-27] MEDS ORDERED: morphine INJ 10 MG/ML 1ML (SYR OR VIAL) IVP ONE (14:15)
[2021-01-27] MEDS ORDERED: MEPERIDINE (DEMEROL) INJ 50 MG/ML IVP ONE (14:15)
[2021-01-27] MEDS ORDERED: diphenhydrAMINE 50 MG/ML INJ (BENADRYL) IV PRN (14:15)
[2021-01-27] MEDS ORDERED: ONDANSETRON 4 MG/2 ML (SDV) Z0FRAN IV PRN (14:15)
[2021-01-27] MEDS ORDERED: METOCLOPRAMIDE INJ 10 MG/2 ML (REGLAN) IV PRN (14:15)
[2021-01-27] MEDS ORDERED: ONDANSETRON 4 MG/2 ML (SDV) Z0FRAN IVP PRN ×2 (14:15→14:30)
--- NOTE | 2021-01-27 14:26 | Cesarean Section Operative ---
Procedure Procedure Note Pre-operative Diagnosis: Sobeida haines (30 /Para 3 / 1, Gestational Age 39 4/7 weeks, previous section, elevated blood pressures, contractions, polyhydramnios, anemia, edema Post-operative Diagnosis: same, meconium Procedure: Repeat low transverse section Physician: MINERVA MCBRIDE Estimated blood loss: 400 mL Disposition: stable Findings: Viable male , Apgars 8/9, weight 7 # 4 ounces, intact placenta, 3vc, normal appearing uterus, tubes, and ovaries, hand presentation, nuchal cord x 2, true knot Indications:Sobeida haines(30 /Para 3 / 1,Gestational Age 39 4/7 weeks, previous section, elevated blood pressures, contractions, polyhydramnios, anemia, edema Procedure Details: The patient was seen in pre-op and the procedure was discussed with the patient in full, including the risks, benefits, and alternatives. All questions were answered. The patient was taken to the operating room and a time out was performed, verifying patient and procedure. After spinal anesthesia was placed by our anesthesia colleagues, the patient was placed in the dorsal supine with leftward tilt for uterine displacement.~ Her abdomen was then prepped and draped in the typical sterile fashion. A Pfannenstiel skin incision was made using a scalpel and carried down through the underlying fascia. The fascia was incised in the midline and tented up using Liset clamps. On both the inferior and superior fascia side the rectus muscle was dissected off bluntly and sharply using [place] scissors. The peritoneum was identified and entered bluntly in the midline. This was then stretched laterally using manual strength. After entering the abdominal cavity and confirming lack of intraperitoneal adhesions, a large [place] retractor was placed and the lower uterine segment was visualized. A scalpel was utilized to make a low transverse uterine incision. Amniotomy was performed with an Allis clamp with return of clear fluid. The 's head was grasped and brought to the level of the incision. Fundal pressure was applied and was delivered without difficulty. Mouth and nares were suctioned with bulb suction. After the umbilical cord was clamped and cut, the infant was handed off to the pediatric staff. A sample of cord blood was then obtained. The placenta was delivered intact via uterine massage. The uterus was cleared of all clots and debris. The uterine incision was closed using 0 Vicryl in a running locked fashion. A second imbricated layer was placed using 0 Vicryl in a running fashion as well. The bilateral tubes and ovaries appeared normal. The abdominal gutters were cleared of all clots and debris. A final check of the uterine incision showed it to be hemostatic. The peritoneum was closed using 3-0 Vicryl in a running fashion. The fascia was closed with 0 PDS in a running fashion. The subcutaneous space was hemostatic, and irrigated. The subcutaneous space was closed with 0 Plain in several single interrupted stitches. The skin was then closed using 4-0 Monocryl in a running subcuticular fashion. The skin edges were reapproximated together and were hemostatic. A pressure dressing was applied. All sponge, lap and needle counts were correct at the end of the procedure per nursing. Vitals - Labs Vital Signs - I&O Vital Signs Date Time Temp Pulse Resp B/P (MAP) Pulse Ox O2 Delivery O2 Flow Rate FiO2 01/27/21 14:20 36.0 20 131/68 (89) 99 Room Air 01/27/21 14:20 Room Air 01/27/21 14:05 Room Air 01/27/21 14:05 36.2 20 138/70 (92) 99 Room Air 01/27/21 13:52 36.4 20 138/71 (93) 99 Room Air 01/27/21 13:52 Room Air 01/27/21 12:05 62 20 168/80 (109) 98 Room Air 01/27/21 11:35 57 20 98 Room Air 01/27/21 11:00 61 20 139/69 (92) 92 Room Air 01/27/21 10:35 36.0 57 20 169/91 (117) 99 Room Air 01/27/21 10:35 36.0 57 20 99 Room Air Labs Laboratory Tests 01/27/21 10:48: White Blood Count 9.5, Red Blood Count 3.82, Hemoglobin 8.6L, Hematocrit 31L, Mean Corpuscular Volume 81, Mean Corpuscular Hemoglobin 23L, Mean Corpuscular Hemoglobin Concent 28L, Red Cell Distribution Width 21.2H, Platelet Count 149, Mean Platelet Volume 11.8, Immature Granulocyte % (Auto) 2, Neutrophils (%) (Auto) 67, Lymphocytes (%) (Auto) 25, Monocytes (%) (Auto) 6, Eosinophils (%) (Auto) 0, Basophils (%) (Auto) 1, Neutrophils # (Auto) 6.4, Lymphocytes # (Auto) 2.4, Monocytes # (Auto) 0.5, Eosinophils # (Auto) 0.0, Basophils # (Auto) 0.1, Immature Granulocyte # (Auto) 0.1, Neutrophils % (Manual) 66, Lymphocytes % (Manual) 29, Monocytes % (Manual) 3, Eosinophils % (Manual) 1, Band Neutrophils 1, Smudge Cells SLIGHT, Percent Immature Platelet Fraction 10.4H, Polychromasia SLIGHT, Hypochromasia SLIGHT, Poikilocytosis SLIGHT, Basophilic Stippling SLIGHT, Anisocytosis SLIGHT, Microcytosis SLIGHT, Urine Color YELLOW, Urine Clar ity CLEAR, Urine pH 6.0, Urine Specific [place] 1.025H, Urine Protein NEGATIVE, Urine Glucose (UA) NEGATIVE, Urine Ketones TRACEH, Urine Nitrite NEGATIVE, Urine Bilirubin NEGATIVE, Urine Urobilinogen 1.0, Urine Leukocyte Esterase NEGATIVE, Urine RBC (Auto) NEGATIVE, Urine RBC NONE, Urine WBC 0-2, Urine Squamous Epithelial Cells 0-2, Urine Crystals NONE, Urine Bacteria NEGATIVE, Urine Casts NONE, Urine Mucus NEGATIVE, Urine Culture Indicated NO MINERVA MCBRIDE DO Jan 27, 2021 14:26
[2021-01-27] MEDS ORDERED: TETANUS,DIPTH,PERTUSS P/F (BOOSTRIX) 0.5 ML VIAL IM SCH (14:30)
[2021-01-27] MEDS ORDERED: OXYTOCIN PRE-MIX DRIP 500 ML IV SCH (14:30)
[2021-01-27] MEDS ORDERED: morphine INJ 4 MG/ML 1 ML (VIAL/SYRINGE) IVP PRN (14:30)
[2021-01-27] MEDS ORDERED: MEASLES,MUMPS,RUBELLA 1 EA INJ SC SCH (14:30)
[2021-01-27 15:05] LABS: ALBUMIN 2.4 GM/DL (3.2-4.5)
[2021-01-27 15:06] LABS: POTASSIUM 3.1 MMOL/L (3.6-5.0)
[2021-01-27 15:07] LABS: CALCIUM 7.1 MG/DL (8.5-10.1)
[2021-01-27 15:08] LABS: TOTAL PROTEIN 5.3 GM/DL (6.4-8.2)
[2021-01-27 15:10] LABS: BILIRUBIN,TOTAL 0.3 MG/DL (0.1-1.0)
[2021-01-27 15:12] LABS: CREATININE SERUM 0.51 MG/DL (0.60-1.30)
[2021-01-27 15:15] LABS: URIC ACID 4.2 MG/DL (2.6-7.2)
[2021-01-27] MEDS: ENOXAPARIN 60 MG/0.6 ML (LOVENOX) SYR SQ SCH (17:07)
[2021-01-27] MEDS: METOCLOPRAMIDE 10 MG (REGLAN) TAB PO SCH ×2 (17:08→23:18)
[2021-01-27] MEDS: FERROUS SULF 325 MG (IRON) TAB PO SCH (17:08)
[2021-01-27] MEDS: CATHETER FLUSH 10 ML SYR IV SCH (19:49)
[2021-01-27] MEDS: ACETAMINOPHEN 500 MG TAB (TYLENOL) PO SCH (21:09)
[2021-01-27] MEDS: DOCUSATE SODIUM 100 MG (COLACE) CAP PO SCH (21:09)
[2021-01-28] MEDS: KETOROLAC 30 MG/ML VIAL IV SCH ×2 (02:11→09:34)
[2021-01-28 04:11] VITALS: BP 138/60
[2021-01-28] MEDS ORDERED: MILK OF MAGNESIA 400 MG/5 ML 30 ML UDC PO PRN (05:00)
[2021-01-28 05:54] LABS: BASOPHILS % (AUTO) 0 % (0-10); EOSINOPHILS % (AUTO) 0 % (0-10); HEMATOCRIT 26 % (35-52); HEMOGLOBIN 7.5 g/dL (11.5-16.0); LYMPHOCYTES # (AUTO) 2.1 10^3/uL (1.0-4.0); LYMPHOCYTES % (AUTO) 18 % (12-44); MEAN CORPUSCULAR HEMOGLOBIN 23 pg (25-34); MEAN CORPUSCULAR HGB CONC 29 g/dL (32-36); MEAN CORPUSCULAR VOLUME 80 fL (80-99); MEAN PLATELET VOLUME 11.1 fL (9.0-12.2); MONOCYTES # (AUTO) 0.9 10^3/uL (0.0-1.0); MONOCYTES % (AUTO) 7 % (0-12); NEUTROPHILS # (AUTO) 8.8 10^3/uL (1.8-7.8); NEUTROPHILS % (AUTO) 74 % (42-75); PLATELET COUNT 135 10^3/uL (130-400); WHITE BLOOD COUNT 11.9 10^3/uL (4.3-11.0)
[2021-01-28] MEDS: ACETAMINOPHEN 500 MG TAB (TYLENOL) PO SCH ×3 (05:56→23:37)
[2021-01-28] MEDS: METOCLOPRAMIDE 10 MG (REGLAN) TAB PO SCH ×4 (05:56→23:37)
[2021-01-28] MEDS: CATHETER FLUSH 10 ML SYR IV SCH (05:58)
[2021-01-28] MEDS: ENOXAPARIN 60 MG/0.6 ML (LOVENOX) SYR SQ SCH ×2 (05:58→17:01)
[2021-01-28 06:26] LABS: ALBUMIN 2.1 GM/DL (3.2-4.5); POTASSIUM 3.6 MMOL/L (3.6-5.0)
[2021-01-28 06:28] LABS: CALCIUM 6.9 MG/DL (8.5-10.1)
[2021-01-28 06:29] LABS: TOTAL PROTEIN 4.8 GM/DL (6.4-8.2)
[2021-01-28 06:31] LABS: BILIRUBIN,TOTAL 0.3 MG/DL (0.1-1.0)
[2021-01-28 06:32] LABS: CREATININE SERUM 0.54 MG/DL (0.60-1.30)
[2021-01-28] MEDS ORDERED: IRON SUCROSE 200 MG/10 ML (VENOFER) VIAL IV ONE (08:30)
--- NOTE | 2021-01-28 08:32 | Postpartum Progress Note ---
Post Op Post-operative Day #1 s/p RLTCS blood pressures improved since delivery, but still labile. Labs not consistent with preeclampsia. Lovenox and SCDs for DVT prophylaxis Subjective: Patient is without complaints. Ambulating, voiding after hartmann removed. Tolerating a regular diet without nausea or vomiting. Normal lochia. Pain is well controlled with oral pain medications. Passing flatus. breast feeding. Objective: 01/27/21 01/27/21 01/28/21 21:22 23:31 04:11 Temp 36.8 36.4 Pulse 87 80 Resp 20 20 B/P (MAP) 146/64 (91) 138/60 (86) Pulse Ox 99 97 98 O2 Delivery Room Air Room Air Room Air 01/28/21 00:00 Intake Total 50 ml Output Total 600 ml Balance -550 ml Laboratory Tests Test 01/27/21 10:48 01/27/21 14:43 01/28/21 05:40 Range/Units White Blood Count 9.5 11.9 H 4.3-11.0 10^3/uL Red Blood Count 3.82 3.29 L 3.80-5.11 10^6/uL Hemoglobin 8.6 L 7.5 L 11.5-16.0 g/dL Hematocrit 31 L 26 L 35-52 % Mean Corpuscular Volume 81 80 80-99 fL Mean Corpuscular Hemoglobin 23 L 23 L 25-34 pg Mean Corpuscular Hemoglobin Concent 28 L 29 L 32-36 g/dL Red Cell Distribution Width 21.2 H 21.1 H 10.0-14.5 % Platelet Count 149 135 130-400 10^3/uL Mean Platelet Volume 11.8 11.1 9.0-12.2 fL Immature Granulocyte % (Auto) 2 1 % Neutrophils (%) (Auto) 67 74 42-75 % Lymphocytes (%) (Auto) 25 18 12-44 % Monocytes (%) (Auto) 6 7 0-12 % Eosinophils (%) (Auto) 0 0 0-10 % Basophils (%) (Auto) 1 0 0-10 % Neutrophils # (Auto) 6.4 8.8 H 1.8-7.8 10^3/uL Lymphocytes # (Auto) 2.4 2.1 1.0-4.0 10^3/uL Monocytes # (Auto) 0.5 0.9 0.0-1.0 10^3/uL Eosinophils # (Auto) 0.0 0.0 0.0-0.3 10^3/uL Basophils # (Auto) 0.1 0.0 0.0-0.1 10^3/uL Immature Granulocyte # (Auto) 0.1 0.1 0.0-0.1 10^3/uL Neutrophils % (Manual) 66 % Lymphocytes % (Manual) 29 % Monocytes % (Manual) 3 % Eosinophils % (Manual) 1 % Band Neutrophils 1 % Smudge Cells SLIGHT Percent Immature Platelet Fraction 10.4 H 0.0-7.6 % Polychromasia SLIGHT Hypochromasia SLIGHT Poikilocytosis SLIGHT Basophilic Stippling SLIGHT Anisocytosis SLIGHT Microcytosis SLIGHT Urine Color YELLOW Urine Clarity CLEAR Urine pH 6.0 5-9 Urine Specific [place] 1.025 H 1.016-1.022 Urine Protein 16 H 6-12 MG/DL Urine Glucose (UA) NEGATIVE NEGATIVE Urine Ketones TRACE H NEGATIVE Urine Nitrite NEGATIVE NEGATIVE Urine Bilirubin NEGATIVE NEGATIVE Urine Urobilinogen 1.0 < = 1.0 MG/DL Urine Leukocyte Esterase NEGATIVE NEGATIVE Urine RBC (Auto) NEGATIVE NEGATIVE Urine RBC NONE /HPF Urine WBC 0-2 /HPF Urine Squamous Epithelial Cells 0-2 /HPF Urine Crystals NONE /LPF Urine Bacteria NEGATIVE /HPF Urine Casts NONE /LPF Urine Mucus NEGATIVE /LPF Urine Culture Indicated NO Urine Creatinine 91 30-125 MG/DL Urine Protein/Creatinine Ratio 0.18 Sodium Level 142 140 135-145 MMOL/L Potassium Level 3.1 L 3.6 3.6-5.0 MMOL/L Chloride Level 110 H 113 H 98-107 MMOL/L Carbon Dioxide Level 24 22 21-32 MMOL/L Anion Gap 8 5 5-14 MMOL/L Blood Urea Nitrogen 9 7 7-18 MG/DL Creatinine 0.51 L 0.54 L 0.60-1.30 MG/DL Estimat Glomerular Filtration Rate 140 131 BUN/Creatinine Ratio 18 13 Glucose Level 72 97 70-105 MG/DL Uric Acid 4.2 2.6-7.2 MG/DL Calcium Level 7.1 L 6.9 L 8.5-10.1 MG/DL Corrected Calcium 8.4 L 8.4 L 8.5-10.1 MG/DL Total Bilirubin 0.3 0.3 0.1-1.0 MG/DL Aspartate Amino Transf (AST/SGOT) 23 24 5-34 U/L Alanine Aminotransferase (ALT/SGPT) 23 22 0-55 U/L Alkaline Phosphatase 164 H 141 H 40-136 U/L Lactate Dehydrogenase 220 125-220 U/L Total Protein 5.3 L 4.8 L 6.4-8.2 GM/DL Albumin 2.4 L 2.1 L 3.2-4.5 GM/DL Physical Exam: General - Alert and oriented, no apparent distress Abdomen - Soft, appropriately tender to palpation, non-distended, fundus firm at umbilicus Incision - clean, dry and intact; no erythema or induration, no drainage. Continued edema, justice intact Extremities - 2+ edema, negative Billy's bilaterally Assessment: 1. post-operative day # 1, status post RLTCS. Recovering well, hemodynamically stable 2. Acute blood loss anemia - Iron infusion and iron supplementation 3. Labile blood pressures Plan: Routine post-operative care. Encourage breast feeding. Encourage ambulation. VTE prophylaxis: SCDs/lovenox Ferrous sulfate supplementation. Plan for discharge Vitals - Labs Vital Signs - I&O Vital Signs Date Time Temp Pulse Resp B/P (MAP) Pulse Ox O2 Delivery O2 Flow Rate FiO2 01/28/21 04:11 36.4 80 20 138/60 (86) 98 Room Air 01/27/21 23:31 36.8 87 20 146/64 (91) 97 Room Air 01/27/21 21:22 99 Room Air 01/27/21 19:45 36.7 69 20 163/74 (103) 99 Room Air 01/27/21 16:10 36.4 50 18 141/67 (91) 99 Room Air 01/27/21 14:40 36.1 18 132/62 (85) 99 Room Air 01/27/21 14:40 Room Air 01/27/21 14:30 35.9 20 132/62 (85) 99 Room Air 01/27/21 14:30 Room Air 01/27/21 14:20 36.0 20 131/68 (89) 99 Room Air 01/27/21 14:20 Room Air 01/27/21 14:05 Room Air 01/27/21 14:05 36.2 20 138/70 (92) 99 Room Air 01/27/21 13:52 36.4 20 138/71 (93) 99 Room Air 01/27/21 13:52 Room Air 01/27/21 12:05 62 20 168/80 (109) 98 Room Air 01/27/21 11:35 57 20 98 Room Air 01/27/21 11:00 61 20 139/69 (92) 92 Room Air 01/27/21 10:35 36.0 57 20 169/91 (117) 99 Room Air 01/27/21 10:35 36.0 57 20 99 Room Air I & O 01/28/21 07:00 Intake Total 1950 ml Output Total 1700 ml Balance 250 ml Labs Laboratory Tests 01/27/21 10:48: White Blood Count 9.5, Red Blood Count 3.82, Hemoglobin 8.6L, Hematocrit 31L, Mean Corpuscular Volume 81, Mean Corpuscular Hemoglobin 23L, Mean Corpuscular Hemoglobin Concent 28L, Red Cell Distribution Width 21.2H, Platelet Count 149, Mean Platelet Volume 11.8, Immature Granulocyte % (Auto) 2, Neutrophils (%) (Auto) 67, Lymphocytes (%) (Auto) 25, Monocytes (%) (Auto) 6, Eosinophils (%) (Auto) 0, Basophils (%) (Auto) 1, Neutrophils # (Auto) 6.4, Lymphocytes # (Auto) 2.4, Monocytes # (Auto) 0.5, Eosinophils # (Auto) 0.0, Basophils # (Auto) 0.1, Immature Granulocyte # (Auto) 0.1, Neutrophils % (Manual) 66, Lymphocytes % (Manual) 29, Monocytes % (Manual) 3, Eosinophils % (Manual) 1, Band Neutrophils 1, Smudge Cells SLIGHT, Percent Immature Platelet Fraction 10.4H, Polychromasia SLIGHT, Hypochromasia SLIGHT, Poikilocytosis SLIGHT, Basophilic Stippling SLIGHT, Anisocytosis SLIGHT, Microcytosis SLIGHT, Urine Color YELLOW, Urine Clarity CLEAR, Urine pH 6.0, Urine Specific [place] 1.025H, Urine Protein 16H, Urine Glucose (UA) NEGATIVE, Urine Ketones TRACEH, Urine Nitrite NEGATIVE, Urine Bilirubin NEGATIVE, Urine Urobilinogen 1.0, Urine Leukocyte Esterase NEGATIVE, Urine RBC (Auto) NEGATIVE, Urine RBC NONE, Urine WBC 0-2, Urine Squamous Epithelial Cells 0-2, Urine Crystals NONE, Urine Bacteria NEGATIVE, Urine Casts NONE, Urine Mucus NEGATIVE, Urine Culture Indicated NO, Urine Creatinine 91, Urine Protein/Creatinine Ratio 0.18 01/27/21 14:43: Sodium Level 142, Potassium Level 3.1L, Chloride Level 110H, Carbon Dioxide Level 24, Anion Gap 8, Blood Urea Nitrogen 9, Creatinine 0.51L, Estimat Glomerular Filtration Rate 140, BUN/Creatinine Ratio 18, Glucose Level 72, Uric Acid 4.2, Calcium Level 7.1L, Corrected Calcium 8.4L, Total Bilirubin 0.3, Aspartate Amino Transf (AST/SGOT) 23, Alanine Aminotransferase (ALT/SGPT) 23, Alkaline Phosphatase 164H, Lactate Dehydrogenase 220, Total Protein 5.3L, Albumin 2.4L 01/28/21 05:40: White Blood Count 11.9H, Red Blood Count 3.29L, Hemoglobin 7.5L, Hematocrit 26L, Mean Corpuscular Volume 80, Mean Corpuscular Hemoglobin 23L, Mean Corpuscular Hemoglobin Concent 29L, Red Cell Distribution Width 21.1H, Platelet Count 135, Mean Platelet Volume 11.1, Immature Granulocyte % (Auto) 1, Neutrophils (%) (Auto) 74, Lymphocytes (%) (Auto) 18, Monocytes (%) (Auto) 7, Eosinophils (%) (Auto) 0, Basophils (%) (Auto) 0, Neutrophils # (Auto) 8.8H, Lymphocytes # (Auto) 2.1, Monocytes # (Auto) 0.9, Eosinophils # (Auto) 0.0, Basophils # (Auto) 0.0, Immature Granulocyte # (Auto) 0.1, Sodium Level 140, Potassium Level 3.6, Chloride Level 113H, Carbon Dioxide Level 22, Anion Gap 5, Blood Urea Nitrogen 7, Creatinine 0.54L, Estimat Glomerular Filtration Rate 131, BUN/Creatinine Ratio 13, Glucose Level 97, Calcium Level 6.9L, Corrected Calcium 8.4L, Total Bilirubin 0.3, Aspartate Amino Transf (AST/SGOT) 24, Alanine Aminotransferase (ALT/SGPT) 22, Alkaline Phosphatase 141H, Total Protein 4.8L, Albumin 2.1L MINERVA MCBRIDE DO Jan 28, 2021 08:32
[2021-01-28] MEDS ORDERED: DCS100C PO (08:41)
[2021-01-28] MEDS ORDERED: FERR325T24 PO (08:41)
[2021-01-28] MEDS ORDERED: IBUP-844 PO (08:41)
[2021-01-28] MEDS ORDERED: OXC5T PO (08:41)
[2021-01-28] MEDS ORDERED: ACET-93 PO (08:41)
[2021-01-28] MEDS ORDERED: ENOX60DI7 SQ (08:41)
--- NOTE | 2021-01-28 08:47 | Short Stay Summary ---
Discharge Summary Hospital Course Was the Problem List Reviewed?: Yes Final Diagnosis: previous section, acute blood loss anemia Hospital Course Date of Admission: Jan 27, 2021 at 10:08 Admission Diagnosis : previous section morbid obesity antepartum iron deficiency anemia Family Physician/Provider: Jory Luo Aprn Date of Discharge: 01/28/21 Discharge Diagnosis: same acute blood loss anemia labile blood pressures/gestational hypertension Hospital Course: [ ] Labs and Pending Lab Test: Laboratory Tests 01/27/21 10:48: White Blood Count 9.5, Red Blood Count 3.82, Hemoglobin 8.6L, Hematocrit 31L, Mean Corpuscular Volume 81, Mean Corpuscular Hemoglobin 23L, Mean Corpuscular Hemoglobin Concent 28L, Red Cell Distribution Width 21.2H, Platelet Count 149, Mean Platelet Volume 11.8, Immature Granulocyte % (Auto) 2, Neutrophils (%) (Auto) 67, Lymphocytes (%) (Auto) 25, Monocytes (%) (Auto) 6, Eosinophils (%) (Auto) 0, Basophils (%) (Auto) 1, Neutrophils # (Auto) 6.4, Lymphocytes # (Auto) 2.4, Monocytes # (Auto) 0.5, Eosinophils # (Auto) 0.0, Basophils # (Auto) 0.1, Immature Granulocyte # (Auto) 0.1, Neutrophils % (Manual) 66, Lymphocytes % (Manual) 29, Monocytes % (Manual) 3, Eosinophils % (Manual) 1, Band Neutrophils 1, Smudge Cells SLIGHT, Percent Immature Platelet Fraction 10.4H, Polychromasia SLIGHT, Hypochromasia SLIGHT, Poikilocytosis SLIGHT, Basophilic Stippling SLIGHT, Anisocytosis SLIGHT, Microcytosis SLIGHT, Urine Color YELLOW, Urine Clarity CLEAR, Urine pH 6.0, Urine Specific [place] 1.025H, Urine Protein 16H, Urine Glucose (UA) NEGATIVE, Urine Ketones TRACEH, Urine Nitrite NEGATIVE, Urine Bilirubin NEGATIVE, Urine Urobilinogen 1.0, Urine Leukocyte Esterase NEGATIVE, Urine RBC (Auto) NEGATIVE, Urine RBC NONE, Urine WBC 0-2, Urine Squamous Epithelial Cells 0-2, Urine Crystals NONE, Urine Bacteria NEGATIVE, Urine Casts NONE, Urine Mucus NEGATIVE, Urine Culture Indicated NO, Urine Creatinine 91, Urine Protein/Creatinine Ratio 0.18 01/27/21 14:43: Sodium Level 142, Potassium Level 3.1L, Chloride Level 110H, Carbon Dioxide Level 24, Anion Gap 8, Blood Urea Nitrogen 9, Creatinine 0.51L, Estimat Glomerular Filtration Rate 140, BUN/Creatinine Ratio 18, Glucose Level 72, Uric Acid 4.2, Calcium Level 7.1L, Corrected Calcium 8.4L, Total Bilirubin 0.3, Aspartate Amino Transf (AST/SGOT) 23, Alanine Aminotransferase (ALT/SGPT) 23, Alkaline Phosphatase 164H, Lactate Dehydrogenase 220, Total Protein 5.3L, Albumin 2.4L 01/28/21 05:40: White Blood Count 11.9H, Red Blood Count 3.29L, Hemoglobin 7.5L, Hematocrit 26L, Mean Corpuscular Volume 80, Mean Corpuscular Hemoglobin 23L, Mean Corpuscular Hemoglobin Concent 29L, Red Cell Distribution Width 21.1H, Platelet Count 135, Mean Platelet Volume 11.1, Immature Granulocyte % (Auto) 1, Neutrophils (%) (Auto) 74, Lymphocytes (%) (Auto) 18, Monocytes (%) (Auto) 7, Eosinophils (%) (Auto) 0, Basophils (%) (Auto) 0, Neutrophils # (Auto) 8.8H, Lymphocytes # (Auto) 2.1, Monocytes # (Auto) 0.9, Eosinophils # (Auto) 0.0, Basophils # (Auto) 0.0, Immature Granulocyte # (Auto) 0.1, Sodium Level 140, Potassium Level 3.6, Chloride Level 113H, Carbon Dioxide Level 22, Anion Gap 5, Blood Urea Nitrogen 7, Creatinine 0.54L, Estimat Glomerular Filtration Rate 131, BUN/Creatinine Ratio 13, Glucose Level 97, Calcium Level 6.9L, Corrected Calcium 8.4L, Total Bilirubin 0.3, Aspartate Amino Transf (AST/SGOT) 24, Alanine Aminotransferase (ALT/SGPT) 22, Alkaline Phosphatase 141H, Total Protein 4.8L, Albumin 2.1L Home Meds Active Dok (Docusate Sodium) 100 Mg Capsule 100 Mg PO BID Acetaminophen 500 Mg Tablet 1,000 Mg PO Q8HR Oxyir Tablet (Oxycodone HCl) 5 Mg Tab 5 Mg PO Q4HR Ibu (Ibuprofen) 600 Mg Tablet 600 Mg PO Q6HR Enoxaparin Sodium 60 Mg/0.6 Ml Syringe 60 Mg SQ BID@0500,1700 1 injections twice daily until gone Ferosul (Ferrous Sulfate) 325 Mg Tablet 325 Mg PO BID WITH MEALS Reported Multi Tablet (Pnv No.122/Iron/Folic Acid) 1 Each Tablet 1 Each PO DAILY Sertraline HCl 100 Mg Tablet 50 Mg PO HS PATIENT TAKES OF A 100MG TAB Discharge Instructions Discharge Diet: No Restrictions, Other Diet (iron rich) Activity as Tolerated: Yes (no lifting over 25 lbs, nothing in vagina, no driving for 1 week) Discharge Physical Examination Allergies: Coded Allergies: levofloxacin (Unverified Allergy, Mild, N/V, 10/20/18) Discharge Summary Date of Admission Jan 27, 2021 at 10:08 Date of Discharge MINERVA MCBRIDE DO Jan 28, 2021 08:47
[2021-01-28] MEDS: DOCUSATE SODIUM 100 MG (COLACE) CAP PO SCH ×2 (09:34→20:14)
[2021-01-28] MEDS: FERROUS SULF 325 MG (IRON) TAB PO SCH ×2 (09:34→17:01)
[2021-01-28 09:45] VITALS: BP 136/65
[2021-01-28] MEDS: IBUPROFEN 600 MG (MOTRIN) TAB PO SCH ×2 (14:01→20:14)
[2021-01-28 14:13] VITALS: BP 142/67
[2021-01-28 17:04] VITALS: BP 125/58
[2021-01-28] MEDS ORDERED: FERROUS SULF 325 MG (IRON) TAB PO SCH (18:00)
[2021-01-28 20:14] VITALS: BP 156/70
[2021-01-29 01:21] VITALS: BP 134/62
[2021-01-29] MEDS: IBUPROFEN 600 MG (MOTRIN) TAB PO SCH ×3 (01:21→13:32)
[2021-01-29] MEDS: ENOXAPARIN 60 MG/0.6 ML (LOVENOX) SYR SQ SCH (05:11)
[2021-01-29] MEDS: METOCLOPRAMIDE 10 MG (REGLAN) TAB PO SCH ×2 (05:12→13:32)
[2021-01-29] MEDS: ACETAMINOPHEN 500 MG TAB (TYLENOL) PO SCH ×2 (05:12→13:32)
--- NOTE | 2021-01-29 06:33 | Discharge Inst-Women's Service ---
Discharge Inst-Women's Serv Depart Medication/Instructions New, Converted or Re-Newed RX: Transmitted to Pharmacy Instructions continue lovenox twice daily until all gone (6 days) expect bruising, vaginal bleeding; but call if wound separation/bleeding, draining more than a small amount, fever, vaginal bleeding > 1 pad per hour for 2 hours, headaches, blurred vision, difficulty breathing Final Diagnosis previous section acute blood loss anemia gestational hypertension Problems Reviewed?: Yes Consults/Follow Up Additional Follow Up: Yes (1 week for stable removal (Saturday02/03/31) and incision check, then [address] Shukla) Activity Activity: Activity as Tolerated (no lifting over 25 lbs) Driving Instructions: No Driving for 1 Week Nothing Inside Vagina: No Douching, No [place], No Tampons Diet Discharge Diet: No Restrictions Symptoms to Report to : Swelling Increased, Bleeding Excessive, Pain Increased, Fever Over 101 Degrees F, Vaginal Bleeding Increase, Cramps in Feet or Legs, Vaginal Discharge Foul For Any Problems or Questions: Contact Your Physician Skin/Wound Care Infection Signs and Symptoms: Increased Redness, Foul Odor of Wound, Increased Drainage, Skin Itchy or Has a Rash, Increased Swelling, Temperature Above 101 F Operative Area Clean and Dry: Keep Incision Clean/Dry Stitches/Donny/Dermabond: Care of Donny Bathing Instructions: MINERVA Go DO Jan 29, 2021 06:33
--- NOTE | 2021-01-29 06:34 | Postpartum Progress Note ---
Post Op Post-operative Day #2 s/p RLTCS hgb low but not transfusion range. IV iron given yesterday Subjective: Patient is without complaints. Ambulating, voiding after hartmann removed. Tolerating a regular diet without nausea or vomiting. Normal lochia. Pain is well controlled with oral pain medications. Passing flatus. breast feeding. [] Objective: Intake and Output 01/29/21 00:00 Intake Total 900 ml Output Total 1100 ml Balance -200 ml Intake Oral 900 ml Output Urine Total 1100 ml # Bowel Movements 2 01/28/21 01/29/21 20:14 01:21 Temp 36.6 36.3 Pulse 90 94 Resp 22 22 B/P (MAP) 156/70 (98) 134/62 (86) Pulse Ox 97 97 O2 Delivery Room Air Room Air Physical Exam: General - Alert and oriented, no apparent distress Abdomen - Soft, appropriately tender to palpation, non-distended, fundus firm at umbilicus Incision - clean, dry and intact; no erythema or induration, no drainage Extremities - no edema, negative Billy's bilaterally [] Assessment: 1 post-operative day # 2, status post RLTCS. Recovering well, hemodynamically stable 2. Acute blood loss anemia 3. gestational hypertension 4. lower extremity edema Plan: Routine post-operative care. Encourage breast feeding. Encourage ambulation. VTE prophylaxis: SCDs/Lovenox Ferrous sulfate supplementation. Plan for discharge today Vitals - Labs Vital Signs - I&O Vital Signs Date Time Temp Pulse Resp B/P (MAP) Pulse Ox O2 Delivery O2 Flow Rate FiO2 01/29/21 01:21 36.3 94 22 134/62 (86) 97 Room Air 01/28/21 20:14 36.6 90 22 156/70 (98) 97 Room Air 01/28/21 17:04 36.7 76 22 125/58 (80) 97 Room Air 01/28/21 14:13 36.3 96 24 142/67 (92) 97 Room Air 01/28/21 09:45 36.4 80 22 136/65 (88) 98 Room Air MIENRVA MCBRIDE DO Jan 29, 2021 06:34
[2021-01-29] MEDS ORDERED: FURO-125 PO (06:51)
--- NOTE | 2021-01-29 06:56 | Anesthesia-Regional Post-Op ---
Regional Patient Condition Mental Status: Alert, Oriented x3 Circulation: Same as Pre-Op Headache: Absent Sensation: Full Recovery Motor Block: Absent Post Op Complications Complications None Follow Up Care/Instructions Patient Instructions None needed. Anesthesia/Patient Condition Patient is doing well, no complaints, stable vital signs, no apparent adverse anesthesia problems. No complications reported per nursing. NOHELIA VICKERS CRNA Jan 29, 2021 06:56
[2021-01-29 08:25] VITALS: BP 144/73
[2021-01-29] MEDS: FERROUS SULF 325 MG (IRON) TAB PO SCH (08:28)
[2021-01-29] MEDS: DOCUSATE SODIUM 100 MG (COLACE) CAP PO SCH (08:29)
[2021-01-29] MEDS ORDERED: FUROSEMIDE 20 MG (LASIX) TAB PO ONE (09:00)
== END 2021-01-29 14:17 | disposition home or self-care (01) | DRG 787 ==
LOC: LDRP 10:08
PROVIDERS: ADMIT Obstetrics & Gynecology; ATTEND Obstetrics & Gynecology
PROC: 10D00Z1 Extraction of Products of Conception, Low, Open Approach (ICD-10-PCS; principal; 2021-01-27 12:33)
DX: O34.211 Maternal care for low transverse scar from previous cesarean delivery (principal); D62 Acute posthemorrhagic anemia; O99.214 Obesity complicating childbirth; E66.01 Morbid (severe) obesity due to excess calories; O99.03 Anemia complicating the puerperium; O99.344 Other mental disorders complicating childbirth; F32.9 Major depressive disorder, single episode, unspecified; O40.3XX0 Polyhydramnios, third trimester, not applicable or unspecified; O77.0 Labor and delivery complicated by meconium in amniotic fluid; O69.2XX0 Labor and delivery complicated by other cord entanglement, with compression, not applicable or unspecified; O13.4 Gestational [pregnancy-induced] hypertension without significant proteinuria, complicating childbirth; D50.9 Iron deficiency anemia, unspecified; Z3A.39 39 weeks gestation of pregnancy; Z37.0 Single live birth; Z77.22 Contact with and (suspected) exposure to environmental tobacco smoke (acute) (chronic); Z98.84 Bariatric surgery status
CPT/HCPCS: 36415; 80053; 81000; 82570; 83615; 84156; 84550; 85007; 85025; 85027; 86850; 86900; 86901; 88307; 94664

== ENCOUNTER → 2021-01-31 | Outpatient (CLI) | payer BC ==
[~2021-01-31] MED LIST changes: +ACET-93 PO; +ENOX60DI7 SQ; +FERR325T24 PO; +FURO-125 PO; +IBUP-844 PO; +OXC5T PO
[2021-01-31 12:52] LABS: BASOPHILS % (AUTO) 0 % (0-10); EOSINOPHILS # (AUTO) 0.1 10^3/uL (0.0-0.3); EOSINOPHILS % (AUTO) 2 % (0-10); HEMATOCRIT 29 % (35-52); LYMPHOCYTES # (AUTO) 1.7 10^3/uL (1.0-4.0); LYMPHOCYTES % (AUTO) 32 % (12-44); MEAN CORPUSCULAR HEMOGLOBIN 23 pg (25-34); MEAN CORPUSCULAR HGB CONC 28 g/dL (32-36); MEAN CORPUSCULAR VOLUME 83 fL (80-99); MEAN PLATELET VOLUME 10.4 fL (9.0-12.2); MONOCYTES # (AUTO) 0.3 10^3/uL (0.0-1.0); MONOCYTES % (AUTO) 5 % (0-12); NEUTROPHILS # (AUTO) 3.2 10^3/uL (1.8-7.8); NEUTROPHILS % (AUTO) 59 % (42-75); PLATELET COUNT 201 10^3/uL (130-400); WHITE BLOOD COUNT 5.4 10^3/uL (4.3-11.0)
[2021-01-31 13:12] LABS: ALBUMIN 2.4 GM/DL (3.2-4.5); BILIRUBIN,TOTAL 0.3 MG/DL (0.1-1.0); CALCIUM 7.5 MG/DL (8.5-10.1); CREATININE SERUM 0.58 MG/DL (0.60-1.30); TOTAL PROTEIN 5.8 GM/DL (6.4-8.2); URIC ACID 5.3 MG/DL (2.6-7.2)
== END ==
LOC: LAB 12:17
PROVIDERS: ATTEND Family Medicine
DX: I10 Essential (primary) hypertension (principal); M79.89 Other specified soft tissue disorders
CPT/HCPCS: 36415; 80053; 82570; 83615; 84156; 84550; 85025

== ENCOUNTER → 2021-02-08 | Outpatient (CLI) | payer BC ==
--- NOTE | 2021-02-08 15:38 | Diagnostic Imaging Report ---
PROCEDURE: CT abdomen and pelvis without contrast. TECHNIQUE: Multiple contiguous axial images were obtained through the abdomen and pelvis without the use of intravenous contrast. Auto Exposure Controls were utilized during the CT exam to meet ALARA standards for radiation dose reduction. INDICATION: Disruption after . Drainage from incision site. COMPARISON: 12/13/2016. FINDINGS: The included portions of the lung bases show a partially visualized micronodule with surrounding groundglass density of the posterior margins of the lateral segment of the right middle lobe (image 1, series 2). The remainder of the visualized portions of the lung bases is clear. CT ABDOMEN: A normal appendix cannot be adequately identified but there is no pericecal inflammation. Note is made of mild diffuse prominence of the distal small bowel loops. There is fecalized material within the distal small bowel. Post surgical changes to the small bowel are also noted within the mid abdomen anteriorly. There is no pneumatosis, pneumoperitoneum, or portal venous gas. There is no free fluid within the abdomen or pelvis. The kidneys, adrenal glands, spleen, pancreas, and liver have an unremarkable noncontrast CT appearance. No abnormal mesenteric or retroperitoneal adenopathy is seen. The osseous structures show no acute abnormalities. CT PELVIS: The uterus is enlarged. Note is made of provided clinical history of recent status. The urinary bladder is minimally distended and unopacified. No calculi are seen within the urinary bladder. There is no loculated fluid collection, free fluid, or free air within the intraperitoneal portion of the pelvis. There is, however, a moderate-sized collection of gas and debris within the subcutaneous fat in the base of the patient's pannus overlying the anterior lower pelvis. It measures 4.5 x 12.2 x 8.9 cm and is concerning for a post operative abscess. No abnormal mesenteric adenopathy is seen. The osseous structures show no acute abnormalities. IMPRESSION: 1. Moderate-sized loculated collection of gas and debris within the subcutaneous soft tissues of the patient's pannus overlying the lower pelvis. Again, this is concerning for a post surgical abscess. It does appear to be in a position amenable to CT-guided drainage. 2. Mild prominence of loops of small bowel with fecalized material but otherwise no convincing evidence of obstruction. Findings may be on the basis of transit of enteric content. Correlation with small bowel follow-through may be of benefit. 3. Partially visualized micronodule with surrounding groundglass density in the included portions of the right middle lobe. This may relate to calcified granuloma seen on a previous CT chest. If further evaluation is indicated, a repeat dedicated CT chest is recommended. Dictated by: Dictated on workstation # [id number]
== END ==
LOC: RAD 15:45
PROVIDERS: ATTEND Obstetrics & Gynecology
DX: O90.0 Disruption of cesarean delivery wound (principal)
CPT/HCPCS: 74176

== ENCOUNTER → 2021-02-08 | Outpatient (CLI) | payer BC | LOC: WOUNDCARE 08:39 | PROVIDERS: ATTEND Surgery | DX: T81.30XA Disruption of wound, unspecified, initial encounter (principal); L98.492 Non-pressure chronic ulcer of skin of other sites with fat layer exposed; E66.01 Morbid (severe) obesity due to excess calories; Z68.42 Body mass index [BMI] 45.0-49.9, adult | CPT/HCPCS: 99214 ==

== ENCOUNTER → 2021-02-15 | Outpatient (CLI) | payer BC | LOC: WOUNDCARE 09:30 | PROVIDERS: ATTEND Surgery | DX: T81.30XA Disruption of wound, unspecified, initial encounter (principal); I96 Gangrene, not elsewhere classified; L98.492 Non-pressure chronic ulcer of skin of other sites with fat layer exposed; E66.01 Morbid (severe) obesity due to excess calories; Z68.42 Body mass index [BMI] 45.0-49.9, adult | CPT/HCPCS: 11042; 11045; 97605; G0463 ==

== ENCOUNTER → 2021-02-22 | Outpatient (CLI) | payer BC | LOC: WOUNDCARE 09:32 | PROVIDERS: ATTEND Surgery | DX: T81.30XA Disruption of wound, unspecified, initial encounter (principal); L98.492 Non-pressure chronic ulcer of skin of other sites with fat layer exposed; E66.01 Morbid (severe) obesity due to excess calories; I96 Gangrene, not elsewhere classified | CPT/HCPCS: 11042; 11045; 97605; G0463 ==

== ENCOUNTER → 2021-03-03 | Outpatient (CLI) | payer BC | LOC: WOUNDCARE 09:18 | PROVIDERS: ATTEND Surgery | DX: T81.30XA Disruption of wound, unspecified, initial encounter (principal); L98.492 Non-pressure chronic ulcer of skin of other sites with fat layer exposed; E66.01 Morbid (severe) obesity due to excess calories; I96 Gangrene, not elsewhere classified | CPT/HCPCS: 11042; A6197; A6253; G0463 ==

== ENCOUNTER → 2021-03-08 | Outpatient (CLI) | payer BC | LOC: WOUNDCARE 10:03 | PROVIDERS: ATTEND Surgery | DX: T81.30XA Disruption of wound, unspecified, initial encounter (principal); L98.492 Non-pressure chronic ulcer of skin of other sites with fat layer exposed; E66.01 Morbid (severe) obesity due to excess calories; I96 Gangrene, not elsewhere classified | CPT/HCPCS: 11042; G0463 ==

== ENCOUNTER → 2021-03-15 | Outpatient (CLI) | payer BC | LOC: WOUNDCARE 09:58 | PROVIDERS: ATTEND Surgery | DX: L92.8 Other granulomatous disorders of the skin and subcutaneous tissue (principal); T81.30XA Disruption of wound, unspecified, initial encounter; L98.492 Non-pressure chronic ulcer of skin of other sites with fat layer exposed; E66.01 Morbid (severe) obesity due to excess calories; I96 Gangrene, not elsewhere classified | CPT/HCPCS: 17250 ==

== ENCOUNTER → 2021-04-03 | Outpatient (CLI) | payer BC ==
[~2021-04-03] MED LIST changes: +DOCU-239 PO
== END ==
LOC: WOUNDCARE 14:54
PROVIDERS: ATTEND Surgery
DX: L92.8 Other granulomatous disorders of the skin and subcutaneous tissue (principal); L98.492 Non-pressure chronic ulcer of skin of other sites with fat layer exposed; I96 Gangrene, not elsewhere classified; T81.30XA Disruption of wound, unspecified, initial encounter; E66.01 Morbid (severe) obesity due to excess calories; Z68.42 Body mass index [BMI] 45.0-49.9, adult
CPT/HCPCS: 17250; G0463

== ENCOUNTER → 2021-04-10 | Outpatient (CLI) | payer BC | LOC: WOUNDCARE 08:10 | PROVIDERS: ATTEND Surgery | DX: L92.8 Other granulomatous disorders of the skin and subcutaneous tissue (principal); T81.30XA Disruption of wound, unspecified, initial encounter; L98.492 Non-pressure chronic ulcer of skin of other sites with fat layer exposed; E66.01 Morbid (severe) obesity due to excess calories; Z68.42 Body mass index [BMI] 45.0-49.9, adult | CPT/HCPCS: 11042; G0463 ==

== ENCOUNTER 2021-04-11 13:39 | Emergency (ER) | payer OTHER, BC ==
[~2021-04-11] VITALS: Ht 167.7 cm; Wt 119.0 kg
--- NOTE | 2021-04-11 14:45 | Diagnostic Imaging Report ---
INDICATION: Pain after injury EXAMINATION: Left shoulder from 04/11/2021 FINDINGS: 3 views of the shoulder. FINDINGS: There is no evidence for an acute fracture or dislocation. The joint spaces are well maintained. There is no significant soft tissue swelling. IMPRESSION: No acute process. Dictated by: Dictated on workstation # [id number]
--- NOTE | 2021-04-11 15:15 | ED General ---
General Chief Complaint: General Problems/Pain Stated Complaint: L SHOULDER PAIN FELL Nursing Triage Note: AMB TO ED REPORTS 2 DAYS AGO WAS ON STEP LADDER AT [employer] AND LOST BALANCE AND FELL OFF LANDING ON L SHOULDER. C/O PAIN IN R HIP AND L SHORITCHIE REPORTS THAT AT NIGHT WHEN SHE SLEEPS HER R HIP AND L SHOULDER GO NUMB History of Present Illness Date Seen by Provider: Apr 11, 2021 Time Seen by Provider: 13:55 Initial Comments 30-year-old female reports 2 days ago she was on a stepstool at work, [employer]. The step stool broke and she fell towards a counter that she hit her left posterior leg and then landed on her left shoulder. Since then she has been taking Oxycodone and Ibuprofen for the pain. She denies a previous history of injuries to her left upper extremity. She is right-hand dominant. She is approximately 10 weeks . She is being treated at wound care for dehiscence of her incision. She denies any other complaints. No neck or back pain and no head injury at the time of the fall. She called Dr. Calvin's office for appt and was referred here. [facility] notified. Timing/Duration: 2-3 Days Severity: Mild Modifying Factors: improves with Rest Associated Systoms: Denies Symptoms Allergies and Home Medications Allergies Coded Allergies: levofloxacin (Unverified Allergy, Mild, N/V, 10/20/18) Patient Home Medication List Home Medication List Reviewed: Yes Acetaminophen (Acetaminophen) 500 Mg Tablet, 1,000 MG PO Q8HR Prescribed by: MINERVA MCBRIDE on 01/28/21840 Docusate Sodium (Dok) 100 Mg Capsule, 100 MG PO BID Prescribed by: MINERVA MCBRIDE on 01/28/21840 Enoxaparin Sodium (Enoxaparin Sodium) 60 Mg/0.6 Ml Syringe, 60 MG SQ BID@0500,1700 Prescribed by: MINERVA MCBRIDE on 01/28/21840 Ferrous Sulfate (Ferosul) 325 Mg Tablet, 325 MG PO BID WITH MEALS Prescribed by: MINERVA MCBRIDE on 01/28/21840 Furosemide (Lasix) 20 Mg Tablet, 20 MG PO DAILY Prescribed by: MINERVA MCBRIDE on 01/29/21 06 Ibuprofen (Ibu) 600 Mg Tablet, 600 MG PO Q6HR Prescribed by: MINERVA MCBRIDE on 01/28/21 0841 Oxycodone Hcl (Oxyir Tablet) 5 Mg Tab, 5 MG PO Q4HR Prescribed by: MINERVA MCBRIDE on 01/28/21 0842 Pnv No.122/Iron/Folic Acid ( Multi Tablet) 1 Each Tablet, 1 EACH PO DAILY, (Reported) Entered as Reported by: RODNEY DICKSON on 01/26/21 1239 Sertraline HCl (Sertraline HCl) 100 Mg Tablet, 50 MG PO HS, (Reported) Entered as Reported by: JESSIE PRECIADO on 01/13/20 5090 Review of Systems Review of Systems Constitutional: no symptoms reported, see HPI Musculoskeletal: see HPI, joint pain (Left shoulder), muscle pain (posterior right thigh), muscle stiffness (left shoulder) All Other Systems Reviewed Negative Unless Noted: Yes Past Bidbimi-Juasgh-Mawyhw Hx Patient Social History Tobacco Use?: No Substance use?: No Immunizations Up To Date Tetanus Booster (TDap): Less than 5yrs PED Vaccines UTD: No Seasonal Allergies Seasonal Allergies: No Past Medical History Surgeries: Yes (LAP BAND /REMOVAL, EAR TUBES, DUODENAL SWITCH, EGD, PEG TUBE/REMOVAL) Abdominal, Adenoidectomy, Appendectomy, Section, Ear Surgery, Gallbladder, Tonsillectomy Respiratory: Yes (NO ISSUES UNLESS HAS A COLD) Asthma Currently Using CPAP: No Currently Using BIPAP: No Cardiac: No Hypertension Neurological: Yes (SEIZURES AT FROM MENINGITIS) Headaches /Migraines, Seizure Disorder Reproductive Disorders: Yes (IRREGULAR PERIODS) Female Reproductive Disorders: Menstrual Problems Sexually Transmitted Disease: No HIV/AIDS: No Genitourinary: No UTI-Chronic Gastrointestinal: Yes (03/25/14 Biliopancreatic Diversion with Duodenal Switch, hx feeding tube) Musculoskeletal: Yes (LUMBAR) Chronic Back Pain Endocrine: No Hypothyroidsim, Diabetes, Non-Insulin dep HEENT: No Loss of Vision: Denies Hearing Impairment: Denies Cancer: No Psychosocial: Yes Bipolar, Schizophrenia, Depression Integumentary: No Blood Disorders: No Adverse Reaction/Blood Tranf: No (N/A) Family Medical History Reviewed Nursing Family Hx Family history: Arthritis 03 MOTHER Family history: Asthma 03 FATHER Family history: Diabetes mellitus 03 MOTHER HALF SISTER Family history: Glaucoma 03 MOTHER Family history: Hypertension 03 FATHER Family history: Osteoporosis 03 MOTHER Family history: Thyroid disorder 09 SISTER (THYROIDECTOMY) Headache 03 MOTHER 09 SISTER Hearing loss 03 MOTHER History of - respiratory disease 03 FATHER Hypercholesterolemia 03 FATHER No Family History of: Abdominal aortic aneurysm Coosa's disease Alcoholism Aphasia Cancer Cancer of colon Cataract Chest pain Congenital heart disease Congestive heart failure Cystic fibrosis Dementia Dysphagia Family history: Allergy Family history: Alzheimer's disease Family history: Breast disease Family history: Cardiovascular disease Family history: Coronary thrombosis Family history: Gastrointestinal disease Heart disease Hereditary disease History of - anemia History of - disorder History of drug abuse Human immunodeficiency virus (HIV) seropositivity Infertile Kidney disease Malignant neoplasm of lung Myocardial infarction Parkinson's disease Prostate cancer Psychotic disorder Seizure disorder Stroke Tuberculosis Visual impairment Physical Exam Vital Signs Vital Signs - First Documented 04/11/21 13:45 Temp 36.2 Pulse 71 Resp 18 B/P (MAP) 159/98 (118) Pulse Ox 100 O2 Delivery Room Air Capillary Refill : Less Than 3 Seconds Height, Weight, BMI Height: 5'6.00" Weight: 248lbs. 8.0oz. 112.530721pc; 42.00 BMI Method:Stated General Appearance: No Apparent Distress, WD/WN, Obese HEENT: PERRL/EOMI, TMs Normal, Normal ENT Inspection, Pharynx Normal Neck: Full Range of Motion, Normal Inspection, Non Tender, Supple Respiratory: Chest Non Tender, Lungs Clear, Normal Breath Sounds Cardiovascular: Regular Rate, Rhythm, No Edema, No Murmur, Normal Peripheral Pulses Gastrointestinal: Normal Bowel Sounds, Non Tender, Soft Back: Normal Inspection, No Vertebral Tenderness Extremity: Normal Capillary Refill, Normal Inspection, Normal Range of Motion (right arm, jordan legs. ), Other (left shoulder LOM secondary to pain. Neg appr ehension and impingement. Power V/V Biceps, triceps, and ext rotators.) Neurologic/Psychiatric: Alert, Oriented x3, No Motor/Sensory Deficits, Normal Mood/Affect Skin: Normal Color, Warm/Dry, Ecchymosis (posterior right thigh) Progress/Results/Core Measures Suspected Sepsis SIRS Temperature: Pulse: 71 Respiratory Rate: 18 Blood Pressure 159 /98 Mean: 118 Results/Orders My Orders Orders - PRECIOUS RAHMAN Shoulder, Left, 3 Views (04/11/21 14:17) Vital Signs/I&O 04/11/21 04/11/21 13:45 15:24 Temp 36.2 36.2 Pulse 71 70 Resp 18 18 B/P (MAP) 159/98 (118) 160/89 Pulse Ox 100 99 O2 Delivery Room Air Room Air Capillary Refill : Less Than 3 Seconds Blood Pressure Mean: 118 Progress Note : Time: 13:55 Progress Note Patient seen and evaluated, will obtain x-ray of the left shoulder and reevaluate. 1455 x-ray show no acute findings of the left shoulder. Discharge instructions and return precautions reviewed with the patient. Departure Impression Primary Impression: Fall (on) (from) other stairs and steps, initial encounter Additional Impressions: Left shoulder pain Qualified Codes: M25.512 - Pain in left shoulder Contusion of right leg Qualified Codes: S80.11XA - Contusion of right lower leg, initial encounter Disposition: HOME, SELF-CARE Condition: Improved Departure-Patient Inst. Decision time for Depature: 14:55 Referrals: LORENA CALVIN MD (PCP/Family) Primary Care Physician Patient Instructions: Shoulder Pain (DC) Add. Discharge Instructions: Alternate heat and ice to your left shoulder for 20 minutes every 2 hours. Alternate between ibuprofen 600 mg and Tylenol 650 mg every 4 hours for pain or swelling. Follow up at [facility] or [facility], if not improving. Return to the Emergency Dept, for new, urgent healthcare problems. All discharge instructions reviewed with patient and/or family. Voiced understanding. PRECIOUS RAHMAN Apr 11, 2021 15:15
[2021-04-11 15:24] VITALS: BP 160/89
== END 2021-04-11 15:24 | disposition home or self-care (01) ==
LOC: EDUNIT# 13:39 → ER 13:42
DX: S80.11XA Contusion of right lower leg, initial encounter (principal); S70.11XA Contusion of right thigh, initial encounter; M25.512 Pain in left shoulder; J45.909 Unspecified asthma, uncomplicated; I10 Essential (primary) hypertension; F32.9 Major depressive disorder, single episode, unspecified; G89.29 Other chronic pain; M54.9 Dorsalgia, unspecified; E66.9 Obesity, unspecified; E11.9 Type 2 diabetes mellitus without complications; Z68.41 Body mass index [BMI] 40.0-44.9, adult; Z79.01 Long term (current) use of anticoagulants; Z79.891 Long term (current) use of opiate analgesic; W10.8XXA Fall (on) (from) other stairs and steps, initial encounter; Z79.899 Other long term (current) drug therapy
CPT/HCPCS: 73030

== ENCOUNTER → 2021-04-17 | Outpatient (CLI) | payer BC | LOC: WOUNDCARE 08:15 | PROVIDERS: ATTEND Surgery | DX: L92.8 Other granulomatous disorders of the skin and subcutaneous tissue (principal); I96 Gangrene, not elsewhere classified; T81.30XA Disruption of wound, unspecified, initial encounter; L98.492 Non-pressure chronic ulcer of skin of other sites with fat layer exposed; E66.01 Morbid (severe) obesity due to excess calories; Z68.42 Body mass index [BMI] 45.0-49.9, adult | CPT/HCPCS: 11042; G0463 ==

== ENCOUNTER → 2021-04-21 | Outpatient (CLI) | payer BC ==
[~2021-04-21] MED LIST changes: -DULO60CA6 PO; +DULO60CA7 PO
== END ==
LOC: WOUNDCARE 10:00
PROVIDERS: ATTEND Family Medicine

== ENCOUNTER → 2021-04-24 | Outpatient (CLI) | payer BC ==
[~2021-04-24] MED LIST changes: +DULO60CA6 PO; -DULO60CA7 PO
== END ==
LOC: WOUNDCARE 08:04
PROVIDERS: ATTEND Family Medicine
DX: L92.8 Other granulomatous disorders of the skin and subcutaneous tissue (principal); T81.30XA Disruption of wound, unspecified, initial encounter; L98.492 Non-pressure chronic ulcer of skin of other sites with fat layer exposed; E66.01 Morbid (severe) obesity due to excess calories; I96 Gangrene, not elsewhere classified
CPT/HCPCS: 11042; G0463

== ENCOUNTER → 2021-05-05 | Outpatient (CLI) | payer BC ==
[~2021-05-05] MED LIST changes: -DULO60CA6 PO; +DULO60CA7 PO
== END ==
LOC: WOUNDCARE 10:24
PROVIDERS: ATTEND Family Medicine
DX: L92.8 Other granulomatous disorders of the skin and subcutaneous tissue (principal); T81.30XA Disruption of wound, unspecified, initial encounter; L98.492 Non-pressure chronic ulcer of skin of other sites with fat layer exposed; E66.01 Morbid (severe) obesity due to excess calories; I96 Gangrene, not elsewhere classified
CPT/HCPCS: 11042; A6266; G0463

== ENCOUNTER → 2021-05-05 | Outpatient (CLI) | payer BC ==
[2021-05-05 12:03] LABS: BASOPHILS % (AUTO) 1 % (0-10); EOSINOPHILS # (AUTO) 0.1 10^3/uL (0.0-0.3); EOSINOPHILS % (AUTO) 2 % (0-10); HEMATOCRIT 33 % (35-52); HEMOGLOBIN 9.9 g/dL (11.5-16.0); LYMPHOCYTES # (AUTO) 1.7 10^3/uL (1.0-4.0); LYMPHOCYTES % (AUTO) 43 % (12-44); MEAN CORPUSCULAR HEMOGLOBIN 26 pg (25-34); MEAN CORPUSCULAR HGB CONC 30 g/dL (32-36); MEAN CORPUSCULAR VOLUME 87 fL (80-99); MEAN PLATELET VOLUME 11.2 fL (9.0-12.2); MONOCYTES # (AUTO) 0.2 10^3/uL (0.0-1.0); MONOCYTES % (AUTO) 6 % (0-12); NEUTROPHILS # (AUTO) 1.9 10^3/uL (1.8-7.8); NEUTROPHILS % (AUTO) 48 % (42-75); PLATELET COUNT 221 10^3/uL (130-400); WHITE BLOOD COUNT 3.9 10^3/uL (4.3-11.0)
[2021-05-05 12:12] LABS: ALBUMIN 3.6 GM/DL (3.2-4.5)
[2021-05-05 12:13] LABS: POTASSIUM 3.9 MMOL/L (3.6-5.0)
[2021-05-05 12:14] LABS: CALCIUM 8.1 MG/DL (8.5-10.1)
[2021-05-05 12:15] LABS: TOTAL PROTEIN 7.3 GM/DL (6.4-8.2)
[2021-05-05 12:17] LABS: BILIRUBIN,TOTAL 0.4 MG/DL (0.1-1.0)
[2021-05-05 12:19] LABS: CREATININE SERUM 0.66 MG/DL (0.60-1.30)
== END ==
LOC: LAB 11:19
PROVIDERS: ATTEND Family Medicine
DX: L92.8 Other granulomatous disorders of the skin and subcutaneous tissue (principal); T81.30XA Disruption of wound, unspecified, initial encounter; L98.492 Non-pressure chronic ulcer of skin of other sites with fat layer exposed; E66.01 Morbid (severe) obesity due to excess calories
CPT/HCPCS: 36415; 80053; 83036; 84134; 85025

== ENCOUNTER → 2021-05-08 | Outpatient (CLI) | payer BC | LOC: WOUNDCARE 08:20 | PROVIDERS: ATTEND Family Medicine | DX: L92.8 Other granulomatous disorders of the skin and subcutaneous tissue (principal); T81.30XA Disruption of wound, unspecified, initial encounter; L98.492 Non-pressure chronic ulcer of skin of other sites with fat layer exposed; E66.01 Morbid (severe) obesity due to excess calories; E44.0 Moderate protein-calorie malnutrition; I96 Gangrene, not elsewhere classified | CPT/HCPCS: 99213 ==

== ENCOUNTER → 2021-05-10 | Outpatient (CLI) | payer BC ==
[~2021-05-10] MED LIST changes: +CATHETER FLUSH 10 ML SYR IV PRN; +HOLD METFORMIN - RECEIVED CONTRAST 20 ML VIAL IV SCH; +IOHEXOL 350 MG/ML 100 ML (OMNIPAQUE 350) VIAL IV ONE; +NS 100 ML (IVPB) BAG IV ONE
--- NOTE | 2021-05-10 11:57 | Diagnostic Imaging Report ---
PROCEDURE: CT abdomen and pelvis with contrast. TECHNIQUE: Multiple contiguous axial images were obtained through the abdomen and pelvis after administration of intravenous contrast. Auto Exposure Controls were utilized during the CT exam to meet ALARA standards for radiation dose reduction. All CT scans use one or more of the following dose optimizing techniques: automated exposure control, MA and/or KvP adjustment based on patient size and exam type or iterative reconstruction. INDICATION: Recent in January with nonhealing incision. COMPARISON: CT study from 02/08/2021. FINDINGS: The lung bases are clear of acute infiltrates. There appear to be post surgical changes from gastric bypass surgery. The liver is unremarkable. The gallbladder is surgically absent. There is no biliary ductal dilatation. The pancreas and spleen are unremarkable. No adrenal mass is detected. The kidneys are unremarkable. The aorta is nonaneurysmal. The large gas and fluid collection in the lower anterior abdominal wall has resolved. No residual fluid collection is seen. There may be a minimal residual midline wound with gas present within the crease of the pannus but no drainable fluid collection is seen. The bowel loops are unremarkable. No intra-abdominal free fluid or fluid collection is seen. The uterus and bladder are unremarkable. IMPRESSION: There may be a minimal residual superficial wound at the crease of the pannus in the midline lower abdomen but the previously noted large gas and fluid collection in the anterior abdominal wall has resolved. No superficial or deep fluid collection is identified on today's study. Dictated by: Dictated on workstation # [id number]
== END ==
LOC: RAD 10:45
PROVIDERS: ATTEND Family Medicine
DX: L98.492 Non-pressure chronic ulcer of skin of other sites with fat layer exposed (principal); T81.89XD Other complications of procedures, not elsewhere classified, subsequent encounter
CPT/HCPCS: 74177

== ENCOUNTER → 2021-05-15 | Outpatient (CLI) | payer BC ==
[~2021-05-15] MED LIST changes: -CATHETER FLUSH 10 ML SYR IV PRN; -HOLD METFORMIN - RECEIVED CONTRAST 20 ML VIAL IV SCH; -IOHEXOL 350 MG/ML 100 ML (OMNIPAQUE 350) VIAL IV ONE; -NS 100 ML (IVPB) BAG IV ONE
== END ==
LOC: WOUNDCARE 08:04
PROVIDERS: ATTEND Family Medicine
DX: L92.8 Other granulomatous disorders of the skin and subcutaneous tissue (principal); T81.31XA Disruption of external operation (surgical) wound, not elsewhere classified, initial encounter; L98.492 Non-pressure chronic ulcer of skin of other sites with fat layer exposed; E66.01 Morbid (severe) obesity due to excess calories; E44.0 Moderate protein-calorie malnutrition; Z68.42 Body mass index [BMI] 45.0-49.9, adult
CPT/HCPCS: 11042; G0463

== ENCOUNTER → 2021-05-22 | Outpatient (CLI) | payer BC | LOC: WOUNDCARE 08:05 | PROVIDERS: ATTEND Family Medicine | DX: L92.8 Other granulomatous disorders of the skin and subcutaneous tissue (principal); I96 Gangrene, not elsewhere classified; T81.30XA Disruption of wound, unspecified, initial encounter; L98.492 Non-pressure chronic ulcer of skin of other sites with fat layer exposed; E66.01 Morbid (severe) obesity due to excess calories; E44.1 Mild protein-calorie malnutrition; Z68.42 Body mass index [BMI] 45.0-49.9, adult | CPT/HCPCS: 11042; G0463 ==

== ENCOUNTER → 2021-05-29 | Outpatient (CLI) | payer BC | LOC: WOUNDCARE 08:52 | PROVIDERS: ATTEND Family Medicine | DX: L92.8 Other granulomatous disorders of the skin and subcutaneous tissue (principal); T81.30XA Disruption of wound, unspecified, initial encounter; E66.01 Morbid (severe) obesity due to excess calories; E44.0 Moderate protein-calorie malnutrition; Z68.42 Body mass index [BMI] 45.0-49.9, adult | CPT/HCPCS: 99212 ==

== ENCOUNTER → 2021-07-06 | Outpatient (CLI) | payer BC | LOC: WOUNDCARE 09:11 | PROVIDERS: ATTEND Family Medicine | DX: T81.31XA Disruption of external operation (surgical) wound, not elsewhere classified, initial encounter (principal); O86.01 Infection of obstetric surgical wound, superficial incisional site; E66.01 Morbid (severe) obesity due to excess calories; I96 Gangrene, not elsewhere classified | CPT/HCPCS: 11042; A6197; G0463 ==

== ENCOUNTER → 2021-07-13 | Outpatient (CLI) | payer BC | LOC: WOUNDCARE 08:12 | PROVIDERS: ATTEND Family Medicine | DX: T81.31XA Disruption of external operation (surgical) wound, not elsewhere classified, initial encounter (principal); O86.01 Infection of obstetric surgical wound, superficial incisional site; E66.01 Morbid (severe) obesity due to excess calories; B37.3 Candidiasis of vulva and vagina | CPT/HCPCS: 99212 ==

== ENCOUNTER 2022-08-01 12:42 | Emergency (ER) | payer BC ==
--- NOTE | 2022-08-01 13:21 | Diagnostic Imaging Report ---
EXAMINATION: Chest 1 view HISTORY: Chest pain. Cough. COMPARISON: 01/12/2020. FINDINGS: The lung volumes are normal. No focal consolidation is seen. No large pleural effusion or pneumothorax is seen. The cardiomediastinal silhouette is normal in size and contour. No acute osseous abnormality is seen. IMPRESSION: 1. No acute pleuroparenchymal process. Dictated by: Dictated on workstation # [id number]
--- NOTE | 2022-08-01 13:29 | ED Cough/URI ---
General Chief Complaint: Cough/Cold/Flu Symptoms Stated Complaint: COUGH | EAR INFECTION | CHEST CONGESTION Nursing Triage Note: PT AMB TO RM 4 WITH C/O COUGH, EAR INFECTION AND BURNING IN HER CHEST WHEN SHE COUGHS. PT SEEN AT [facility] IN SATURDAY AND GIVEN AUGMENTIN Source: patient Exam Limitations: no limitations (FLAVIO DERAS APRN) History of Present Illness Date Seen by Provider: Aug 01, 2022 Time Seen by Provider: 12:50 Initial Comments Patient is a 31-year-old female who presents to the emergency department for evaluation of several days of cough, bilateral ear pain, sore throat, nasal congestion, and burning in her chest with coughing. She was seen at an urgent care on Saturday where she was diagnosed with bilateral ear infection and given a prescription for Augmentin. Patient states no other diagnostic testing was done at that time. She denies any known sick contacts. States her cough is mildly productive with clear secretions. She states she has a history of asthma and was told by the urgent care provider that she was wheezing. She has been using her albuterol frequently during the course of her symptoms with minimal improvement that does not last very long. Patient has not taken any steroids since the symptoms began. Patient has not had a fever per her report. Patient states she has been taking the Augmentin as prescribed since Saturday. (FLAVIO DERAS APRN) Allergies and Home Medications Allergies Coded Allergies: levofloxacin (Unverified Allergy, Mild, N/V, 10/20/18) Patient Home Medication List Home Medication List Reviewed: Yes (FLAVIO DERAS APRN) Acetaminophen (Acetaminophen) 500 Mg Tablet, 1,000 MG PO Q8HR Prescribed by: MINERVA MCBRIDE on 01/28/21840 Docusate Sodium (Dok) 100 Mg Capsule, 100 MG PO BID Prescribed by: MINERVA MCBRIDE on 01/28/21840 Enoxaparin Sodium (Enoxaparin Sodium) 60 Mg/0.6 Ml Syringe, 60 MG SQ BID@0500,1700 Prescribed by: MINERVA MCBRIDE on 01/28/21840 Ferrous Sulfate (Ferosul) 325 Mg Tablet, 325 MG PO BID WITH MEALS Prescribed by: MINERVA MCBRIDE on 01/28/21840 Furosemide (Lasix) 20 Mg Tablet, 20 MG PO DAILY Prescribed by: MINERVA MCBRIDE on 01/29/21 0651 Ibuprofen (Ibu) 600 Mg Tablet, 600 MG PO Q6HR Prescribed by: MINERVA CMBRIDE on 01/28/21 0841 Oxycodone Hcl (Oxyir Tablet) 5 Mg Tab, 5 MG PO Q4HR Prescribed by: MINERVA MCBRIDE on 01/28/21 0842 Pnv No.122/Iron/Folic Acid ( Multi Tablet) 1 Each Tablet, 1 EACH PO DAILY, (Reported) Entered as Reported by: RODNEY DICKSON on 01/26/21 1239 Prednisone (Prednisone) 20 Mg Tab, 40 MG PO DAILY Prescribed by: Flavio Deras on 08/01/22 1344 Sertraline HCl (Sertraline HCl) 100 Mg Tablet, 50 MG PO HS, (Reported) Entered as Reported by: JESSIE PRECIADO on 01/13/20 1455 Review of Systems Review of Systems Constitutional: no symptoms reported EENTM: see HPI, nose congestion, throat pain Respiratory: see HPI, cough Cardiovascular: no symptoms reported Gastrointestinal: no symptoms reported Genitourinary: no symptoms reported Musculoskeletal: no symptoms reported Skin: no symptoms reported Psychiatric/Neurological: No Symptoms Reported Hematologic/Lymphatic: No Symptoms Reported Immunological/Allergic: no symptoms reported (FLAVIO DERAS APRN) Past [place]-Cptfeo-Inettd Hx Patient Social History Tobacco Use?: No Use of E-Cig and/or Vaping dev: No Substance use?: No Alcohol Use?: No Pt feels they are or have been: No (FLAVIO DERAS APRN) Immunizations Up To Date Tetanus Booster (TDap): Less than 5yrs PED Vaccines UTD: No Influenza Vaccine Up-to-Date: No; Not Current (FLAVIO DERAS APRN) Seasonal Allergies Seasonal Allergies: No (FLAVIO DERAS APRN) Past Medical History Surgery/Hospitalization HX: ASTHMA, JAX LAP BAND, LAP BAND REVERSAL, DUODENAL SWITCH, PAXTON, APPY, T&A Surgeries: Yes (LAP BAND /REMOVAL, EAR TUBES, DUODENAL SWITCH, EGD, PEG TUBE/REMOVAL) Abdominal, Adenoidectomy, Appendectomy, Section, Ear Surgery, Gallbladder, Tonsillectomy Respiratory: Yes (NO ISSUES UNLESS HAS A COLD) Asthma Currently Using CPAP: No Currently Using BIPAP: No Cardiac: No Hypertension Neurological: Yes (SEIZURES AT FROM MENINGITIS) Headaches /Migraines, Seizure Disorder Reproductive Disorders: Yes (IRREGULAR PERIODS) Female Reproductive Disorders: Menstrual Problems Sexually Transmitted Disease: No HIV/AIDS: No Genitourinary: No UTI-Chronic Gastrointestinal: Yes (03/25/14 Biliopancreatic Diversion with Duodenal Switch, hx feeding tube) Musculoskeletal: Yes (LUMBAR) Chronic Back Pain Endocrine: No Hypothyroidsim, Diabetes, Non-Insulin dep HEENT: No Loss of Vision: Denies Hearing Impairment: Denies Cancer: No Psychosocial: Yes Bipolar, Schizophrenia, Depression Integumentary: No Blood Disorders: No Adverse Reaction/Blood Tranf: No (N/A) (FLAVIO DERAS VOICE COACH) Family Medical History Family history: Arthritis 03 MOTHER Family history: Asthma 03 FATHER Family history: Diabetes mellitus 03 MOTHER HALF SISTER Family history: Glaucoma 03 MOTHER Family history: Hypertension 03 FATHER Family history: Osteoporosis 03 MOTHER Family history: Thyroid disorder 09 SISTER (THYROIDECTOMY) Headache 03 MOTHER 09 SISTER Hearing loss 03 MOTHER History of - respiratory disease 03 FATHER Hypercholesterolemia 03 FATHER No Family History of: Abdominal aortic aneurysm Oark's disease Alcoholism Aphasia Cancer Cancer of colon Cataract Chest pain Congenital heart disease Congestive heart failure Cystic fibrosis Dementia Dysphagia Family history: Allergy Family history: Alzheimer's disease Family history: Breast disease Family history: Cardiovascular disease Family history: Coronary thrombosis Family history: Gastrointestinal disease Heart disease Hereditary disease History of - anemia History of - disorder History of drug abuse Human immunodeficiency virus (HIV) seropositivity Infertile Kidney disease Malignant neoplasm of lung Myocardial infarction Parkinson's disease Prostate cancer Psychotic disorder Seizure disorder Stroke Tuberculosis Visual impairment Physical Exam Vital Signs - First Documented 08/01/22 08/01/22 12:48 13:51 Temp 36.4 Pulse 84 Resp 20 B/P (MAP) 118/75 (89) Pulse Ox 97 O2 Delivery Room Air (KARTHIK,MONAE K DO) Capillary Refill : (FLAVIO DERAS VOICE COACH) Height: 5'6.00" Weight: 248lbs. 8.0oz. 112.636792je; 42.00 BMI Method:Stated General Appearance: WD/WN, no apparent distress HEENT: PERRL/EOMI, normal ENT inspection, TMs normal, pharynx normal Neck: non-tender, full range of motion, supple, normal inspection Respiratory: chest non-tender, lungs clear, normal breath sounds, no respiratory distress, no accessory muscle use Cardiovascular: regular rate, rhythm Gastrointestinal: normal bowel sounds, non tender, soft Extremities: normal range of motion, non-tender Neurologic/Psychiatric: no motor/sensory deficits, alert, normal mood/affect, oriented x 3 Skin: normal color, warm/dry (FLAVIO DERAS APRN) Progress/Results/Core Measures Suspected Sepsis SIRS Temperature: Pulse: 84 Respiratory Rate: 20 Blood Pressure 118 /75 Mean: 89 (FLAVIO DERAS VOICE COACH) Results/Orders Lab Results Laboratory Tests Test 08/01/22 12:49 Range/Units Influenza Type A (RT-PCR) Not Detected Not Detecte Influenza Type B (RT-PCR) Not Detected Not Detecte SARS-CoV-2 RNA (RT-PCR) Not Detected Not Detecte (MONAE ANGELES DO) Vital Signs/I&O 08/01/22 08/01/22 12:48 13:51 Temp 36.4 Pulse 84 78 Resp 20 16 B/P (MAP) 118/75 (89) 119/70 Pulse Ox 97 O2 Delivery Room Air (MONAE ANGELES DO) Vital Signs/I&O Capillary Refill : (FLAVIO DERAS VOICE COACH) Blood Pressure Mean: 89 Progress Note : Progress Note Patient is nontoxic and well-hydrated on exam. No adventitious lung sounds or increased work of breathing noted. Vital signs are reassuring without hypoxia, tachypnea, or tachycardia. She is awake alert and oriented and answers all questions appropriately. She was ambulatory to the treatment room without issue. Orders were placed for rapid COVID test, rapid flu test, and chest x-ray. COVID and flu were both noted to be negative. Chest x-ray did not reveal any acute abnormalities on my wet read. Formal radiology report agreed that no acute findings were noted. Given patient has a history of asthma and endorses recent wheezing, she will be given a dose of oral prednisone here as well as a prescription for the same for an additional 4 days. Discussed supportive care and anticipatory guidance. Patient very well may have a viral upper respiratory infection that is exacerbating her underlying asthma. I told her to continue the Augmentin as prescribed. She does not have any evidence of persistent otitis media at this time. Low suspicion for streptococcal pharyngitis gogo ecially given patient is currently on Augmentin. No significant anterior cervical adenopathy noted. Will discharge home with recommendations for supportive care and follow-up with PCP. Return precautions for urgent symptomology discussed. Patient verbalized understanding. (FLAVIO DERAS APRN) Departure Impression Primary Impression: Wheezing-associated respiratory infection (WARI) Disposition: 01 HOME, SELF-CARE Condition: Stable Departure-Patient Inst. Decision time for Depature: 13:40 (FLAVIO DERAS APRN) Referrals: LORENA CALVIN MD (PCP/Family) Primary Care Physician Patient Instructions: Asthma, Adult ED, Viral Upper Respiratory Infection, Adult (DC) Scripts Prednisone (Prednisone) 20 Mg Tab 40 MG PO DAILY for 4 Days, #8 TAB 0 Refills Prov: FLAVIO DERAS APRN 08/01/22 ATTENDING PHYSICIAN NOTE: I WAS PHYSICALLY PRESENT ER PHYSICIAN, BUT I WAS NOT INVOLVED IN ANY DECISION MAKING OR ANY CARE OF THIS PATIENT, AND I AM NOT COLLABORATING PHYSICIAN. (MONAE ANGELES DO) FLAVIO DERAS APRN Aug 01, 2022 13:29 MONAE ANGELES DO Aug 03, 2022 03:37
[2022-08-01] MEDS ORDERED: PRD20T PO (13:44)
[2022-08-01] MEDS ORDERED: predniSONE 20 MG TAB PO ONE (13:45)
[2022-08-01 13:51] VITALS: BP 119/70
== END 2022-08-01 13:58 | disposition home or self-care (01) ==
LOC: EDUNIT# 12:42 → ER 12:44
DX: J98.9 Respiratory disorder, unspecified (principal); R06.2 Wheezing; Z20.822 Contact with and (suspected) exposure to COVID-19; Z28.310 Unvaccinated for COVID-19
CPT/HCPCS: 71045; 87636

== ENCOUNTER 2022-09-02 14:21 | Emergency (ER) | payer BC ==
[~2022-09-02] VITALS: Ht 168 cm; Wt 115.0 kg
[2022-09-02] MEDS ORDERED: predniSONE 20 MG TAB PO ONE (15:15)
--- NOTE | 2022-09-02 15:19 | ED EENT ---
History of Present Illness General Chief Complaint: Ear Problems Stated Complaint: RESPIRATORY ISSUES/EAR PAIN Nursing Triage Note: patient ambulatory to room 5 w c/o right ear pain, cough, runny nose, thick green drainage, headache x 5 days. ear pain radiates into neck. Patient states she has had a tube in right ear since she was a child. patient went to [facility] saturday for the pain. [facility] provider attempted to remove the tube which was unsuccessful. Dr. Vizcaino was contacted. 2 sick kids in the home. Source: patient Exam Limitations: no limitations History of Present Illness Date Seen by Provider: Sep 02, 2022 Time Seen by Provider: 15:15 Initial Comments Patient is a 31-year-old female presents ED with right ear pain cough, nasal congestion and headache for the past 5 days. She also reports his right ear pain that radiates to the neck right-sided head. She has a history of ear infections with tympanostomy. Went to [facility] on Saturday noted a tube overlying the eardrum. She has a schedule appointment to follow-up with Dr. Vizcaino in a few weeks for tube removal. She does have 2 sick kids at home. She has been taking anti-inflammatories with his right ear without much improvement. She also reports a wet productive cough with wheezing. Has been using her inhaler with some improvement. She states he had asthma as a kid. She denies of any chest pain, abdominal pain, vomiting, diarrhea or change in urination, fever, sore throat, ear pain. She is up-to-date on her COVID vaccines. Allergies and Home Medications Allergies Coded Allergies: levofloxacin (Unverified Allergy, Mild, N/V, 10/20/18) Patient Home Medication List Home Medication List Reviewed: Yes Acetaminophen (Acetaminophen) 500 Mg Tablet, 1,000 MG PO Q8HR Prescribed by: MINERVA MCBRIDE on 01/28/21 0841 Albuterol Sulfate (Albuterol Sulfate) 2.5 Mg/3 Ml (0.083 %) Vial.neb, 2.5 MG INH Q4H Prescribed by: GAMAL WEBBER on 09/02/22 1634 Docusate Sodium (Dok) 100 Mg Capsule, 100 MG PO BID Prescribed by: MINERVA MCBRIDE on 01/28/21 0841 Enoxaparin Sodium (Enoxaparin Sodium) 60 Mg/0.6 Ml Syringe, 60 MG SQ BID@0500,1700 Prescribed by: MINERVA MCBRIDE on 01/28/21 0841 Ferrous Sulfate (Ferosul) 325 Mg Tablet, 325 MG PO BID WITH MEALS Prescribed by: MINERVA MCBRIDE on 01/28/21 0841 Furosemide (Lasix) 20 Mg Tablet, 20 MG PO DAILY Prescribed by: MINERVA MCBRIDE on 01/29/21 0651 Hydrocodone/Acetaminophen (Hydrocodone-Acetamin 5-325 mg) 5 Mg-325 Mg Tablet, 1 TAB PO Q4H PRN for PAIN-MODERATE (5-7) Prescribed by: GAMAL WEBBER on 09/02/22 1635 Ibuprofen (Ibu) 600 Mg Tablet, 600 MG PO Q6HR Prescribed by: MINERVA MCBRIDE on 01/28/21 0841 Oxycodone Hcl (Oxyir Tablet) 5 Mg Tab, 5 MG PO Q4HR Prescribed by: MINERVA MCBRIDE on 01/28/21 0842 Pnv No.122/Iron/Folic Acid ( Multi Tablet) 1 Each Tablet, 1 EACH PO DAILY, (Reported) Entered as Reported by: RODNEY DICKSON on 01/26/21 1239 Prednisone (Prednisone) 20 Mg Tab, 40 MG PO DAILY Prescribed by: Flavio Deras on 08/01/22 1344 Prednisone (Prednisone) 20 Mg Tab, 40 MG PO DAILY Prescribed by: GAMAL WEBBER on 09/02/22 1634 Sertraline HCl (Sertraline HCl) 100 Mg Tablet, 50 MG PO HS, (Reported) Entered as Reported by: JESSIE PRECIADO on 01/13/20 1455 Review of Systems Review of Systems Constitutional: No chills, No diaphoresis, No malaise Eyes: Denies Decreased Acuity, Denies Pain, Denies Photophobia, Denies Previous Injury Ears: Denies Dizziness, Denies Pain Nose: denies clots; congestion Mouth: denies loose teeth, denies pain, denies swelling, denies clear discharge Throat: denies pain, denies swelling, denies hoarse Respiratory: cough; No dyspnea on exertion; short of breath, wheezing Musculoskeletal: No back pain, No joint pain Skin: No change in color, No change in hair/nails Past Grfksfw-Frhwjw-Zrudgk Hx Patient Social History Tobacco Use?: No Substance use?: No Alcohol Use?: No Immunizations Up To Date Tetanus Booster (TDap): Less than 5yrs PED Vaccines UTD: No Seasonal Allergies Seasonal Allergies: No Past Medical History Surgery/Hospitalization HX: ASTHMA, JAX LAP BAND, LAP BAND REVERSAL, DUODENAL SWITCH, PAXTON, APPY, T&A Surgeries: Yes (LAP BAND /REMOVAL, EAR TUBES, DUODENAL SWITCH, EGD, PEG TUBE/REMOVAL) Abdominal, Adenoidectomy, Appendectomy, Section, Ear Surgery, Gallbladder, Tonsillectomy Respiratory: Yes (NO ISSUES UNLESS HAS A COLD) Asthma Currently Using CPAP: No Currently Using BIPAP: No Cardiac: No Hypertension Neurological: Yes (SEIZURES AT FROM MENINGITIS) Headaches /Migraines, Seizure Disorder Reproductive Disorders: Yes (IRREGULAR PERIODS) Female Reproductive Disorders: Menstrual Problems Sexually Transmitted Disease: No HIV/AIDS: No Genitourinary: No UTI-Chronic Gastrointestinal: Yes (03/25/14 Biliopancreatic Diversion with Duodenal Switch, hx feeding tube) Musculoskeletal: Yes (LUMBAR) Chronic Back Pain Endocrine: No Hypothyroidsim, Diabetes, Non-Insulin dep HEENT: No Loss of Vision: Denies Hearing Impairment: Denies Cancer: No Psychosocial: Yes Bipolar, Schizophrenia, Depression Integumentary: No Blood Disorders: No Adverse Reaction/Blood Tranf: No (N/A) Family Medical History Family history: Arthritis 03 MOTHER Family history: Asthma 03 FATHER Family history: Diabetes mellitus 03 MOTHER HALF SISTER Family history: Glaucoma 03 MOTHER Family history: Hypertension 03 FATHER Family history: Osteoporosis 03 MOTHER Family history: Thyroid disorder 09 SISTER (THYROIDECTOMY) Headache 03 MOTHER 09 SISTER Hearing loss 03 MOTHER History of - respiratory disease 03 FATHER Hypercholesterolemia 03 FATHER No Family History of: Abdominal aortic aneurysm [place]'s disease Alcoholism Aphasia Cancer Cancer of colon Cataract Chest pain Congenital heart disease Congestive heart failure Cystic fibrosis Dementia Dysphagia Family history: Allergy Family history: Alzheimer's disease Family history: Breast disease Family history: Cardiovascular disease Family history: Coronary thrombosis Family history: Gastrointestinal disease Heart disease Hereditary disease History of - anemia History of - disorder History of drug abuse Human immunodeficiency virus (HIV) seropositivity Infertile Kidney disease Malignant neoplasm of lung Myocardial infarction Parkinson's disease Prostate cancer Psychotic disorder Seizure disorder Stroke Tuberculosis Visual impairment Physical Exam Vital Signs Vital Signs - First Documented 09/02/22 14:48 Temp 36.8 Pulse 67 Resp 16 B/P (MAP) 142/80 (100) Pulse Ox 98 O2 Delivery Room Air Height, Weight, BMI Height: 5'6.00" Weight: 248lbs. 8.0oz. [id number]; 40.00 BMI Method:Stated General Appearance: WD/WN, no apparent distress Eyes: bilateral eye normal inspection, bilateral eye PERRL, bilateral eye EOMI Ears: right ear other (Tympanostomy tube noted. Mild erythema and swelling of the right TM. Left TM clear. Oropharynx pain without erythema, swelling, exudate. 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, no motor/sensory deficits, alert, normal mood/affect, oriented x 3 Skin: normal color, warm/dry Progress/Results/Core Measures Results/Orders Lab Results Laboratory Tests Test 09/02/22 15:24 Range/Units Influenza Type A (RT-PCR) Not Detected Not Detecte Influenza Type B (RT-PCR) Not Detected Not Detecte SARS-CoV-2 RNA (RT-PCR) Not Detected Not Detecte My Orders Orders - DALTON ESPINAL Prednisone Tablet (Deltasone Tablet) (09/02/22 15:15) Covid 19 Inhouse Test (09/02/22 15:14) Influenza A And B By Pcr (09/02/22 15:14) Chest 1 View, Ap/Pa Only (09/02/22 15:14) Medications Given in ED Current Medications Medications Dose Ordered Sig/Tulio Route Start Time Stop Time Status Last Admin Dose Admin Prednisone 50 mg ONCE ONCE PO 09/02/22 15:15 09/02/22 15:16 DC 09/02/22 15:21 50 MG Vital Signs/I&O 09/02/22 14:48 Temp 36.8 Pulse 67 Resp 16 B/P (MAP) 142/80 (100) Pulse Ox 98 O2 Delivery Room Air Blood Pressure Mean: 100 Departure Communication (PCP) Patient with right otitis media. Tympanostomy tube noted along the right TM. No obvious ear canal abscess. She reports right-sided ear, head pain likely secondary to otitis media. She also reports a wet productive cough. Subtle wheezing noted, but improved after cough. Chest x-ray negative for pneumonia. COVID influenza negative. She was given dose of prednisone. She states she has had asthma in the past and does have an albuterol nebulizer at home. Requesting refill. Refused nebulizer treatment at this time. Will discharge with short burst steroids secondary to the wheezing. She is able to talk in complete sentences. Few days worth of pain medication. She scheduled follow-up with Dr. Vizcaino in a few weeks. Return precaution were discussed with patient. Anti- inflammatories for pain. Neuro exam unremarkable. Impression Primary Impression: Otitis media Additional Impression: Cough Disposition: HOME, SELF-CARE Condition: Stable Departure-Patient Inst. Decision time for Depature: 16:30 Referrals: LORENA CALVIN MD (PCP/Family) Primary Care Physician Patient Instructions: Ear Infection ED Scripts Hydrocodone/Acetaminophen (Hydrocodone-Acetamin 5-325 mg) 5 Mg-325 Mg Tablet 1 TAB PO Q4H PRN for PAIN-MODERATE (5-7), #6 TAB Prov: DALTON ESPINAL 09/02/22 Prednisone (Prednisone) 20 Mg Tab 40 MG PO DAILY for 4 Days, #8 TAB Prov: DALTON ESPINAL 09/02/22 Albuterol Sulfate (Albuterol Sulfate) 2.5 Mg/3 Ml (0.083 %) Vial.neb 2.5 MG INH Q4H, #30 EA Prov: DALTON ESPINAL 09/02/22 DALTON ESPINAL Sep 02, 2022 15:19
--- NOTE | 2022-09-02 16:01 | Diagnostic Imaging Report ---
INDICATION: Right ear pain, runny nose, discharge. EXAMINATION: Productive nasal drainage. FINDINGS: The lungs are clear. There is no failure, effusion or pneumothorax. IMPRESSION: Negative. Dictated by: Dictated on workstation # [id number]
[2022-09-02] MEDS ORDERED: ACHD5005 PO (16:34)
[2022-09-02] MEDS ORDERED: ALBU2.5V4 INH (16:34)
[2022-09-02] MEDS ORDERED: PRD20T PO (16:34)
[2022-09-02 16:45] VITALS: BP 139/93
== END 2022-09-02 16:45 | disposition home or self-care (01) ==
LOC: EDUNIT# 14:21 → ER 14:22
DX: H66.91 Otitis media, unspecified, right ear (principal); R05.9 Cough, unspecified; Z96.22 Myringotomy tube(s) status; Z20.822 Contact with and (suspected) exposure to COVID-19; Z28.310 Unvaccinated for COVID-19
CPT/HCPCS: 71045; 87636

== ENCOUNTER 2022-11-19 12:46 | Outpatient (RCR) | payer BC ==
[2022-11-15 12:46] VITALS: BP 120/68
[~2022-11-19] VITALS: Ht 175 cm; Wt 115.0 kg
[~2022-11-19 12:46] MED LIST changes: +ALBU2.5V4 INH; +IRON SUCROSE 200 MG/10 ML (VENOFER) VIAL IV SCH
[2022-11-19] MEDS ORDERED: IRON SUCROSE 200 MG/10 ML (VENOFER) VIAL IV ONE ×2 (12:54→14:15)
[2022-11-19 13:03] VITALS: BP 122/70
== END 2022-12-05 | disposition home or self-care (01) ==
LOC: SDC 12:46
PROVIDERS: ATTEND Family Medicine
DX: D50.8 Other iron deficiency anemias (principal)
CPT/HCPCS: 96365

== ENCOUNTER 2023-01-21 10:24 | Outpatient (CLI) | payer BC ==
[~2023-01-21] VITALS: Ht 167.7 cm; Wt 119.5 kg
[~2023-01-21 10:24] MED LIST changes: -IRON SUCROSE 200 MG/10 ML (VENOFER) VIAL IV SCH
[2023-01-21] MEDS ORDERED: IRON SUCROSE 200 MG/10 ML (VENOFER) VIAL IV ONE (10:45)
[2023-01-21 11:45] VITALS: BP 121/67
== END 2023-01-21 11:45 | disposition home or self-care (01) ==
LOC: SDC 10:24
PROVIDERS: ATTEND Family Medicine
DX: D50.8 Other iron deficiency anemias (principal); Z98.84 Bariatric surgery status
CPT/HCPCS: 96365